=== PATIENT | male | born 1945 | race Caucasian/White ===

== ENCOUNTER → 2017-10-15 | Outpatient (CLI) | payer MEDICARE ==
[~2017-10-15] MED LIST: ALBU2.5V5 NEB; ALBU3IS INH; ALBU90OI INH; AMIODARONE HCL100 MG; AMOCLA500 PO; ASPI325 PO; ASPI81CH PO; ASPI81EC PO; ATEN25 PO; ATEN50; ATOR10 PO; ATOR20 PO; ATOR40TA; ATOR40TA PO; ATORVASTATIN CA10 MG PO; Acidophilus La100 GM PO; Amoxicillin500 MG PO; BECL40OI INH; BETA.05TCA TOP; BUDE10.22 INH; BUDE6HFA INH; BUPRENORPHINE HC2 MG SL; Bactrim Ds Tab1 EACH PO; Brovana15 MCG/2 M INH; CARV6.25 PO; CEFU50SU PO; CEPH500 PO; CILO100 PO; CIPR500 PO; CLOP75 PO; CYCL10 PO; Carvedilol6.25 MG PO; Coumadin5 MG PO; DELTASONE20 MG PO; DIPASPER PO; DULO30 PO; FELO5CR; FURO40 PO; GABA300; GABA300 PO; GABA600 PO; HYDACE10B; HYDACE10B PO; HYDACE5; HYDMOR2 PO; HYDRA25 PO; Hydrocodone-Ap1 EA20 PO; INSLIS75I; ISODIN10; ISOMON30 PO; Isosorbide Mono30 MG PO; LEVO750 PO; LISI5 PO; METH10 PO; Macrobid 100 M100 MG PO; NAPR500 PO; Norco 10-325 T1 EACH PO; POTCHL20ER PO; PRED10 PO; Prednisone20 MG PO; RAMI5; RAMI5 PO; Roxicet 5-3251 EACH PO; TERB250 PO; TRAM50 PO; XARELTO20 MG PO; [UNRECOGNIZED DRUG - REMARK]
[2017-10-15 16:33] LABS: BASOPHILS ABSOLUTE AUTO 0.05 K/mm3 (0.00-0.23); BASOPHILS PERCENT AUTO 0 % (0-2); EOSINOPHILS ABSOLUTE AUTO 0.12 K/mm3 (0.00-0.68); EOSINOPHILS PERCENT AUTO 1 % (0-6); Hematocrit 36.9 % (37.0-53.0); Hemoglobin 11.2 g/dL (13.5-17.5); IMMATURE GRAN ABSOLUTE AUTO 0.05 K/mm3 (0.00-0.10); IMMATURE GRAN PERCENT AUTO 0 % (0-1); LYMPHOCYTES ABSOLUTE AUTO 2.36 K/mm3 (0.84-5.20); LYMPHOCYTES PERCENT AUTO 21 % (21-46); MONOCYTES ABSOLUTE AUTO 1.16 K/mm3 (0.16-1.47); MONOCYTES PERCENT AUTO 10 % (4-13); Mean Corpuscular HGB 24.4 pg (26.0-34.0); Mean Corpuscular HGB Conc 30.4 g/dL (31.5-36.5); Mean Corpuscular Volume 80 fL (80-100); Mean Platelet Volume 9.6 fL (9.1-12.4); NEUTROPHILS ABSOLUTE AUTO 7.73 K/mm3 (1.96-9.15); NEUTROPHILS PERCENT AUTO 68 % (41-73); Platelet Count 303 K/mm3 (150-400); RDW Coefficient Variation 16.8 % (11.7-14.2); Red Blood Cell Count 4.59 M/mm3 (4.30-5.90); White Blood Cell Count 11.47 K/mm3 (4.00-11.30)
[2017-10-15 16:51] LABS: Albumin, Blood 2.4 g/dL (3.4-5.0); Albumin/Globulin Ratio 0.5 (0.8-1.8); Bilirubin, Total 0.3 mg/dL (0.1-1.0); Bun/Creatinine Ratio 18.2 (12.0-20.0); Calcium, Blood 8.8 mg/dL (8.5-10.1); Creatinine, Blood 2.69 mg/dL (0.60-1.20); Globulin, Blood 4.7 g/dL (2.2-4.0); Potassium, Blood 4.2 mmol/L (3.5-5.5); Total Protein, Blood 7.1 g/dL (6.4-8.2)
== END | disposition home or self-care (01) ==
LOC: LAB SHORT 16:26
PROVIDERS: Physician Assistant
DX: R06.00 Dyspnea, unspecified (principal)
CPT/HCPCS: 80053; 83880; 85025

== ENCOUNTER 2017-10-16 17:03 | Emergency (ER) | payer MEDICARE ==
[~2017-10-16] VITALS: Ht 172.7 cm; Wt 84.8 kg
[~2017-10-16 17:03] MED LIST changes: -ALBU2.5V5 NEB; -AMIODARONE HCL100 MG; -AMOCLA500 PO; -ATOR40TA PO; -Acidophilus La100 GM PO; -BUPRENORPHINE HC2 MG SL; -Bactrim Ds Tab1 EACH PO; -DELTASONE20 MG PO; -DULO30 PO; -HYDMOR2 PO; -Prednisone20 MG PO; -TERB250 PO
[2017-10-16] MEDS ORDERED: AMIODARONE HCL100 MG (17:46)
[2017-10-16] MEDS ORDERED: ATOR40TA PO (17:47)
[2017-10-16] MEDS ORDERED: AMOCLA500 PO (17:48)
[2017-10-16] MEDS ORDERED: Brovana15 MCG/2 M INH (17:48)
[2017-10-16] MEDS ORDERED: CLOP75 PO (17:49)
[2017-10-16] MEDS ORDERED: CARV6.25 PO (17:49)
[2017-10-16] MEDS ORDERED: DULO30 PO (17:50)
[2017-10-16] MEDS ORDERED: TERB250 PO (17:51)
[2017-10-16] MEDS ORDERED: HYDMOR2 PO (17:53)
[2017-10-16 17:59] LABS: BASOPHILS ABSOLUTE AUTO 0.03 K/mm3 (0.00-0.23); BASOPHILS PERCENT AUTO 0 % (0-2); EOSINOPHILS ABSOLUTE AUTO 0.11 K/mm3 (0.00-0.68); EOSINOPHILS PERCENT AUTO 1 % (0-6); Hematocrit 38.4 % (37.0-53.0); Hemoglobin 11.6 g/dL (13.5-17.5); IMMATURE GRAN ABSOLUTE AUTO 0.04 K/mm3 (0.00-0.10); IMMATURE GRAN PERCENT AUTO 1 % (0-1); LYMPHOCYTES ABSOLUTE AUTO 2.23 K/mm3 (0.84-5.20); LYMPHOCYTES PERCENT AUTO 27 % (21-46); MONOCYTES ABSOLUTE AUTO 1.09 K/mm3 (0.16-1.47); MONOCYTES PERCENT AUTO 13 % (4-13); Mean Corpuscular HGB 24.5 pg (26.0-34.0); Mean Corpuscular HGB Conc 30.2 g/dL (31.5-36.5); Mean Corpuscular Volume 81 fL (80-100); Mean Platelet Volume 9.3 fL (9.1-12.4); NEUTROPHILS ABSOLUTE AUTO 4.86 K/mm3 (1.96-9.15); NEUTROPHILS PERCENT AUTO 58 % (41-73); Platelet Count 286 K/mm3 (150-400); RDW Coefficient Variation 16.7 % (11.7-14.2); RDW Standard Deviation 50.4 fL (35.1-46.3); Red Blood Cell Count 4.73 M/mm3 (4.30-5.90); White Blood Cell Count 8.36 K/mm3 (4.00-11.30)
[2017-10-16 18:17] LABS: Albumin, Blood 2.4 g/dL (3.4-5.0); Albumin/Globulin Ratio 0.5 (0.8-1.8); Bilirubin, Total 0.2 mg/dL (0.1-1.0); Bun/Creatinine Ratio 23.3 (12.0-20.0); Calcium, Blood 8.5 mg/dL (8.5-10.1); Creatinine, Blood 2.32 mg/dL (0.60-1.20); Globulin, Blood 4.6 g/dL (2.2-4.0); Potassium, Blood 3.9 mmol/L (3.5-5.5)
[2017-10-16 18:38] LABS: Source, Urine Clean Catch
[2017-10-16 18:52] LABS: Appearance, Urine Turbid (Clear); Bilirubin, Urine Neg (Neg); Blood, Urine 4+ (Neg); Color, Urine Yellow (P-Yellow); Glucose Qualitative, Urine Neg (Neg); Ketones, Urine Neg (Neg); Leukocyte Esterase, Urine 3+ (Neg); Nitrite, Urine Neg (Neg); Protein, Urine 3+ (Neg); Specific Gravity, Urine 1.015 (1.003-1.022); Urobilinogen, Urine NORM (Normal)
[2017-10-16 19:00] LABS: White Blood Cells, Urine TNTC /hpf (0-5)
[2017-10-16 19:01] LABS: Amorphous Heavy (0-Heavy); Bacteria Many /hpf; Squamous Epithelial Cells Few /hpf (Few)
[2017-10-16 19:11] LABS: Influenza A Negative (NEGATIVE); Influenza B Negative (NEGATIVE)
[2017-10-16] MEDS ORDERED: Bactrim Ds Tab1 EACH PO (19:28)
[2017-10-16] MEDS ORDERED: Prednisone20 MG PO (19:29)
== END 2017-10-16 19:50 | disposition home or self-care (01) ==
LOC: ER 17:03
PROVIDERS: Emergency Medicine; Physician Assistant
DX: J44.1 Chronic obstructive pulmonary disease with (acute) exacerbation (principal); J20.9 Acute bronchitis, unspecified; J44.0 Chronic obstructive pulmonary disease with (acute) lower respiratory infection; N39.0 Urinary tract infection, site not specified; Z88.8 Allergy status to other drugs, medicaments and biological substances; Z79.899 Other long term (current) drug therapy; Z79.82 Long term (current) use of aspirin; Z79.2 Long term (current) use of antibiotics; I25.2 Old myocardial infarction; Z85.51 Personal history of malignant neoplasm of bladder
CPT/HCPCS: 36415; 71020; 80053; 81001; 83880; 85025; 87086; 87804; 93005; 93010; 96374; 99284; J1170

== ENCOUNTER → 2017-11-25 | Outpatient (CLI) | payer MEDICARE ==
[~2017-11-25] MED LIST changes: +ALBU2.5V5 NEB; +AMIODARONE HCL100 MG; +AMOCLA500 PO; +ATOR40TA PO; +Acidophilus La100 GM PO; +BUPRENORPHINE HC2 MG SL; +Bactrim Ds Tab1 EACH PO; +DELTASONE20 MG PO; +DULO30 PO; +HYDMOR2 PO; +Prednisone20 MG PO; +TERB250 PO
[2017-11-25 10:54] LABS: Influenza A Negative (NEGATIVE); Influenza B Negative (NEGATIVE)
== END ==
LOC: LAB 10:23
PROVIDERS: Nurse Practitioner Family
DX: J40 Bronchitis, not specified as acute or chronic (principal); R05 Cough; N39.0 Urinary tract infection, site not specified
CPT/HCPCS: 87086; 87804

== ENCOUNTER → 2017-12-22 | Outpatient (CLI) | payer MEDICARE | END | disposition home or self-care (01) | LOC: LAB 13:44 | DX: N39.0 Urinary tract infection, site not specified (principal) | CPT/HCPCS: 87086 ==

== ENCOUNTER 2018-04-11 02:29 | Inpatient (IN) | payer MEDICARE ==
[~2018-04-11] VITALS: Ht 172.7 cm; Wt 80.7 kg
[~2018-04-11 02:29] MED LIST changes: -ALBU2.5V5 NEB; -Acidophilus La100 GM PO; -BUPRENORPHINE HC2 MG SL; -DELTASONE20 MG PO
[2018-04-11 03:22] LABS: Hematocrit 41.1 % (37.0-53.0); Hemoglobin 13.3 g/dL (13.5-17.5); Mean Corpuscular HGB 27.2 pg (26.0-34.0); Mean Corpuscular HGB Conc 32.4 g/dL (31.5-36.5); Mean Corpuscular Volume 84 fL (80-100); RDW Coefficient Variation 14.3 % (11.7-14.2); RDW Standard Deviation 43.8 fL (35.1-46.3); Red Blood Cell Count 4.89 M/mm3 (4.30-5.90)
[2018-04-11 03:26] LABS: Platelet Count 230 K/mm3 (150-400)
[2018-04-11 03:46] LABS: BAND PERCENT MAN 32 % (0-8); BASOPHILS PERCENT MAN 0 % (0-2); EOSINOPHILS PERCENT MAN 0 % (0-6); LYMPHOCYTES ABSOLUTE MAN 0.82 K/mm3 (0.84-5.20); LYMPHOCYTES PERCENT MAN 4 % (21-46); METAMYELOCYTE ABSOLUTE MAN 1.23 K/mm3 (0.00-0.00); METAMYELOCYTE PERCENT MAN 6 % (0-0); MONOCYTES PERCENT MAN 1 % (4-13); MYELOCYTE PERCENT MAN 1 % (0-0); NEUTROPHILS ABSOLUTE MAN 18.12 K/mm3 (1.96-9.15); SEG NEUTROPHILS PERCENT MAN 56 % (41-73); TOTAL CELLS COUNTED 100
[2018-04-11 04:11] LABS: Albumin, Blood 2.8 g/dL (3.4-5.0); Albumin/Globulin Ratio 0.6 (0.8-1.8); Bilirubin, Total 0.7 mg/dL (0.1-1.0); Bun/Creatinine Ratio 17.4 (12.0-20.0); Calcium, Blood 8.8 mg/dL (8.5-10.1); Creatinine, Blood 2.59 mg/dL (0.60-1.20); Globulin, Blood 4.7 g/dL (2.2-4.0); Potassium, Blood 4.7 mmol/L (3.5-5.5); Total Protein, Blood 7.5 g/dL (6.4-8.2)
[2018-04-11 06:10] LABS: Hematocrit 40.8 % (37.0-53.0); Mean Corpuscular HGB 27.3 pg (26.0-34.0); Mean Corpuscular HGB Conc 31.9 g/dL (31.5-36.5); Mean Corpuscular Volume 86 fL (80-100); Mean Platelet Volume 10.1 fL (9.1-12.4); Platelet Count 226 K/mm3 (150-400); RDW Coefficient Variation 14.1 % (11.7-14.2); RDW Standard Deviation 44.1 fL (35.1-46.3); Red Blood Cell Count 4.77 M/mm3 (4.30-5.90); White Blood Cell Count 19.19 K/mm3 (4.00-11.30)
[2018-04-11 06:29] LABS: Albumin, Blood 2.7 g/dL (3.4-5.0); Albumin/Globulin Ratio 0.6 (0.8-1.8); Bilirubin, Total 0.6 mg/dL (0.1-1.0); Calcium, Blood 8.6 mg/dL (8.5-10.1); Creatinine, Blood 2.53 mg/dL (0.60-1.20); Globulin, Blood 4.9 g/dL (2.2-4.0); Total Protein, Blood 7.6 g/dL (6.4-8.2)
[2018-04-12 04:35] LABS: BASOPHILS ABSOLUTE AUTO 0.02 K/mm3 (0.00-0.23); BASOPHILS PERCENT AUTO 0 % (0-2); EOSINOPHILS PERCENT AUTO 0 % (0-6); Hematocrit 41.4 % (37.0-53.0); Hemoglobin 13.7 g/dL (13.5-17.5); IMMATURE GRAN ABSOLUTE AUTO 0.06 K/mm3 (0.00-0.10); IMMATURE GRAN PERCENT AUTO 0 % (0-1); LYMPHOCYTES ABSOLUTE AUTO 0.61 K/mm3 (0.84-5.20); LYMPHOCYTES PERCENT AUTO 4 % (21-46); MONOCYTES ABSOLUTE AUTO 0.85 K/mm3 (0.16-1.47); MONOCYTES PERCENT AUTO 6 % (4-13); Mean Corpuscular HGB 26.9 pg (26.0-34.0); Mean Corpuscular HGB Conc 33.1 g/dL (31.5-36.5); Mean Corpuscular Volume 81 fL (80-100); Mean Platelet Volume 10.2 fL (9.1-12.4); NEUTROPHILS ABSOLUTE AUTO 13.84 K/mm3 (1.96-9.15); NEUTROPHILS PERCENT AUTO 90 % (41-73); Platelet Count 271 K/mm3 (150-400); RDW Standard Deviation 41.1 fL (35.1-46.3); Red Blood Cell Count 5.09 M/mm3 (4.30-5.90); White Blood Cell Count 15.38 K/mm3 (4.00-11.30)
[2018-04-12 04:47] LABS: Bun/Creatinine Ratio 28.2 (12.0-20.0); Calcium, Blood 9.2 mg/dL (8.5-10.1); Creatinine, Blood 2.38 mg/dL (0.60-1.20); Potassium, Blood 4.4 mmol/L (3.5-5.5)
[2018-04-12] MEDS ORDERED: BUPRENORPHINE HC2 MG SL (18:46)
[2018-04-13 04:26] LABS: Hematocrit 40.4 % (37.0-53.0); Mean Corpuscular HGB 26.2 pg (26.0-34.0); Mean Corpuscular HGB Conc 32.2 g/dL (31.5-36.5); Mean Corpuscular Volume 82 fL (80-100); Mean Platelet Volume 10.9 fL (9.1-12.4); NRBC ABSOLUTE 0.02 K/mm3 (0.00-0.02); NRBC Auto 0.1 /100 WBC (0.0-0.2); Platelet Count 276 K/mm3 (150-400); RDW Coefficient Variation 14.5 % (11.7-14.2); RDW Standard Deviation 42.3 fL (35.1-46.3); Red Blood Cell Count 4.96 M/mm3 (4.30-5.90); White Blood Cell Count 14.87 K/mm3 (4.00-11.30)
[2018-04-13 04:54] LABS: Bun/Creatinine Ratio 38.4 (12.0-20.0); Creatinine, Blood 2.11 mg/dL (0.60-1.20); Potassium, Blood 4.2 mmol/L (3.5-5.5)
[2018-04-13] MEDS ORDERED: DELTASONE20 MG PO (11:31)
[2018-04-13] MEDS ORDERED: ALBU2.5V5 NEB (11:32)
[2018-04-13] MEDS ORDERED: Acidophilus La100 GM PO (11:33)
[2018-04-13] MEDS ORDERED: LEVO750 PO (11:35)
== END 2018-04-13 13:50 | disposition home or self-care (01) | DRG 871 ==
LOC: ER 02:29 → ERHOLD 05:02 → ICUW 12:53
PROVIDERS: Emergency Medicine; Internal Medicine
DX: A41.9 Sepsis, unspecified organism (principal); J18.9 Pneumonia, unspecified organism; J96.01 Acute respiratory failure with hypoxia; N18.4 Chronic kidney disease, stage 4 (severe); J44.1 Chronic obstructive pulmonary disease with (acute) exacerbation; J44.0 Chronic obstructive pulmonary disease with (acute) lower respiratory infection; N17.9 Acute kidney failure, unspecified; G89.29 Other chronic pain
CPT/HCPCS: 36415; 71046; 80048; 80053; 83605; 83880; 84145; 85025; 85027; 93005; 93010; 94640; 96365; 96368; 96372; 96375; 96376; 99285; J0456; J0696; J1650; J1956; J2405; J2930; J3010; J7030; J7050

== ENCOUNTER → 2018-10-19 | Outpatient (CLI) | payer MEDICARE ==
[~2018-10-19] MED LIST changes: +ALBU2.5V5 NEB; +ANORO ELLIPTA1 EACH INH; +Acidophilus La100 GM PO; +BUPRENORPHINE HC2 MG SL; +CIPR250 PO; +DELTASONE20 MG PO; +Desyrel150 MG; +HYDHCL25 PO; +Keflex500 MG PO
[2018-10-19 17:36] LABS: Appearance, Urine Hazy (Clear); Bilirubin, Urine Neg (Neg); Blood, Urine 3+ (Neg); Color, Urine Yellow (P-Yellow); Glucose Qualitative, Urine Neg (Neg); Ketones, Urine Neg (Neg); Leukocyte Esterase, Urine 3+ (Neg); Nitrite, Urine Pos (Neg); Protein, Urine 3+ (Neg); Specific Gravity, Urine 1.015 (1.003-1.022); Urobilinogen, Urine NORM (Normal)
[2018-10-19 18:20] LABS: Red Blood Cells, Urine 0-2 /hpf (0-2)
[2018-10-19 18:21] LABS: Bacteria Few /hpf; Squamous Epithelial Cells Not Seen /hpf (Few)
== END | disposition home or self-care (01) ==
LOC: LAB 14:15 → LAB SHORT 14:15
PROVIDERS: Internal Medicine Nephrology
DX: N39.0 Urinary tract infection, site not specified (principal)
CPT/HCPCS: 81001; 87077; 87086; 87186

== ENCOUNTER 2018-10-24 08:59 | Emergency (ER) | payer MEDICARE ==
[~2018-10-24] VITALS: Ht 172.7 cm; Wt 102.1 kg
[~2018-10-24 08:59] MED LIST changes: -ANORO ELLIPTA1 EACH INH; -CIPR250 PO; -Desyrel150 MG; -HYDHCL25 PO; -Keflex500 MG PO
[2018-10-24 09:39] LABS: BASOPHILS ABSOLUTE AUTO 0.08 K/mm3 (0.00-0.23); BASOPHILS PERCENT AUTO 1 % (0-2); EOSINOPHILS ABSOLUTE AUTO 0.48 K/mm3 (0.00-0.68); EOSINOPHILS PERCENT AUTO 4 % (0-6); Hematocrit 37.3 % (37.0-53.0); Hemoglobin 11.4 g/dL (13.5-17.5); IMMATURE GRAN ABSOLUTE AUTO 0.14 K/mm3 (0.00-0.10); IMMATURE GRAN PERCENT AUTO 1 % (0-1); LYMPHOCYTES ABSOLUTE AUTO 4.03 K/mm3 (0.84-5.20); LYMPHOCYTES PERCENT AUTO 31 % (21-46); MONOCYTES ABSOLUTE AUTO 1.48 K/mm3 (0.16-1.47); MONOCYTES PERCENT AUTO 11 % (4-13); Mean Corpuscular HGB 24.6 pg (26.0-34.0); Mean Corpuscular HGB Conc 30.6 g/dL (31.5-36.5); Mean Corpuscular Volume 80 fL (80-100); Mean Platelet Volume 9.1 fL (9.1-12.4); NEUTROPHILS PERCENT AUTO 53 % (41-73); NRBC ABSOLUTE 0.21 K/mm3 (0.00-0.02); NRBC Auto 1.6 /100 WBC (0.0-0.2); Platelet Count 428 K/mm3 (150-400); RDW Coefficient Variation 15.5 % (11.7-14.2); Red Blood Cell Count 4.64 M/mm3 (4.30-5.90); White Blood Cell Count 13.11 K/mm3 (4.00-11.30)
[2018-10-24 09:50] LABS: Alanine Aminotransfer (ALT/SGP 26 U/L (12-78); Albumin, Blood 2.3 g/dL (3.4-5.0); Albumin/Globulin Ratio 0.5 (0.8-1.8); Alk Phos 114 U/L (50-136); Anion Gap 10 mmol/L (6-16); Aspartate Aminotrans (AST/SGOT 25 U/L (12-37); Bilirubin, Total 0.5 mg/dL (0.1-1.0); Blood Urea Nitrogen 42 mg/dL (8-24); CO2, Blood 21 mmol/L (21-32); Chloride, Blood 105 mmol/L (98-108); Ethanol (Alcohol), Blood, Med <3 mg/dL; Globulin, Blood 4.8 g/dL (2.2-4.0); Glomerular Filtration Rate 33 (60-); Glucose, Blood 93 mg/dL (70-99); Potassium, Blood 3.8 mmol/L (3.5-5.5); Sodium, Blood 136 mmol/L (136-145); Total Protein, Blood 7.1 g/dL (6.4-8.2)
[2018-10-24 09:52] LABS: International Normalized Ratio 1.09; Prothrombin Time Results 11.2 Sec (9.7-11.5)
[2018-10-24 10:51] LABS: Source, Urine Urostomy Bag
[2018-10-24] MEDS ORDERED: CIPR250 PO (10:53)
[2018-10-24] MEDS ORDERED: ANORO ELLIPTA1 EACH INH (10:53)
[2018-10-24] MEDS ORDERED: BUPRENORPHINE HC2 MG SL (10:54)
[2018-10-24] MEDS ORDERED: ATOR10 PO (10:55)
[2018-10-24] MEDS ORDERED: HYDHCL25 PO (10:55)
[2018-10-24] MEDS ORDERED: GABA300 PO (10:55)
[2018-10-24 10:56] LABS: Bilirubin, Urine Neg (Neg); Blood, Urine 4+ (Neg); Glucose Qualitative, Urine Neg (Neg); Ketones, Urine Neg (Neg); Leukocyte Esterase, Urine 3+ (Neg); Nitrite, Urine Neg (Neg); Protein, Urine 3+ (Neg); Urobilinogen, Urine NORM (Normal)
[2018-10-24] MEDS ORDERED: ALBU90OI INH (10:56)
[2018-10-24] MEDS ORDERED: Desyrel150 MG (10:56)
[2018-10-24 11:08] LABS: U Amphetamine Screen Not Detected; U Barbituate Screen Not Detected; U Benzodiazapine Screen Not Detected; U Buprenorphine Screen DETECTED; U Cannabinoids Screen Not Detected; U Cocaine Screen Not Detected; U Methadone Screen Not Detected; U Methamphetamine Screen Not Detected; U Opiates Screen Not Detected; U Oxycodone Screen Not Detected; U Phencyclidine Screen Not Detected; U Propoxyphene Screen Not Detected
[2018-10-24 11:19] LABS: Appearance, Urine Hazy (Clear); Bacteria Mod /hpf; Color, Urine Yellow (P-Yellow); Squamous Epithelial Cells Not Seen /hpf (Few); White Blood Cells, Urine 50-100 /hpf (0-5)
[2018-10-24] MEDS ORDERED: Keflex500 MG PO (11:34)
== END 2018-10-24 11:42 | disposition home or self-care (01) ==
LOC: ER 08:59
PROVIDERS: Physician Assistant
DX: I63.9 Cerebral infarction, unspecified (principal); N39.0 Urinary tract infection, site not specified; I50.9 Heart failure, unspecified; J44.9 Chronic obstructive pulmonary disease, unspecified; N18.4 Chronic kidney disease, stage 4 (severe); I25.2 Old myocardial infarction; Z95.5 Presence of coronary angioplasty implant and graft; F17.220 Nicotine dependence, chewing tobacco, uncomplicated
CPT/HCPCS: 36415; 70450; 80053; 81001; 85025; 85610; 85730; 87077; 87086; 87186; 93005; 93010; 96360; 99285-25; G0480; J7030

== ENCOUNTER 2018-12-28 11:52 | Inpatient (IN) | payer MEDICARE ==
[~2018-12-28] VITALS: Ht 175.3 cm; Wt 88.1 kg
[~2018-12-28 11:52] MED LIST changes: +ANORO ELLIPTA1 EACH INH; +CIPR250 PO; +Desyrel150 MG; +HYDHCL25 PO; +Keflex500 MG PO
[2018-12-28 12:33] LABS: BASOPHILS ABSOLUTE AUTO 0.09 K/mm3 (0.00-0.23); BASOPHILS PERCENT AUTO 0 % (0-2); EOSINOPHILS ABSOLUTE AUTO 0.01 K/mm3 (0.00-0.68); EOSINOPHILS PERCENT AUTO 0 % (0-6); Hematocrit 35.5 % (37.0-53.0); Hemoglobin 11.4 g/dL (13.5-17.5); IMMATURE GRAN ABSOLUTE AUTO 0.65 K/mm3 (0.00-0.10); IMMATURE GRAN PERCENT AUTO 2 % (0-1); LYMPHOCYTES PERCENT AUTO 3 % (21-46); MONOCYTES ABSOLUTE AUTO 1.67 K/mm3 (0.16-1.47); MONOCYTES PERCENT AUTO 5 % (4-13); Mean Corpuscular HGB 23.2 pg (26.0-34.0); Mean Corpuscular HGB Conc 32.1 g/dL (31.5-36.5); Mean Corpuscular Volume 72 fL (80-100); Mean Platelet Volume 9.6 fL (9.1-12.4); NEUTROPHILS PERCENT AUTO 90 % (41-73); NRBC ABSOLUTE 0.08 K/mm3 (0.00-0.02); NRBC Auto 0.2 /100 WBC (0.0-0.2); Platelet Count 559 K/mm3 (150-400); RDW Coefficient Variation 18.4 % (11.7-14.2); RDW Standard Deviation 46.5 fL (35.1-46.3); Red Blood Cell Count 4.91 M/mm3 (4.30-5.90); White Blood Cell Count 35.52 K/mm3 (4.00-11.30)
[2018-12-28 12:48] LABS: Albumin, Blood 1.5 g/dL (3.4-5.0); Albumin/Globulin Ratio 0.3 (0.8-1.8); Bilirubin, Total 0.5 mg/dL (0.1-1.0); Bun/Creatinine Ratio 28.3 (12.0-20.0); Calcium, Blood 8.4 mg/dL (8.5-10.1); Creatinine, Blood 4.27 mg/dL (0.60-1.20); Globulin, Blood 5.7 g/dL (2.2-4.0); Potassium, Blood 4.4 mmol/L (3.5-5.5); Total Protein, Blood 7.2 g/dL (6.4-8.2)
[2018-12-28] MEDS ORDERED: CLOP75 PO (18:07)
[2018-12-28] MEDS ORDERED: SERT50 PO (18:07)
[2018-12-28 22:15] LABS: Source, Urine Catheter
[2018-12-28 22:18] LABS: Bilirubin, Urine Neg (Neg); Blood, Urine 5+ (Neg); Glucose Qualitative, Urine Neg (Neg); Ketones, Urine Neg (Neg); Leukocyte Esterase, Urine 3+ (Neg); Nitrite, Urine Neg (Neg); Protein, Urine 3+ (Neg); Urobilinogen, Urine NORM (Normal); pH, Urine 6.5 (5.0-8.0)
[2018-12-28 22:44] LABS: Appearance, Urine Cloudy (Clear); Color, Urine Yellow (P-Yellow)
[2018-12-28 22:45] LABS: White Blood Cells, Urine TNTC /hpf (0-5)
[2018-12-28 22:46] LABS: Bacteria Many /hpf; Red Blood Cells, Urine 25-50 /hpf (0-2); Squamous Epithelial Cells Rare /hpf (Few)
[2018-12-28] MEDS ORDERED: LEVFLO500 PO (23:13)
[2018-12-29 05:36] LABS: BASOPHILS ABSOLUTE AUTO 0.06 K/mm3 (0.00-0.23); BASOPHILS PERCENT AUTO 0 % (0-2); EOSINOPHILS ABSOLUTE AUTO 0.09 K/mm3 (0.00-0.68); EOSINOPHILS PERCENT AUTO 0 % (0-6); Hematocrit 33.7 % (37.0-53.0); Hemoglobin 10.7 g/dL (13.5-17.5); IMMATURE GRAN ABSOLUTE AUTO 0.71 K/mm3 (0.00-0.10); IMMATURE GRAN PERCENT AUTO 3 % (0-1); LYMPHOCYTES ABSOLUTE AUTO 1.39 K/mm3 (0.84-5.20); LYMPHOCYTES PERCENT AUTO 5 % (21-46); MONOCYTES ABSOLUTE AUTO 1.52 K/mm3 (0.16-1.47); MONOCYTES PERCENT AUTO 5 % (4-13); Mean Corpuscular HGB 23.3 pg (26.0-34.0); Mean Corpuscular HGB Conc 31.8 g/dL (31.5-36.5); Mean Corpuscular Volume 73 fL (80-100); Mean Platelet Volume 9.1 fL (9.1-12.4); NEUTROPHILS ABSOLUTE AUTO 24.61 K/mm3 (1.96-9.15); NEUTROPHILS PERCENT AUTO 87 % (41-73); NRBC ABSOLUTE 0.05 K/mm3 (0.00-0.02); NRBC Auto 0.2 /100 WBC (0.0-0.2); Platelet Count 549 K/mm3 (150-400); RDW Coefficient Variation 18.4 % (11.7-14.2); RDW Standard Deviation 47.9 fL (35.1-46.3); White Blood Cell Count 28.38 K/mm3 (4.00-11.30)
--- NOTE | 2018-12-29 05:41 | NUR ---
SHIFT SUMMARY PT ARRIVED TO ROOM APPROX 2129. A/O BUT SLOW TO RESPOND/THINK AND GAKONA. UROSTOMY DRAINING. C/O PAIN IN R SIDE KIDNEY AREA AND LOWER BACK AND GOT ORDERS FOR FENTANYL FROM AUDREY ELIZABETH. MEDICATED X2. SCD'S IN PLACE. HE WAS ABLE TO DOZE ON AND OFF T/O NIGHT. STRONG URINE FOUL SMELL NOTED. CALL LIGHT IN REACH
[2018-12-29 06:12] LABS: Bun/Creatinine Ratio 35.5 (12.0-20.0); Calcium, Blood 7.1 mg/dL (8.5-10.1); Creatinine, Blood 3.38 mg/dL (0.60-1.20)
--- NOTE | 2018-12-29 16:21 | NUR ---
CALLED DR. POTTS'S PA REPORTED SANGUINOUS FLUID DRAINING INTO THE UROSTOMY BAG. OBVIOUSLY BLOOD MIXED WITH URINE. REPORTED THAT THE NEPHROSTOMY BAG HAD NO FURTHER DRAINAGE, ALTHOUGH EARLIER IT HAD 70 ML (W/ A FEW SMALL CLOTS). PA STATED THAT THIS WAS ACCEPTABLE. TOMORROW THEY MAY CONSIDER PUTTING A STOPLOCK ON THE NEPHROSTOMY TUBE, OR THEY MIGHT RECOMMEND AN INJECTION OF 5 CC STERILE SALINE INTO THE NEPHROSTOMY TUBE AFTER DISCONNECTING BAG.
--- NOTE | 2018-12-29 16:30 | NUR ---
SHIFT SUMMARY ADMITTED FOR PYELONEPHRITIS, A KIDNEY STONE WAS FOUND IN THE RT URETER. PT HAS A CHRONIC SUPRAPUBIC CATHETER/UROSTOMY (1984) HX OF KIDNEY CANCER. DR. POTTS PERFORMED A NEPHROSTOMY TODAY. 70 ML OF SANGUINOUS FLUID *WITH TWO CLOTS* WAS EMPTIED SOON AFTER THE PROCEDURE, BUT NO DRAINAGE SINCE. THE UROSTOMY BAG HAS 950 ML OUTPUT SO FAR AND IS NOW BLOOD MIXED WITH URINE. I DID CALL DR. FAGAN'S PA TO INFORM AND HE SAID THIS WAS TO BE EXPECTED FOR NOW. PT STATES HE HAS SEVERE PAIN, BUT HAS NOT ASKED FOR PAIN MEDS THE PAST TWO HOURS. HIS IS IN THE ROOM, AND PAPITO ASKED HER TO CALL ME. IV IS IN RT FOREARM. PT HAS A HX OF CO, CVA.
--- NOTE | 2018-12-30 07:04 | NUR ---
SHIFT SUMMARY PT VERY DROWSY LETHARGIC. SLEPT THROUGH THE NIGHT. IN AM ASKED FOR PAIN MEDS AND MEDICATED PER EMAR. R NEPHROSTOMY HAD 80 BLOODY OUTPUT. UROSTOMY/SUPRAPUBIC CATH/TUBE DRAINING DARK CRANBERRY COLOR URINE. CALL LIGHT IN REACH
[2018-12-30 11:50] LABS: BASOPHILS ABSOLUTE AUTO 0.04 K/mm3 (0.00-0.23); BASOPHILS PERCENT AUTO 0 % (0-2); EOSINOPHILS ABSOLUTE AUTO 0.11 K/mm3 (0.00-0.68); EOSINOPHILS PERCENT AUTO 1 % (0-6); Hematocrit 35.7 % (37.0-53.0); Hemoglobin 11.1 g/dL (13.5-17.5); IMMATURE GRAN ABSOLUTE AUTO 0.37 K/mm3 (0.00-0.10); IMMATURE GRAN PERCENT AUTO 2 % (0-1); LYMPHOCYTES ABSOLUTE AUTO 0.86 K/mm3 (0.84-5.20); LYMPHOCYTES PERCENT AUTO 5 % (21-46); MONOCYTES PERCENT AUTO 7 % (4-13); Mean Corpuscular HGB Conc 31.1 g/dL (31.5-36.5); Mean Corpuscular Volume 74 fL (80-100); NEUTROPHILS ABSOLUTE AUTO 15.82 K/mm3 (1.96-9.15); NEUTROPHILS PERCENT AUTO 86 % (41-73); NRBC ABSOLUTE 0.04 K/mm3 (0.00-0.02); NRBC Auto 0.2 /100 WBC (0.0-0.2); Platelet Count 494 K/mm3 (150-400); RDW Coefficient Variation 19.1 % (11.7-14.2); Red Blood Cell Count 4.83 M/mm3 (4.30-5.90)
[2018-12-30 12:09] LABS: Creatinine, Blood 3.9 mg/dL (0.60-1.20); Potassium, Blood 4.4 mmol/L (3.5-5.5)
--- NOTE | 2018-12-30 16:20 | NUR ---
SHIFT SUMMARY PT RECEIVED A NEW NEPHROSTOMY YESTERDAY. HE HAS A SUPRAPUBIC CATHETER AND UROSTOMY FROM 1984. TODAY THE URINE IN THE UROSTOMY BAG HAS CHANGED FROM SANGUINOUS TO DARK KEEGAN. THE IS HAPPY WITH THE PT'S PROGRESS THUS FAR. THE PT SEEMS MORE RESPONSIVE TO ME TODAY, HE IS MAKING REQUESTS AND ANSWERING QUESTIONS. IV-LR WAS STARTED TODAY . PT ADMITTED FOR PYELONEPHRITIS, HAS A KIDNEY STONE. HE HAD SEPSIS, LIKELY FROM A UTI FOR WHICH HE IS ON BROAD S[employer]RUM ANTIBIOTICS UNTIL THE ORGANISM IS IDENTIFIED. PT IS A FULL CODE. IV FENTANYL IS AVAILABLE FOR THE PT'S SEVERE PAIN.
--- NOTE | 2018-12-30 20:40 | NUR ---
CALL LIGHT IN REACH, IN BED. HAS A NEPHROSTOMY AND A UROSTOMY. DIDNT EAT ANY OF HIS DINNER. HAS BEEN DRINKING WATER ALL DAY. DOESNT SHOW ANY RESPONSE TO QUESTIONS EXCEPT NODDING OR STARING.DOESNT WANT A BED BATH NOR TEETH BRUSHED.
[2018-12-31 05:14] LABS: BASOPHILS ABSOLUTE AUTO 0.03 K/mm3 (0.00-0.23); BASOPHILS PERCENT AUTO 0 % (0-2); EOSINOPHILS ABSOLUTE AUTO 0.21 K/mm3 (0.00-0.68); EOSINOPHILS PERCENT AUTO 1 % (0-6); Hematocrit 35.2 % (37.0-53.0); Hemoglobin 10.9 g/dL (13.5-17.5); IMMATURE GRAN ABSOLUTE AUTO 0.34 K/mm3 (0.00-0.10); IMMATURE GRAN PERCENT AUTO 2 % (0-1); LYMPHOCYTES ABSOLUTE AUTO 1.54 K/mm3 (0.84-5.20); LYMPHOCYTES PERCENT AUTO 9 % (21-46); MONOCYTES ABSOLUTE AUTO 1.53 K/mm3 (0.16-1.47); MONOCYTES PERCENT AUTO 9 % (4-13); Mean Corpuscular HGB 22.9 pg (26.0-34.0); Mean Corpuscular Volume 74 fL (80-100); Mean Platelet Volume 9.2 fL (9.1-12.4); NEUTROPHILS ABSOLUTE AUTO 13.11 K/mm3 (1.96-9.15); NEUTROPHILS PERCENT AUTO 78 % (41-73); NRBC ABSOLUTE 0.03 K/mm3 (0.00-0.02); NRBC Auto 0.2 /100 WBC (0.0-0.2); Platelet Count 518 K/mm3 (150-400); RDW Coefficient Variation 19.3 % (11.7-14.2); RDW Standard Deviation 50.1 fL (35.1-46.3); Red Blood Cell Count 4.76 M/mm3 (4.30-5.90); White Blood Cell Count 16.76 K/mm3 (4.00-11.30)
[2018-12-31 05:39] LABS: Bun/Creatinine Ratio 34.6 (12.0-20.0); Calcium, Blood 8.3 mg/dL (8.5-10.1); Creatinine, Blood 3.24 mg/dL (0.60-1.20); Potassium, Blood 4.8 mmol/L (3.5-5.5)
--- NOTE | 2018-12-31 07:26 | NUR ---
SHIFT SUMMARY PT IS A 73 Y/O MALE, ADMITTED FOR PYELONEPHRITIS. THE PT REPORTED PAIN IN HIS ABD AND BACK, AND WAS MEDICATED X 3 WITH PRN FENTANYL. HE DENIED ANY NAUSEA OR SOB. PT SLEPT OFF AND ON THROUGH THE NIGHT. HIS SPEECH CAN BE DIFFICULT TO UNDERSTAND, AND PT WILL ONLY COMMUNICATE WITH ONE OR TWO WORDS, BUT IS ABLE TO ANSWER YES OR NO QUESTIONS APPROPRIATELY. HE HAS A RECENTLY PLACED NEPHROSTOMY AND AN OLDER UROSTOMY THAT DRAINED WELL THROUGH THE NIGHT. NO OTHER ACUTE CHANGES IN PT CONDITION NOTED. WILL CONTINUE TO MONITOR AND TREAT PER EMAR.
--- NOTE | 2018-12-31 18:45 | NUR ---
PATIENT A/O TO SELF AND FAMILY. HX OF CVA WITH APHASIA MAKING IT DIFFICULT TO UNDERSTAND AT TIMES. VSS THIS SHIFT. LR AT 75ML/HR INFUSING IN 20G IV TO R AC. POOR APPETITE THIS SHIFT, REPORTS MOUTH/THROAT PAIN WITH THRUSH NOTED. STARTED IN MYCELEX THIS SHIFT. UROSTOMY CHANGED TODAY. FENTANYL GIVEN BEFORE REPOSITIONING DUE TO SEVERE BACK PAIN. POSSIBLE D/C TOMORROW.
[2019-01-01 05:21] LABS: BASOPHILS ABSOLUTE AUTO 0.02 K/mm3 (0.00-0.23); BASOPHILS PERCENT AUTO 0 % (0-2); EOSINOPHILS ABSOLUTE AUTO 0.26 K/mm3 (0.00-0.68); EOSINOPHILS PERCENT AUTO 2 % (0-6); Hematocrit 34.1 % (37.0-53.0); Hemoglobin 10.7 g/dL (13.5-17.5); IMMATURE GRAN PERCENT AUTO 2 % (0-1); LYMPHOCYTES ABSOLUTE AUTO 1.77 K/mm3 (0.84-5.20); LYMPHOCYTES PERCENT AUTO 12 % (21-46); MONOCYTES ABSOLUTE AUTO 1.25 K/mm3 (0.16-1.47); MONOCYTES PERCENT AUTO 9 % (4-13); Mean Corpuscular HGB 22.7 pg (26.0-34.0); Mean Corpuscular HGB Conc 31.4 g/dL (31.5-36.5); Mean Corpuscular Volume 72 fL (80-100); Mean Platelet Volume 8.9 fL (9.1-12.4); NEUTROPHILS ABSOLUTE AUTO 11.17 K/mm3 (1.96-9.15); NEUTROPHILS PERCENT AUTO 76 % (41-73); NRBC ABSOLUTE 0.03 K/mm3 (0.00-0.02); NRBC Auto 0.2 /100 WBC (0.0-0.2); Platelet Count 482 K/mm3 (150-400); RDW Coefficient Variation 19.2 % (11.7-14.2); RDW Standard Deviation 47.8 fL (35.1-46.3); Red Blood Cell Count 4.72 M/mm3 (4.30-5.90); White Blood Cell Count 14.77 K/mm3 (4.00-11.30)
[2019-01-01 05:44] LABS: Bun/Creatinine Ratio 35.5 (12.0-20.0); Calcium, Blood 8.3 mg/dL (8.5-10.1); Creatinine, Blood 2.93 mg/dL (0.60-1.20); Potassium, Blood 4.3 mmol/L (3.5-5.5)
[2019-01-02 08:49] LABS: Bun/Creatinine Ratio 40.4 (12.0-20.0); Creatinine, Blood 2.67 mg/dL (0.60-1.20); Potassium, Blood 4.7 mmol/L (3.5-5.5)
[2019-01-02] MEDS ORDERED: AMLO5 PO (11:34)
[2019-01-02] MEDS ORDERED: CEPH500 PO (11:35)
[2019-01-02] MEDS ORDERED: Bactrim 400-801 EACH PO (11:36)
--- NOTE | 2019-01-02 18:58 | NUR ---
SHIFT SUMMARY GERMÁN HAS BEEN CONFUSED TODAY. APHASIC, UNABLE TO FOLLOW COMMANDS, JUST REPEATS THE SAME WORDS OVER AND OVER. FAMILY CAME TO VISIT. PT CAME, BUT PT REFUSED, THEY REC HOME HEALTH PHYSICAL THERAPIST CARE. GOT SUOBOXONE FOR PAIN, BUT PT SWALLOWD INSTEAD OF LETTING DISSOLVE UNDER TONGUE DESPITE PROMPTING. DR AVILES AWARE. NEPHROSTOMY AND UROSTOMY DRAINING WELL. COMPLAINED OF BACK PAIN, GIVEN NORCO AND SUBOXONE, THEN RESTED COMFORTABLY. REFUSED MOST THINGS. WCTM
[2019-01-03 05:14] LABS: BASOPHILS ABSOLUTE AUTO 0.02 K/mm3 (0.00-0.23); BASOPHILS PERCENT AUTO 0 % (0-2); EOSINOPHILS ABSOLUTE AUTO 0.24 K/mm3 (0.00-0.68); EOSINOPHILS PERCENT AUTO 2 % (0-6); Hematocrit 34.2 % (37.0-53.0); Hemoglobin 10.6 g/dL (13.5-17.5); IMMATURE GRAN ABSOLUTE AUTO 0.16 K/mm3 (0.00-0.10); IMMATURE GRAN PERCENT AUTO 1 % (0-1); LYMPHOCYTES ABSOLUTE AUTO 1.54 K/mm3 (0.84-5.20); LYMPHOCYTES PERCENT AUTO 12 % (21-46); MONOCYTES ABSOLUTE AUTO 1.31 K/mm3 (0.16-1.47); MONOCYTES PERCENT AUTO 10 % (4-13); Mean Corpuscular HGB 22.6 pg (26.0-34.0); Mean Corpuscular Volume 73 fL (80-100); Mean Platelet Volume 9.5 fL (9.1-12.4); NEUTROPHILS ABSOLUTE AUTO 9.97 K/mm3 (1.96-9.15); NEUTROPHILS PERCENT AUTO 75 % (41-73); NRBC ABSOLUTE 0.02 K/mm3 (0.00-0.02); NRBC Auto 0.2 /100 WBC (0.0-0.2); Platelet Count 456 K/mm3 (150-400); RDW Coefficient Variation 19.6 % (11.7-14.2); RDW Standard Deviation 48.2 fL (35.1-46.3); Red Blood Cell Count 4.68 M/mm3 (4.30-5.90); White Blood Cell Count 13.24 K/mm3 (4.00-11.30)
--- NOTE | 2019-01-03 05:24 | NUR ---
VSS, AFEBRILE, A/O, PT REPEAS "no!" EVERYTIME HE SEES CAREGIVERS NEAR HIS BED. HOWEVER, HE WILL TOLERATE BEING TURNED Q2 HOURS, MEDICATED AND LABS DRAWN PER EDUARDOER. PT IS REPORTED TO HAVE A VERY POOR APPETITE. SLEPT WELL OVERNOC.
[2019-01-03 05:32] LABS: Bun/Creatinine Ratio 40.2 (12.0-20.0); Calcium, Blood 8.3 mg/dL (8.5-10.1); Creatinine, Blood 2.71 mg/dL (0.60-1.20); Potassium, Blood 5.1 mmol/L (3.5-5.5)
--- NOTE | 2019-01-03 11:10 | NUR ---
PER OK TO TALK TO PATIENT BROTHER, VIVIAN, WHO LEFT MESSAGE TO CALL W/UPDATE. ATTEMPT TO CALL AND AFTER RINGING STOPPED ONLY HEARD STATIC. NOONE ANSWERED PHONE AND COULD NOT LEAVE MESSAGE.
--- NOTE | 2019-01-03 12:00 | NUR ---
PATIENT ALERT TO SELF AND FAMILY. SAYS "NO" TO MOST EVERYTHING. UNABLE TO TOLERATE LYING FLAT, SO CT CANCELLED PER . IV PLACED AND WRAPPED W/FLUID RUNNING. DISTRIBUTION TECHNICIAN HAS BEEN IN TO SEE. WILL CONTINUE TO MONITOR.
--- NOTE | 2019-01-03 18:37 | NUR ---
ALERT TO SELF AND FAMILY. UROSTOMY DRAINING CLEAR YELLOW WITH NEPHROSTOMY DRAINING SEDIMENT. REFUSES TO GET UP. YELLS WHEN TOUCHED, EVEN IF BED IS TOUCHED. REFUSES FOOD, BUT WILL DRINK COLD WATER. BED IN LOW POSITION. WILL CONTINUE TO MONITOR.
--- NOTE | 2019-01-04 05:48 | NUR ---
VSS, AFEBRILE, A/O TO SELF, PT REPEATS "NO NO NO" WHENEVER HE IS APPROACHED BY CAREGIVERS. PT HAD MULTIPLE BM'S OVERNOC AND HE ANNOUNCED EACH ONE WITH "NO NO, OH NO" REPEATEDLY. HOWEVER, PT CAN SPEAK ARTICULATELY AND HAS EXPRESSED HIMSELF CLEARLY MULTIPLE TIMES DURING THIS SHIFT. PT STATES; "I'M VERY SORRY BUT I NEED TO POOP". PT'S URINE AND OUTPUT FROM THE NEPHROSTOMY TUBE IS DARK RED. WILL REPORT THESE THINGS TO THE ON-COMING SHIFT.
--- NOTE | 2019-01-04 10:56 | NUR ---
0740 THIS AM IT WAS NOTICED THAT THE PT WAS WET FROM HIS UROSTOMY APPLIANEC THE STRAP ATTATCHING THE APPLIANCE WAS COMPLETLY WET, WITH ASSISTANCE FROM BOTH DAY SHIFT CHARGE NURSES, THE APPLIANCE WAS CHANGED THE PT WAS CLEANED, BED LINENS WERE CHANGED THE PT WAS SOMEWHAT IRRITATED WITH THE STAFF FOR CHANGING THE APPLIANCE, THE PT'S COCCYX APPEARD TO BE REDDEND AND A MEPILEX WAS APPLIED FOR PREVENTATIVE CARE
--- NOTE | 2019-01-04 17:14 | NUR ---
PT A/OX2, COOPERATIVE, THE PT IS UP WITH 1-2 PERSON ASSIST USEING THE GAIT BELT, THIS AM THE PTS UROSTOMY APPLIANCE WAS CHANGED DUE TO LEAKAGE, THE AREA STILL CONTINUES TO HAVE DRAINAGE AND IS REINFORCED WITH EXUDRY, AREA NEEDS CHECKED FREQUANTLY, THE PT WAS ASSISTED UP THIS AM TO THE CHAIR, AND STAYED IN THE CHAIR UNTIL THIS AFTERNOON, MULTIPLE FAMILY AT THE BEDSIDE THE FITNESS AND WELLNESS INSTRUCTOR SPOKE WITH THEM TODAY TO GIVE AN UPDATE ON THE PLAN OF CARE AFTER DISCHARGE, DR. ANGEL ALSO SPOKE WITH THE PT'S FAMILY PER THIER REQUEST, CALL LIGHT IN REACH BED ALARM ON, BED IN THE LOW POSITION
--- NOTE | 2019-01-05 04:45 | NUR ---
VSS, AFEBRILE, A/O, MORE LUCID OVER NOC, WATCHING TELEVISION WITH INTEREST, USING ENTIRE SENTENCES TO COMMUNICATE, TURNS SELF WHEN ASKED TO COOPERATE W/CARES. UROSTOMY BAG IS LEAKING, SEVERAL ATTEMPT HAVE BEEN MADE TO CORRECT THE SITUATION W/OUT SUCCESS. PT INCONT OF STOOL OVERNOC, MEPLEX ON COCCYX CHANGED DUE TO CONTAMINATION. NEPHROSTOMY BAG DRAINING PINKISH FLUID, TAKES MEDS CRUSHED IN APPLESAUCE, NO C/O PAIN OVERNOC. PLEASANT AND EXPRESSES GRATITUDE.
[2019-01-05 05:31] LABS: BASOPHILS ABSOLUTE AUTO 0.03 K/mm3 (0.00-0.23); BASOPHILS PERCENT AUTO 0 % (0-2); EOSINOPHILS ABSOLUTE AUTO 0.26 K/mm3 (0.00-0.68); EOSINOPHILS PERCENT AUTO 2 % (0-6); Hematocrit 34.3 % (37.0-53.0); Hemoglobin 10.6 g/dL (13.5-17.5); IMMATURE GRAN ABSOLUTE AUTO 0.09 K/mm3 (0.00-0.10); IMMATURE GRAN PERCENT AUTO 1 % (0-1); LYMPHOCYTES ABSOLUTE AUTO 1.78 K/mm3 (0.84-5.20); LYMPHOCYTES PERCENT AUTO 13 % (21-46); MONOCYTES ABSOLUTE AUTO 1.44 K/mm3 (0.16-1.47); MONOCYTES PERCENT AUTO 10 % (4-13); Mean Corpuscular HGB 22.7 pg (26.0-34.0); Mean Corpuscular HGB Conc 30.9 g/dL (31.5-36.5); Mean Corpuscular Volume 74 fL (80-100); Mean Platelet Volume 9.4 fL (9.1-12.4); NEUTROPHILS ABSOLUTE AUTO 10.63 K/mm3 (1.96-9.15); NEUTROPHILS PERCENT AUTO 75 % (41-73); Platelet Count 425 K/mm3 (150-400); RDW Coefficient Variation 19.9 % (11.7-14.2); RDW Standard Deviation 49.1 fL (35.1-46.3); Red Blood Cell Count 4.66 M/mm3 (4.30-5.90); White Blood Cell Count 14.23 K/mm3 (4.00-11.30)
[2019-01-05 06:05] LABS: Albumin, Blood 1.5 g/dL (3.4-5.0); Anion Gap 11 mmol/L (6-16); Blood Urea Nitrogen 93 mg/dL (8-24); Bun/Creatinine Ratio 36.8 (12.0-20.0); CO2, Blood 15 mmol/L (21-32); Calcium, Blood 8.4 mg/dL (8.5-10.1); Chloride, Blood 116 mmol/L (98-108); Creatinine, Blood 2.53 mg/dL (0.60-1.20); Glomerular Filtration Rate 27 (60-); Glucose, Blood 91 mg/dL (70-99); Phosphorus, Blood 3.7 mg/dL (2.5-4.9); Potassium, Blood 4.9 mmol/L (3.5-5.5); Sodium, Blood 142 mmol/L (136-145)
--- NOTE | 2019-01-05 16:28 | NUR ---
PT IS A/OX2, PLEASANT AND COOPERATIVE, THE PT IS UP WITH 2 PERSON ASSIST USEING THE GAIT BELT, THE PT WAS UP INTO THE CHAIR FOR BREAKFAST THIS AM, THE PTS UROSTMY WAS RE INFORCED THIS AM DUE TO LEAKAGE AND SO FAR HAS STAYED DRY, THE PTS NEPHROSTMY HAS MORE OUTPUT TODAY COMPARED TO YESTERDAY AND IS CLOUDY AND PINK INCOLOR, PT APPETITE IS POOR HE IS REFUSING FOOD, HOWEVER, IS DRINKING HIE ENSURE, CALL LIGHT IN REACH BED ALARM ON, FAMILY WAS WITH THE PT FOR MOST OF THE DAY
[2019-01-06 05:15] LABS: Hematocrit 33.6 % (37.0-53.0); Hemoglobin 10.4 g/dL (13.5-17.5)
--- NOTE | 2019-01-06 05:21 | NUR ---
VSS, AFEBRILE, A/O X 4, MUCH MORE ALERT, ORIENTED AND TALKATIVE. SOMEWHAT FORGETFUL BUT MUCH BETTER ABOUT ARTICULATING HIS NEEDS/WANTS. NOW PARTICIPATING IN HIS CARE. THIS IS A SIGNIFICANT IMPROVEMENT IN MENTATION. BRIGHT AFFECT, CHATTY AND PLEASANT.
[2019-01-06 06:33] LABS: Magnesium, Blood 1.6 mg/dL (1.6-2.4)
[2019-01-06 06:36] LABS: Albumin, Blood 1.6 g/dL (3.4-5.0); Anion Gap 7 mmol/L (6-16); Blood Urea Nitrogen 81 mg/dL (8-24); CO2, Blood 23 mmol/L (21-32); Calcium, Blood 8.1 mg/dL (8.5-10.1); Chloride, Blood 111 mmol/L (98-108); Creatinine, Blood 2.13 mg/dL (0.60-1.20); Glomerular Filtration Rate 33 (60-); Glucose, Blood 121 mg/dL (70-99); Phosphorus, Blood 2.6 mg/dL (2.5-4.9); Potassium, Blood 4.5 mmol/L (3.5-5.5); Sodium, Blood 141 mmol/L (136-145)
--- NOTE | 2019-01-06 19:50 | NUR ---
PT A/OX3 TODAY, PLEASANT AND COOPERATIVE, THE PT WAS MUCH MORE ALERT AND TALKATIVE TOFDAY COMPARED TO THE LAST COOUPLE OF DAY, THE PT WAS UP INTO THE CHAIR THIS AM, THE PT STATED THAT HE NEEDED AND WANTED PHYSICAL THERAPY, HOWEVER, WHEN THE THERAPIST CAME TO WORK WITH THE PT HE DECLINED, THE PT APPEARED TO BE BREATHING EASILY ON RA, THE PT ATE LITTLE HOWEVER WOULD DRINK THE ENSURE THAT HE WAS GIVEN, UROSTOMY CONTINUES TO LEAK, THE PTS STATED THAT THE PTS APPLIANCE'S FROM HOME ARE GONE, A MESSAGE WAS LEFT FOR THE PT ADVOCATE, CALL LIGHT IN REACH
--- NOTE | 2019-01-07 03:58 | NUR ---
SHIFT SUMMARY PATIENT HAD NO ACUTE CHANGES OBSERVED THIS SHIFT. AXOX 3 AND AWAKE AT START OF SHIFT. 1-2 PERSON ASSIST TO BSC. PATIENT REPORTS HE DESIRES TO WORK WITH PT IN AM. VSS/AFEBRILE. PIV REMAINS INTACT. SODIUM BICARB INFUSING AT 50 mL/HR. UROSTOMY CONTINUES TO LEAK AND PATIENT REPORTS HIS WILL BRING IN UROSTOMY DEVICE. TAKES MEDICATION WHOLE A COUPLE AT A TIME. SLEEPS WITH EYES OPEN. DENIES PAIN, SOB, AND N/V. CALL LIGHT IN REACH. BED IN LOWEST POSITION. WILL CONTINUE TO MONITOR UNTIL DAY SHIFT NURSE ASSUMES CARE.
[2019-01-07 06:02] LABS: BASOPHILS ABSOLUTE AUTO 0.04 K/mm3 (0.00-0.23); BASOPHILS PERCENT AUTO 0 % (0-2); EOSINOPHILS PERCENT AUTO 2 % (0-6); Hematocrit 29.8 % (37.0-53.0); Hemoglobin 9.3 g/dL (13.5-17.5); IMMATURE GRAN ABSOLUTE AUTO 0.08 K/mm3 (0.00-0.10); IMMATURE GRAN PERCENT AUTO 1 % (0-1); LYMPHOCYTES ABSOLUTE AUTO 1.48 K/mm3 (0.84-5.20); LYMPHOCYTES PERCENT AUTO 13 % (21-46); MONOCYTES ABSOLUTE AUTO 1.29 K/mm3 (0.16-1.47); MONOCYTES PERCENT AUTO 11 % (4-13); Mean Corpuscular HGB 22.6 pg (26.0-34.0); Mean Corpuscular HGB Conc 31.2 g/dL (31.5-36.5); Mean Corpuscular Volume 73 fL (80-100); Mean Platelet Volume 9.6 fL (9.1-12.4); NEUTROPHILS ABSOLUTE AUTO 8.34 K/mm3 (1.96-9.15); NEUTROPHILS PERCENT AUTO 73 % (41-73); Platelet Count 352 K/mm3 (150-400); RDW Coefficient Variation 19.2 % (11.7-14.2); RDW Standard Deviation 45.7 fL (35.1-46.3); Red Blood Cell Count 4.11 M/mm3 (4.30-5.90); White Blood Cell Count 11.43 K/mm3 (4.00-11.30)
[2019-01-07 06:09] LABS: Albumin, Blood 1.4 g/dL (3.4-5.0); Anion Gap 4 mmol/L (6-16); Blood Urea Nitrogen 66 mg/dL (8-24); Bun/Creatinine Ratio 35.1 (12.0-20.0); CO2, Blood 37 mmol/L (21-32); Calcium, Blood 7.3 mg/dL (8.5-10.1); Chloride, Blood 97 mmol/L (98-108); Creatinine, Blood 1.88 mg/dL (0.60-1.20); Glomerular Filtration Rate 38 (60-); Glucose, Blood 376 mg/dL (70-99); Magnesium, Blood 1.5 mg/dL (1.6-2.4); Phosphorus, Blood 2.3 mg/dL (2.5-4.9); Potassium, Blood 4.2 mmol/L (3.5-5.5); Sodium, Blood 138 mmol/L (136-145)
[2019-01-07 18:42] LABS: PO2 Arterial 75.1 mmHg (80-100); pH Blood Arterial 7.48 (7.35-7.45)
--- NOTE | 2019-01-07 19:36 | NUR ---
SHIFT SUMMARY PATIENT UP FOR BREAKFAST BUT STATED HE WAS TOO TIRED TO GET UP FOR LUNCH. PATIENT'S LUNGS BECAME COURSE AFTER LUNCH. CALL TO DR. TERAN, ORDERS GIVEN TO DC FLUIDS AND GIVE BUMEX IV. PATIENT STATED HE WAS FEELING BETTER. LATER IN THE AFTERNOON PATIENT STATED HE WAS NOT FEELING WELL. HIS OXYGEN SATURATION WAS 88-90% ON ROOM AIR, HE LOOKED PALE AND RENAE, HE CONTINUED TO SHOW SIGNS OF FLUID OVERLOAD, AND HE WAS LETHARGIC. OXYGEN VIA NC PLACED AT 2 LITERS, SATURATION RETURNED TO 95%. CALL TO DR. ANGEL, ORDERS GIVEN FOR STAT XRAY, ABG, IV BUMEX, AND TELE. PATIENT BECAME MORE ALERT DURING THIS TIME AND STATED HE WAS FEELING BETTER. REPORT GIVEN TO CARLOTA DUNCAN.
--- NOTE | 2019-01-08 04:47 | NUR ---
SHIFT SUMMARY PT HAS NOT SLEPT THIS SHIFT. PT DENIES ANY SOB. PT CONTINUES TO HAVE NAUSEA WITH SOME VOMITING. PT ABD IS BECOMING MORE DISTENDED AND UNCOMFORTABLE. REPOSITIONING HELPS WITH ABD DISCOMFORT. PT HAS A WET COUGH THAT IS WEAK AND IS HAVING DIFFICULTY CLEARING. PT SPUTUM IS CLEAR, THICK AND STRINGY WHEN ABLE TO GET IT UP. PT OSTOMIES ARE DRAINING WELL WITH NO NOTED LEAKAGE OF UROSTOMY. PT CURRENTLY WATCHING TV AND BREATHING EASY. CALL LIGHT IN REACH.
[2019-01-08 05:08] LABS: Hematocrit 34.4 % (37.0-53.0); Hemoglobin 10.6 g/dL (13.5-17.5)
[2019-01-08 05:23] LABS: Albumin, Blood 1.7 g/dL (3.4-5.0); Anion Gap 8 mmol/L (6-16); Blood Urea Nitrogen 70 mg/dL (8-24); Bun/Creatinine Ratio 29.9 (12.0-20.0); CO2, Blood 30 mmol/L (21-32); Calcium, Blood 8.4 mg/dL (8.5-10.1); Chloride, Blood 103 mmol/L (98-108); Creatinine, Blood 2.34 mg/dL (0.60-1.20); Glomerular Filtration Rate 29 (60-); Glucose, Blood 122 mg/dL (70-99); Magnesium, Blood 1.8 mg/dL (1.6-2.4); Phosphorus, Blood 3.9 mg/dL (2.5-4.9); Potassium, Blood 5.1 mmol/L (3.5-5.5); Sodium, Blood 141 mmol/L (136-145)
[2019-01-08 08:09] LABS: BASOPHILS ABSOLUTE AUTO 0.02 K/mm3 (0.00-0.23); BASOPHILS PERCENT AUTO 0 % (0-2); EOSINOPHILS PERCENT AUTO 0 % (0-6); Hematocrit 34.8 % (37.0-53.0); Hemoglobin 10.5 g/dL (13.5-17.5); IMMATURE GRAN ABSOLUTE AUTO 0.06 K/mm3 (0.00-0.10); IMMATURE GRAN PERCENT AUTO 0 % (0-1); LYMPHOCYTES ABSOLUTE AUTO 0.56 K/mm3 (0.84-5.20); LYMPHOCYTES PERCENT AUTO 4 % (21-46); MONOCYTES ABSOLUTE AUTO 0.69 K/mm3 (0.16-1.47); MONOCYTES PERCENT AUTO 5 % (4-13); Mean Corpuscular HGB 22.8 pg (26.0-34.0); Mean Corpuscular HGB Conc 30.2 g/dL (31.5-36.5); Mean Platelet Volume 10.1 fL (9.1-12.4); NEUTROPHILS ABSOLUTE AUTO 13.97 K/mm3 (1.96-9.15); NEUTROPHILS PERCENT AUTO 91 % (41-73); Platelet Count 410 K/mm3 (150-400); RDW Coefficient Variation 19.8 % (11.7-14.2); RDW Standard Deviation 49.3 fL (35.1-46.3); Red Blood Cell Count 4.61 M/mm3 (4.30-5.90)
[2019-01-08 08:19] LABS: Mean Corpuscular Volume 76 fL (80-100)
--- NOTE | 2019-01-08 12:22 | NUR ---
PT TO IMAGING VIA BRI
--- NOTE | 2019-01-08 17:35 | NUR ---
UROSTOMY OUTPUT THIS MORNING WAS CLEAR YELLOW. NOW UROSTOMY OUTPUT IS MILKY ZHANG.
--- NOTE | 2019-01-08 19:50 | NUR ---
SHIFT SUMMARY: A&OX3. PLEASANT AND COOPERATIVE. HE IS HARD OF HEARING AND SLOW TO RESPOND. FORGETFUL AT TIMES AND HAS DIFFICULTY FOLLOWING MULTISTEP CONVERSATIONS. HE REFUSED OUT OF BED T/O DAY. EDUCATED ON IMPORTANCE OF MOVING AND GETTING OUT OF BED. HE STS HE WILL WORK WITH P/T TOMORROW. NEPHROSTOMY OUTPUT IS MILKY/ZHANG, PATENT AND DRAINING. DYSPNEA WITH ANY EXERTION, 2L O2 VIA NC TO MAINTAIN SATS >90%. HE RCD A BREATHING TREATMENT THIS AFTERNOON. APPETITE IS VERY POOR. NEEDS ENCOURAGMENT TO DRINK SUPPLEMENTS. PT TO BE NPO AFTER MN FOR AN ABCESS DRAINAGE TOMORROW. REPORT GIVEN TO NEXT RN.
--- NOTE | 2019-01-09 03:53 | NUR ---
SHIFT SUMMARY PATIENT HAD NO ACUTE CHANGES OBSERVED THIS SHIFT. AXOX 3 AND TWO PERSON MAX ASSIST TO BSC. NPO AFTER MIDNIGHT. PIV REMAINS INTACT. IV ABX INFUSED. SOFTWARE DEVELOPMENT MANAGER REPORTS NSR/PVC AT 86. ON 2L O2 NC. NEPHROSTOMY PATENT AND DRAINING MILKY COLOR. SLEEPS WITH EYES OPEN. DENIES PAIN, SOB, AND N.V. VSS/AFEBRILE. CALL LIGHT IN REACH. BED IN LOWEST POSITION. WILL CONTINUE TO MONITOR UNTIL DAY SHIFT NURSE ASSUMES CARE.
[2019-01-09 04:59] LABS: BASOPHILS ABSOLUTE AUTO 0.06 K/mm3 (0.00-0.23); BASOPHILS PERCENT AUTO 0 % (0-2); EOSINOPHILS ABSOLUTE AUTO 0.25 K/mm3 (0.00-0.68); EOSINOPHILS PERCENT AUTO 1 % (0-6); Hematocrit 31.2 % (37.0-53.0); Hemoglobin 9.5 g/dL (13.5-17.5); IMMATURE GRAN ABSOLUTE AUTO 0.11 K/mm3 (0.00-0.10); IMMATURE GRAN PERCENT AUTO 1 % (0-1); LYMPHOCYTES ABSOLUTE AUTO 1.05 K/mm3 (0.84-5.20); LYMPHOCYTES PERCENT AUTO 6 % (21-46); MONOCYTES ABSOLUTE AUTO 1.48 K/mm3 (0.16-1.47); MONOCYTES PERCENT AUTO 8 % (4-13); Mean Corpuscular HGB 23.2 pg (26.0-34.0); Mean Corpuscular HGB Conc 30.4 g/dL (31.5-36.5); Mean Corpuscular Volume 76 fL (80-100); Mean Platelet Volume 9.5 fL (9.1-12.4); NEUTROPHILS ABSOLUTE AUTO 15.11 K/mm3 (1.96-9.15); NEUTROPHILS PERCENT AUTO 84 % (41-73); Platelet Count 412 K/mm3 (150-400); RDW Coefficient Variation 19.5 % (11.7-14.2); RDW Standard Deviation 50.7 fL (35.1-46.3); Red Blood Cell Count 4.09 M/mm3 (4.30-5.90); White Blood Cell Count 18.06 K/mm3 (4.00-11.30)
[2019-01-09 05:15] LABS: International Normalized Ratio 1.17; Prothrombin Time Results 12.2 Sec (9.7-11.5)
[2019-01-09 05:20] LABS: Albumin, Blood 1.6 g/dL (3.4-5.0); Anion Gap 7 mmol/L (6-16); Blood Urea Nitrogen 68 mg/dL (8-24); Bun/Creatinine Ratio 29.4 (12.0-20.0); CO2, Blood 27 mmol/L (21-32); Calcium, Blood 8.2 mg/dL (8.5-10.1); Chloride, Blood 103 mmol/L (98-108); Creatinine, Blood 2.31 mg/dL (0.60-1.20); Glomerular Filtration Rate 30 (60-); Glucose, Blood 97 mg/dL (70-99); Magnesium, Blood 1.7 mg/dL (1.6-2.4); Phosphorus, Blood 3.5 mg/dL (2.5-4.9); Potassium, Blood 4.6 mmol/L (3.5-5.5); Sodium, Blood 137 mmol/L (136-145)
--- NOTE | 2019-01-09 18:06 | NUR ---
PATIENT WENT DOWN FOR CT GUIDED DRAINAGE OF R RENAL ABCESS. NEPHROSTOMY ON R AND UROSTOMY WITH BLOODY DRAINAGE. PATIENT MEDICATED POST PRECEDURE WITH FENTANYL WITH STATED RELIEF. PATIENT IN PRECEDURE WHEN PT CAME TO WORK WITH HIM SO PATIENT DID NOT GET UP TODAY. GROIN AND BUTTOCKS RED AND EXCORIATED, NUTRISHIELD APPLIED. ASSISTING WITH REPOSITIONING Q2 HOURS. VSS THIS SHIFT. RA TO 2LO2 TO MAINTAIN SATS. PATIENT CALLS APPROPRIATELY FOR ASSISTANCE. TOLERATING REGULAR DIET. PLAN IS TO D/C HOME WITH WITH HOME HEALTH.
--- NOTE | 2019-01-10 04:59 | NUR ---
PT SLEPT WELL OVERNOC, MORE LUCID WHEN COMMUNICATING W/STAFF, NO COMPLAINTS. PT'S NEPHROSTOMY AND UROSTOMY CONTINUE TO DRAIN SEROSANGUINOUS FLUID. FEW CLOTS NOTED THIS SHIFT. WILL REPORT TO ON-COMING SHIFT
[2019-01-10 05:15] LABS: BASOPHILS ABSOLUTE AUTO 0.05 K/mm3 (0.00-0.23); BASOPHILS PERCENT AUTO 0 % (0-2); EOSINOPHILS PERCENT AUTO 0 % (0-6); Hematocrit 33.7 % (37.0-53.0); Hemoglobin 9.9 g/dL (13.5-17.5); IMMATURE GRAN ABSOLUTE AUTO 0.18 K/mm3 (0.00-0.10); IMMATURE GRAN PERCENT AUTO 1 % (0-1); LYMPHOCYTES ABSOLUTE AUTO 0.89 K/mm3 (0.84-5.20); LYMPHOCYTES PERCENT AUTO 4 % (21-46); MONOCYTES ABSOLUTE AUTO 1.17 K/mm3 (0.16-1.47); MONOCYTES PERCENT AUTO 5 % (4-13); Mean Corpuscular HGB 22.7 pg (26.0-34.0); Mean Corpuscular HGB Conc 29.4 g/dL (31.5-36.5); Mean Corpuscular Volume 77 fL (80-100); Mean Platelet Volume 9.9 fL (9.1-12.4); NEUTROPHILS ABSOLUTE AUTO 22.89 K/mm3 (1.96-9.15); NEUTROPHILS PERCENT AUTO 91 % (41-73); Platelet Count 442 K/mm3 (150-400); RDW Coefficient Variation 19.6 % (11.7-14.2); RDW Standard Deviation 52.5 fL (35.1-46.3); Red Blood Cell Count 4.37 M/mm3 (4.30-5.90); White Blood Cell Count 25.18 K/mm3 (4.00-11.30)
[2019-01-10 05:33] LABS: Albumin, Blood 1.6 g/dL (3.4-5.0); Anion Gap 6 mmol/L (6-16); Blood Urea Nitrogen 70 mg/dL (8-24); Bun/Creatinine Ratio 24.6 (12.0-20.0); CO2, Blood 30 mmol/L (21-32); Calcium, Blood 8.3 mg/dL (8.5-10.1); Chloride, Blood 102 mmol/L (98-108); Creatinine, Blood 2.85 mg/dL (0.60-1.20); Glomerular Filtration Rate 23 (60-); Glucose, Blood 122 mg/dL (70-99); Magnesium, Blood 1.7 mg/dL (1.6-2.4); Phosphorus, Blood 4.7 mg/dL (2.5-4.9); Potassium, Blood 5.5 mmol/L (3.5-5.5); Sodium, Blood 138 mmol/L (136-145)
--- NOTE | 2019-01-10 16:19 | NUR ---
SHIFT SUMMARY PT HAD COMPLAINTS OF ABD PAIN AND NAUSEA AT SHIFT START, ADMINISTERED ZOFRAN & TYLONEL THEN AMBULATED. PT STATED THAT HE WAS ABLE TO PASS "A LOT OF GAS" AND THE PAIN WAS MUCH BETTER. PT STAYED UP TO RECLINER FOR SEVERAL HOURS UNTIL WORKING WITH PT AND HAS BEEN BEDRESTING SINCE, PT APPEARS TO BE SLEEPING AT THIS TIME, WILL CONT TO MONITOR UNTIL REPORT GIVEN TO CARLOTA RN.
--- NOTE | 2019-01-11 05:08 | NUR ---
VSS, AFEBRILE, A/O, NEPHROSTOMY AND UROSTOMY TUBES ARE DRAINING SQL DEVELOPER RED FLUID THAN YESTERDAY. PT TOLERATING IV ABX W/OUT ADVERSE EFFECTS. PT REPORTS BEING MOTIVATED TO REGAIN HIS STRENGTH. PT ALSO REPORTS HEARTBURN DURING THE NIGHT AND HAS REQUESTED THAT THE PCP GIVE HIM A PRN ANTACID, IF POSSIBLE. PT REMAINS IN GOOD SPIRITS. WILL REPORT TO ON-COMING SHIFT.
[2019-01-11 05:12] LABS: BASOPHILS ABSOLUTE AUTO 0.03 K/mm3 (0.00-0.23); BASOPHILS PERCENT AUTO 0 % (0-2); EOSINOPHILS ABSOLUTE AUTO 0.14 K/mm3 (0.00-0.68); EOSINOPHILS PERCENT AUTO 1 % (0-6); Hematocrit 28.9 % (37.0-53.0); Hemoglobin 8.7 g/dL (13.5-17.5); IMMATURE GRAN ABSOLUTE AUTO 0.19 K/mm3 (0.00-0.10); IMMATURE GRAN PERCENT AUTO 1 % (0-1); LYMPHOCYTES ABSOLUTE AUTO 1.09 K/mm3 (0.84-5.20); LYMPHOCYTES PERCENT AUTO 6 % (21-46); MONOCYTES ABSOLUTE AUTO 1.15 K/mm3 (0.16-1.47); MONOCYTES PERCENT AUTO 7 % (4-13); Mean Corpuscular HGB 22.8 pg (26.0-34.0); Mean Corpuscular HGB Conc 30.1 g/dL (31.5-36.5); Mean Corpuscular Volume 76 fL (80-100); Mean Platelet Volume 9.8 fL (9.1-12.4); NEUTROPHILS ABSOLUTE AUTO 14.39 K/mm3 (1.96-9.15); NEUTROPHILS PERCENT AUTO 85 % (41-73); Platelet Count 392 K/mm3 (150-400); RDW Coefficient Variation 19.5 % (11.7-14.2); RDW Standard Deviation 51.2 fL (35.1-46.3); Red Blood Cell Count 3.81 M/mm3 (4.30-5.90); White Blood Cell Count 16.99 K/mm3 (4.00-11.30)
[2019-01-11 05:56] LABS: Alanine Aminotransfer (ALT/SGP 51 U/L (12-78); Albumin, Blood 1.5 g/dL (3.4-5.0); Anion Gap 11 mmol/L (6-16); Aspartate Aminotrans (AST/SGOT 49 U/L (12-37); Blood Urea Nitrogen 80 mg/dL (8-24); Bun/Creatinine Ratio 25.2 (12.0-20.0); CO2, Blood 27 mmol/L (21-32); Calcium, Blood 8.2 mg/dL (8.5-10.1); Chloride, Blood 98 mmol/L (98-108); Creatinine, Blood 3.17 mg/dL (0.60-1.20); Glomerular Filtration Rate 21 (60-); Glucose, Blood 113 mg/dL (70-99); Phosphorus, Blood 5.1 mg/dL (2.5-4.9); Potassium, Blood 4.3 mmol/L (3.5-5.5); Sodium, Blood 136 mmol/L (136-145)
[2019-01-11 05:57] LABS: Albumin/Globulin Ratio 0.3 (0.8-1.8); Alk Phos 105 U/L (50-136); Bilirubin, Total 0.3 mg/dL (0.1-1.0); Globulin, Blood 4.8 g/dL (2.2-4.0); Total Protein, Blood 6.3 g/dL (6.4-8.2)
[2019-01-11 16:00] LABS: Percent Saturation 14.3 % (20.0-50.0)
--- NOTE | 2019-01-11 16:07 | NUR ---
SHIFT SUMMARY 73 YR OLD MALE. FULL CODE. ADMITTED FOR PYELONEPHRITIS (SEPSIS/UTI). PT HAS A NEPHROSTOMY AND A UROSTOMY. I CHANGED HIS UROSTOMY BAG TODAY. HE HAS DEPENDENT EDEMA IN HIS RT. ARM, HOSPITALIST RECOMMENDS I ELEVATE IT. HE IS ON 1 LPM O2 VIA NC. HE DOES HAVE A KIDNEY STONE THAT WILL NEED TAKEN CARE OF ON AN OUTPATIENT BASIS, BUT IT IS DECOMPRESSED FOR NOW WITH A UROSTOMY. PT HAS HAD SEVERAL LOOSE BOWEL MOVEMENTS, HOSPITALIST HAS ORDERED A GI PANEL. HOSPITALIST HAS ALSO ORDERED IV FLUIDS AND IV FENTANYL TODAY FOR THIS PT.
--- NOTE | 2019-01-11 18:33 | NUR ---
PT STATUS PT ON ENTERIC PRECAUTIONS UNTIL C-DIFF IS RULED OUT. HOSPITALIST HAS ORDERED GI PANEL FOR THIS PT. AWAITING RESULTS. PT HAS EXPERIENCED MULTIPLE LIQUID STOOLS TODAY.
[2019-01-11 20:00] LABS: Adenovirus F 40/41 Not Detected (NOT DETECT); Astrovirus Not Detected (NOT DETECT); Campylobacter Sp Not Detected (NOT DETECT); Cryptosporidium Not Detected (NOT DETECT); Cyclospora Cayetanensis Not Detected (NOT DETECT); E. Coli O157 Not Detected (NOT DETECT); Entamoeba Histolytica Not Detected (NOT DETECT); Enteroaggregative E. coli-EAEC Not Detected (NOT DETECT); Enteropathogenic E. coli-EPEC Not Detected (NOT DETECT); Enterotoxigenic E. coli-ETEC Not Detected (NOT DETECT); Giardia Lamblia Not Detected (NOT DETECT); Norovirus GI/GII Not Detected (NOT DETECT); Plesiomonas Shigelloides Not Detected (NOT DETECT); Rotavirus A Not Detected (NOT DETECT); Salmonella Sp Not Detected (NOT DETECT); Sapovirus Not Detected (NOT DETECT); Shiga Toxin-prod E. coli-STEC Not Detected (NOT DETECT); Shigella/Enteroin E. coli-EIEC Not Detected (NOT DETECT); Vibrio Cholerae Not Detected (NOT DETECT); Vibrio Sp Not Detected (NOT DETECT); Yersinia Enterocolitica Not Detected (NOT DETECT)
[2019-01-12 05:16] LABS: BASOPHILS ABSOLUTE AUTO 0.03 K/mm3 (0.00-0.23); BASOPHILS PERCENT AUTO 0 % (0-2); EOSINOPHILS ABSOLUTE AUTO 0.03 K/mm3 (0.00-0.68); EOSINOPHILS PERCENT AUTO 0 % (0-6); Hematocrit 30.3 % (37.0-53.0); IMMATURE GRAN ABSOLUTE AUTO 0.13 K/mm3 (0.00-0.10); IMMATURE GRAN PERCENT AUTO 1 % (0-1); LYMPHOCYTES PERCENT AUTO 5 % (21-46); MONOCYTES ABSOLUTE AUTO 1.28 K/mm3 (0.16-1.47); MONOCYTES PERCENT AUTO 8 % (4-13); Mean Corpuscular HGB 22.8 pg (26.0-34.0); Mean Corpuscular HGB Conc 29.7 g/dL (31.5-36.5); Mean Corpuscular Volume 77 fL (80-100); Mean Platelet Volume 9.9 fL (9.1-12.4); NEUTROPHILS ABSOLUTE AUTO 14.08 K/mm3 (1.96-9.15); NEUTROPHILS PERCENT AUTO 86 % (41-73); Platelet Count 431 K/mm3 (150-400); RDW Coefficient Variation 19.9 % (11.7-14.2); RDW Standard Deviation 53.2 fL (35.1-46.3); Red Blood Cell Count 3.95 M/mm3 (4.30-5.90); White Blood Cell Count 16.35 K/mm3 (4.00-11.30)
[2019-01-12 05:33] LABS: Albumin, Blood 1.5 g/dL (3.4-5.0); Anion Gap 11 mmol/L (6-16); Blood Urea Nitrogen 79 mg/dL (8-24); Bun/Creatinine Ratio 26.8 (12.0-20.0); CO2, Blood 23 mmol/L (21-32); Calcium, Blood 7.9 mg/dL (8.5-10.1); Chloride, Blood 103 mmol/L (98-108); Creatinine, Blood 2.95 mg/dL (0.60-1.20); Glomerular Filtration Rate 22 (60-); Glucose, Blood 109 mg/dL (70-99); Magnesium, Blood 1.8 mg/dL (1.6-2.4); Phosphorus, Blood 4.4 mg/dL (2.5-4.9); Sodium, Blood 137 mmol/L (136-145)
--- NOTE | 2019-01-12 07:20 | NUR ---
a+o, call light in reach, painful in groin and coccyx area, changed ostomy, natasha continues, floated, walking rounds completed with returning day staff
--- NOTE | 2019-01-12 16:39 | NUR ---
SHIFT SUMMARY PT/OT RECOMMENDED DISCHARGE TO A FACILITY FOR REHABILITATION TODAY. THE PT IS CONSIDERING THIS OPTION. THE PT EXPRESSED CONCERN ABOUT FINANCIAL PROBLEMS AND ABILITY TO PAY FOR REHAB FACILITY. PT WAS NEGATIVE FOR CDIFF BUT IS STILL HAVING LIQUID STOOLS. HIS KARELY AREA IS RED AND EXCORIATED. BARRIER CREAM IS IN PLACE. 3 OPEN SKIN SORES WERE NOTED ON HIS COCCYX TODAY (SEE PHOTOS IN PT CHART), BARRIER CREAM APPLIED, MEPILEX IN PLACE, PT REPOSITIONED OFF OF COCCYX. IRON AND MERRIPENUM IV GIVEN TODAY. ONCE COMPLETED, PT RESTARTED ON LR IV. NO SIGNIFICANT DRAINAGE INTO THE NEPHROSTOMY TODAY. PT'S COGNITION IS GREATLY IMPROVED FROM LAST WEEK.
--- NOTE | 2019-01-13 04:21 | NUR ---
73 YEAR OLD Male with pylonephritis, rt nephrotube what was placed to down drain continues to cecieve merrum antibiotic . rt neph tube drains 175 ml cloudy pink urine with sediment. Pt has patent urostomy x many years that drains pink urine and patent. PT has hx cva in Oct 2018 and has asphasia. Able to communicate but has difficulty with word finding. up with 2 assist to bedside commode or to bathroom. needs cues and assist FWWSHAZIA. PT very weak deconditioned and requests snf for rehab on discharge. He says he needs to go to SNF as after CVA he went home with home health and has continued to have acute and chronic medical issues. skin of perirectal area is macerated and denuded with open bleeding areas. skin cleansed with karacleanse and calmaseptic applied. medicated for co pain with tylenol with helpful effect. on oxygen to keep sats greater than 90% sob with exertion . will assure sw referral for dc plan in place.
[2019-01-13 08:04] LABS: BASOPHILS ABSOLUTE AUTO 0.04 K/mm3 (0.00-0.23); BASOPHILS PERCENT AUTO 0 % (0-2); EOSINOPHILS ABSOLUTE AUTO 0.18 K/mm3 (0.00-0.68); EOSINOPHILS PERCENT AUTO 1 % (0-6); Hematocrit 27.8 % (37.0-53.0); Hemoglobin 8.2 g/dL (13.5-17.5); IMMATURE GRAN ABSOLUTE AUTO 0.23 K/mm3 (0.00-0.10); IMMATURE GRAN PERCENT AUTO 2 % (0-1); LYMPHOCYTES ABSOLUTE AUTO 1.02 K/mm3 (0.84-5.20); LYMPHOCYTES PERCENT AUTO 8 % (21-46); MONOCYTES ABSOLUTE AUTO 1.13 K/mm3 (0.16-1.47); MONOCYTES PERCENT AUTO 9 % (4-13); Mean Corpuscular HGB 23.3 pg (26.0-34.0); Mean Corpuscular HGB Conc 29.5 g/dL (31.5-36.5); Mean Corpuscular Volume 79 fL (80-100); Mean Platelet Volume 9.6 fL (9.1-12.4); NEUTROPHILS ABSOLUTE AUTO 9.95 K/mm3 (1.96-9.15); NEUTROPHILS PERCENT AUTO 79 % (41-73); Platelet Count 405 K/mm3 (150-400); RDW Coefficient Variation 19.7 % (11.7-14.2); RDW Standard Deviation 55.4 fL (35.1-46.3); Red Blood Cell Count 3.52 M/mm3 (4.30-5.90); White Blood Cell Count 12.55 K/mm3 (4.00-11.30)
[2019-01-13 08:27] LABS: Albumin, Blood 1.4 g/dL (3.4-5.0); Anion Gap 6 mmol/L (6-16); Blood Urea Nitrogen 63 mg/dL (8-24); Bun/Creatinine Ratio 27.9 (12.0-20.0); CO2, Blood 22 mmol/L (21-32); Calcium, Blood 7.9 mg/dL (8.5-10.1); Chloride, Blood 110 mmol/L (98-108); Creatinine, Blood 2.26 mg/dL (0.60-1.20); Glomerular Filtration Rate 30 (60-); Glucose, Blood 82 mg/dL (70-99); Magnesium, Blood 1.5 mg/dL (1.6-2.4); Phosphorus, Blood 3.1 mg/dL (2.5-4.9); Potassium, Blood 3.8 mmol/L (3.5-5.5); Sodium, Blood 138 mmol/L (136-145)
--- NOTE | 2019-01-13 19:32 | NUR ---
SHIFT SUMMARY: NO ACUTE CHANGES TO REPORT THIS SHIFT. PT A&O X2; CALM AND COOPERATIVE WITH CARE. NO C/O PAIN THIS SHIFT. HX CVA; EXPRESSIVE APHASIA; RESIDUAL WEAKNESS. O2 @ 1L; LUNGS COARSE/DIM. UROSTOMY TO MID-ABDOMEN; APPLIANCE INTACT. R NEPHROSTOMY TUBE; PATENT AND DRAINING. REDDENED COCCYX; MEPILEX IN PLACE. IV ABX CONTINUING. REPORT GIVEN TO ONCOMING RN.
[2019-01-14 05:25] LABS: BASOPHILS ABSOLUTE AUTO 0.06 K/mm3 (0.00-0.23); BASOPHILS PERCENT AUTO 0 % (0-2); EOSINOPHILS ABSOLUTE AUTO 0.42 K/mm3 (0.00-0.68); EOSINOPHILS PERCENT AUTO 3 % (0-6); Hematocrit 27.4 % (37.0-53.0); Hemoglobin 8.1 g/dL (13.5-17.5); IMMATURE GRAN ABSOLUTE AUTO 0.36 K/mm3 (0.00-0.10); IMMATURE GRAN PERCENT AUTO 3 % (0-1); LYMPHOCYTES ABSOLUTE AUTO 1.94 K/mm3 (0.84-5.20); LYMPHOCYTES PERCENT AUTO 13 % (21-46); MONOCYTES ABSOLUTE AUTO 1.52 K/mm3 (0.16-1.47); MONOCYTES PERCENT AUTO 10 % (4-13); Mean Corpuscular HGB 23.1 pg (26.0-34.0); Mean Corpuscular HGB Conc 29.6 g/dL (31.5-36.5); Mean Corpuscular Volume 78 fL (80-100); Mean Platelet Volume 9.5 fL (9.1-12.4); NEUTROPHILS ABSOLUTE AUTO 10.26 K/mm3 (1.96-9.15); NEUTROPHILS PERCENT AUTO 71 % (41-73); Platelet Count 444 K/mm3 (150-400); RDW Coefficient Variation 20.1 % (11.7-14.2); RDW Standard Deviation 55.2 fL (35.1-46.3); Red Blood Cell Count 3.51 M/mm3 (4.30-5.90); White Blood Cell Count 14.56 K/mm3 (4.00-11.30)
[2019-01-14 06:26] LABS: Albumin, Blood 1.4 g/dL (3.4-5.0); Anion Gap 5 mmol/L (6-16); Blood Urea Nitrogen 63 mg/dL (8-24); CO2, Blood 26 mmol/L (21-32); Calcium, Blood 7.8 mg/dL (8.5-10.1); Chloride, Blood 111 mmol/L (98-108); Creatinine, Blood 2.03 mg/dL (0.60-1.20); Glomerular Filtration Rate 34 (60-); Glucose, Blood 102 mg/dL (70-99); Magnesium, Blood 1.9 mg/dL (1.6-2.4); Phosphorus, Blood 2.7 mg/dL (2.5-4.9); Potassium, Blood 3.6 mmol/L (3.5-5.5); Sodium, Blood 142 mmol/L (136-145)
--- NOTE | 2019-01-14 07:31 | NUR ---
PIPER INSTALLER SUMMARY PT AAOX3 AND PLEASANT. COOPERATIVE WITH CARE. DENIES PAIN, N/V, SOB. UROSTOMY APPLIANCE AND BAG CHANGED TODAY AFTER PREVIOUS BAG LEAKING. NO LEAKS SINCE REPLACEMENT. BP TRENDING UP THIS SHIFT WITH SBP INTO 190'S. RECIEVED ORDER FROM DR DILLON FOR PRN HYDRALAZINE IV. SBP 130'S AFTER HYDRALAZINE. BP'S HIGHER ON R ARM WHICH IS ARM THAT HAS SOME EDEMA. BP IMPROVED ON L ARM. OTHER VSS, WILL CONTINUE TO MONITOR.
--- NOTE | 2019-01-14 16:27 | NUR ---
SHIFT SUMMARY THE PATIENT PRESENTED THIS MORNING WITH VITALS WNL, A&O X4 AND WITH LUNG SOUNDS THE WERE RHONCHI IN THE UPPER AREAS AND COARSE AND DIMINISHED IN THE BASES. THE PATIENT HASA MEPELEX ON HIS COCCYX AREA THAT IS COVERING SERVERAL SMALL SORE AREAS. THE MEPELEX WAS CHANGED THIS SHIFT AND BARRIER CREAM WAS APPLIED TO THE AREA. THE PATIENT DID NOT WANT TO WORK WITH P/T THIS SHIFT, BUT WANTED TO WAIT UNTIL TOMORROW. THE PATIENT IS SLEEPING AT THIS TIME, WILL CONTIUE TO MONITOR.
--- NOTE | 2019-01-15 05:23 | NUR ---
*SHIFT SUMMARY* PATIENT IS ALERT AND ORIENTED TO SELF. PT IS CONFUSED AT TIMES. ON 1L NASAL CANNULA. UROSTOMY IS DRAINING LIGHT YELLOW. NEPHROSTOMY TUBE IS DRAINING DARK WITH SOME RED. NEW MEPLIX APPLIED TO COCCYX. PATIENT ROLLS ONTO LEFT SIDE BETTER THAN RIGHT. VITALS STABLE, TEMPERATURE IS SLIGHTLY ELEVATED. DECREASED TEMPERATURE IN ROOM AND REMOVED SOME BLANKETS. WILL RECHECK TEMPERATURE AND ADMINISTER TYLENOL ORDERED IF TEMPERATURE DOES NOT DECREASE. CALL LIGHT IN REACH.
[2019-01-15 05:40] LABS: BASOPHILS ABSOLUTE AUTO 0.05 K/mm3 (0.00-0.23); BASOPHILS PERCENT AUTO 0 % (0-2); EOSINOPHILS ABSOLUTE AUTO 0.48 K/mm3 (0.00-0.68); EOSINOPHILS PERCENT AUTO 3 % (0-6); Hematocrit 25.3 % (37.0-53.0); Hemoglobin 7.4 g/dL (13.5-17.5); IMMATURE GRAN PERCENT AUTO 5 % (0-1); LYMPHOCYTES ABSOLUTE AUTO 2.93 K/mm3 (0.84-5.20); LYMPHOCYTES PERCENT AUTO 16 % (21-46); MONOCYTES ABSOLUTE AUTO 1.87 K/mm3 (0.16-1.47); MONOCYTES PERCENT AUTO 11 % (4-13); Mean Corpuscular HGB 23.2 pg (26.0-34.0); Mean Corpuscular HGB Conc 29.2 g/dL (31.5-36.5); Mean Corpuscular Volume 79 fL (80-100); Mean Platelet Volume 9.7 fL (9.1-12.4); NEUTROPHILS ABSOLUTE AUTO 11.69 K/mm3 (1.96-9.15); NEUTROPHILS PERCENT AUTO 66 % (41-73); Platelet Count 474 K/mm3 (150-400); RDW Coefficient Variation 20.2 % (11.7-14.2); RDW Standard Deviation 55.8 fL (35.1-46.3); Red Blood Cell Count 3.19 M/mm3 (4.30-5.90); White Blood Cell Count 17.82 K/mm3 (4.00-11.30)
[2019-01-15 06:05] LABS: Albumin, Blood 1.4 g/dL (3.4-5.0); Anion Gap 6 mmol/L (6-16); Blood Urea Nitrogen 56 mg/dL (8-24); Bun/Creatinine Ratio 33.1 (12.0-20.0); CO2, Blood 20 mmol/L (21-32); Calcium, Blood 7.6 mg/dL (8.5-10.1); Chloride, Blood 114 mmol/L (98-108); Creatinine, Blood 1.69 mg/dL (0.60-1.20); Glomerular Filtration Rate 43 (60-); Glucose, Blood 100 mg/dL (70-99); Magnesium, Blood 1.7 mg/dL (1.6-2.4); Phosphorus, Blood 2.3 mg/dL (2.5-4.9); Potassium, Blood 4.5 mmol/L (3.5-5.5); Sodium, Blood 140 mmol/L (136-145)
--- NOTE | 2019-01-15 17:38 | NUR ---
SHIFT SUMMARY THE PATIENT PRESENT THIS SHIFT NEEDING A UNIT OF BLOOD, PATIENT'S VITALS WERE WNL, A&O X4 AND WITH LUNG SOUNDS THAT WERE COARSE RHONCHI WITH INSPIR. AND EXSPIR. WHEEZES. THE PATIENT HAS A ABCESS ON HIS RIGHT SIDE THAT DR. TERAN ORDERED A ULTRASOUND OF THE AREA AND A SURGICAL CONSULT BY DR. CHARLES. DOCTOR ARACELI ORDERED THE PATIENT NPO AFTER MID-NIGHT. THE PATIENT IS AWARE OF THE ORDER. THE PATIENT IS WATCHING TV AND DOZING AT THIS TIME, WILL CONTINUE TO MONITOR.
--- NOTE | 2019-01-15 22:30 | NUR ---
PT HAD CALLED REPORTING 10/10 RIGHT SIDED PAIN. THIS RN ASSESSED RIGHT SIDE TO FIND BLANKETS AND GOWN SATURATED IN BLOOD. PATIENT HAS A ABSCESS ON RIGHT SIDE OF ABDOMEN THAT IS TO HAVE AN I&D DONE BY DR. CHARLES IN THE AM. STAFF CLEANED UP PATIENT AND COVERED ABSCESS WITH DRESSING. CALLED THE HOSPITALIST AND RECIEVED NEW ORDERS FOR FENTANYL AND H&H ORDER AND TO NOTIFY TELEPHONE SUPERVISOR SURGEON. CALLED DR. CHARLES AND NOTIFIED HIM OF CURRENT STATUS OF THE PATIENT. NO NEW ORDERS, PLAN IS TO STILL GO TO SURGERY IN AM.
[2019-01-15 23:03] LABS: Hematocrit 29.3 % (37.0-53.0)
--- NOTE | 2019-01-16 04:55 | NUR ---
*SHIFT SUMMARY* PATIENT IS ALERT AND ORIENTED. ON 1L NASAL CANNULA. PT HAS NEPHROSTOMY TUBE AND A UROSTOMY TUBE, BOTH ARE DRAINING YELLOW NO REDNESS NOTED. PT HAS AN ABSCESS ON RIGHT SIDE OF ABDOMEN THAT OPENED DURING THE SHIFT AND HAD A LARGE AMOUNT OF BLOOD/PURULENT DRAINAGE. SEE PREVIOUS NOTES FOR MORE DETAIL. ABSCESS HAS A DRESSING ON THAT IS C/D/I. PLAN FOR PT IS TO GO TO THE OR THIS MORNING AND HAVE ABSCESS DRAINED. PT DID HAVE A LOT OF PAIN WHEN THE ABSCESS OPENED ON IT'S OWN AND WAS MEDICATED ORDERED. VITAL SIGNS HAVE BEEN STABLE. PT HAS BEEN NPO SINCE MIDNIGHT.
[2019-01-16 05:23] LABS: Hematocrit 28.6 % (37.0-53.0); Hemoglobin 8.7 g/dL (13.5-17.5); Mean Corpuscular HGB 24.4 pg (26.0-34.0); Mean Corpuscular HGB Conc 30.4 g/dL (31.5-36.5); Mean Corpuscular Volume 80 fL (80-100); Mean Platelet Volume 9.4 fL (9.1-12.4); NRBC ABSOLUTE 0.02 K/mm3 (0.00-0.02); NRBC Auto 0.1 /100 WBC (0.0-0.2); Platelet Count 507 K/mm3 (150-400); RDW Coefficient Variation 20.8 % (11.7-14.2); RDW Standard Deviation 59.5 fL (35.1-46.3); Red Blood Cell Count 3.57 M/mm3 (4.30-5.90); White Blood Cell Count 14.73 K/mm3 (4.00-11.30)
[2019-01-16 06:00] LABS: Albumin, Blood 1.4 g/dL (3.4-5.0); Anion Gap 9 mmol/L (6-16); Blood Urea Nitrogen 52 mg/dL (8-24); Bun/Creatinine Ratio 32.3 (12.0-20.0); CO2, Blood 24 mmol/L (21-32); Chloride, Blood 108 mmol/L (98-108); Creatinine, Blood 1.61 mg/dL (0.60-1.20); Glomerular Filtration Rate 45 (60-); Glucose, Blood 106 mg/dL (70-99); Magnesium, Blood 1.6 mg/dL (1.6-2.4); Phosphorus, Blood 3.4 mg/dL (2.5-4.9); Potassium, Blood 4.1 mmol/L (3.5-5.5); Sodium, Blood 141 mmol/L (136-145)
[2019-01-16 06:11] LABS: BAND PERCENT MAN 2 % (0-8); BASOPHILS ABSOLUTE MAN 0.29 K/mm3 (0.00-0.23); BASOPHILS PERCENT MAN 2 % (0-2); EOSINOPHILS ABSOLUTE MAN 0.14 K/mm3 (0.00-0.68); EOSINOPHILS PERCENT MAN 1 % (0-6); LYMPHOCYTES ABSOLUTE MAN 1.76 K/mm3 (0.84-5.20); LYMPHOCYTES PERCENT MAN 12 % (21-46); METAMYELOCYTE ABSOLUTE MAN 0.29 K/mm3 (0.00-0.00); METAMYELOCYTE PERCENT MAN 2 % (0-0); MONOCYTES ABSOLUTE MAN 1.47 K/mm3 (0.16-1.47); MONOCYTES PERCENT MAN 10 % (4-13); MYELOCYTE ABSOLUTE MAN 0.14 K/mm3 (0.00-0.00); MYELOCYTE PERCENT MAN 1 % (0-0); SEG NEUTROPHILS PERCENT MAN 70 % (41-73); TOTAL CELLS COUNTED 100
--- NOTE | 2019-01-16 12:45 | NUR ---
CALLED OR TO LET THEM KNOW PATIENT RECEIVED PAIN MEDS FEW MINUTES AGO. ALSO ADVISED SOMEONE TOOK OUT FENTANYL AT 1141 AND DO NOT KNOW WHO THE PERSON IS. OR CHECKED AND ST IS ANESTHESIOLOGST LISSET CHAPMAN MD.
--- NOTE | 2019-01-16 13:41 | NUR ---
DAY SURGERY RN | ASSUMED CARE FROM ALLYSON DUNCAN. Call placed to pharmacy regarding Y-site compatability issues between LR and CefTRIAXone Sodium 1000 mg. Pharmacist stated to this RN to "disconnect ringers and flush. Then administer Rocephin, then flush and reconnect ringers". This RN disconnected LR and flushed with 20 ml of NS. Started cefTRIAXone. Patient on 2 L NC satting at 100%.
--- NOTE | 2019-01-16 15:16 | NUR ---
01/16/19 1516 Dax Banerjee PATIENT ON SCHEDULED ANTIBIOTICS.
--- NOTE | 2019-01-16 16:04 | NUR ---
NEPHROSTOMY TUBE AND UROSTOMY TUBE IN PLACE AND A WOUND VAC TO RIGHT SIDE ALL INATCT
--- NOTE | 2019-01-16 17:12 | NUR ---
RECEIVED PATIENT BACK FROM DAY SURGERY AROUND 1615. PAIN ABOUT 6(0-10) WITH NORMAL AT HOME TOLERABLE PAIN 4. REFUSES ANY PAIN MEDS AT THIS TIME. UROSTOMY AND NEPHROSTOMY DRAINAGE BOTH RED TINGED; WHEREAS, THIS AM BOTH WEAR CLEAR YELLOW. SEWER LINE REPAIRER ENRIQUETA AWARE. WOUND VAC IN PLACE RT LATERAL ABD WITH GOOD SUCTION AND DRAINAGE OF BRIGHT RED. VSS. SCD'S ON. UNLABORED RESPIRATIONS. BED IN LOW POSITION. CALL LIGHT WITHIN REACH. ABLE TO MAKE NEEDS KNOWN. WILL CONTINUE TO MONITOR.
--- NOTE | 2019-01-16 18:28 | NUR ---
CALLED ANSWERING SERVICE. EXCESSIVE AMOUNT OF BLD AT BLACK DRESSING WHICH WOUND VAC IS NOT SUCKING. MANAGING PRINCIPAL UNABLE TO GET WOUND VAC TO WORK PROPERLY. POSSIBLE PRESSURE DRESSING?? AWAITING CALL BACK.
--- NOTE | 2019-01-16 18:57 | NUR ---
RETURNS CALL. ADVISED BLACK DRESSING APPEARS SATURATED W/BLD AND WOUND VAC NOT SUCKING OUT BLD. STS CAN EITHER CHANGE CLEAR COVERING OR BLACK SPONGE AND CLEAR COVERING. ADVISED THAT RADIOPHONE OPERATOR THOUGHT WE WERE NOT SUPPOSE TO CHANGE DRESSING POST OP. STS OK TO CHANGE BOTH. DOES NOT WANT PRESSURE DRESSING WHEN THIS WAS SUGGESTED. RADIOPHONE OPERATOR ADVISED.
--- NOTE | 2019-01-16 19:03 | NUR ---
REPORT TO NIGHT RN WHO IS AWARE PROCEDURE BEING DONE AT THIS TIME.
[2019-01-17 05:39] LABS: Hematocrit 28.7 % (37.0-53.0); Hemoglobin 8.5 g/dL (13.5-17.5); Mean Corpuscular HGB 23.7 pg (26.0-34.0); Mean Corpuscular HGB Conc 29.6 g/dL (31.5-36.5); Mean Corpuscular Volume 80 fL (80-100); Mean Platelet Volume 9.6 fL (9.1-12.4); NRBC ABSOLUTE 0.02 K/mm3 (0.00-0.02); NRBC Auto 0.1 /100 WBC (0.0-0.2); Platelet Count 525 K/mm3 (150-400); RDW Coefficient Variation 21.5 % (11.7-14.2); RDW Standard Deviation 61.1 fL (35.1-46.3); Red Blood Cell Count 3.58 M/mm3 (4.30-5.90); White Blood Cell Count 14.14 K/mm3 (4.00-11.30)
[2019-01-17 06:14] LABS: BAND PERCENT MAN 1 % (0-8); BASOPHILS PERCENT MAN 0 % (0-2); EOSINOPHILS ABSOLUTE MAN 0.28 K/mm3 (0.00-0.68); EOSINOPHILS PERCENT MAN 2 % (0-6); LYMPHOCYTES PERCENT MAN 5 % (21-46); METAMYELOCYTE ABSOLUTE MAN 0.56 K/mm3 (0.00-0.00); METAMYELOCYTE PERCENT MAN 4 % (0-0); MONOCYTES ABSOLUTE MAN 0.98 K/mm3 (0.16-1.47); MONOCYTES PERCENT MAN 7 % (4-13); MYELOCYTE ABSOLUTE MAN 0.14 K/mm3 (0.00-0.00); MYELOCYTE PERCENT MAN 1 % (0-0); NEUTROPHILS ABSOLUTE MAN 11.45 K/mm3 (1.96-9.15); SEG NEUTROPHILS PERCENT MAN 80 % (41-73); TOTAL CELLS COUNTED 100
[2019-01-17 06:18] LABS: Albumin, Blood 1.3 g/dL (3.4-5.0); Anion Gap 8 mmol/L (6-16); Blood Urea Nitrogen 51 mg/dL (8-24); Bun/Creatinine Ratio 29.8 (12.0-20.0); CO2, Blood 22 mmol/L (21-32); Chloride, Blood 108 mmol/L (98-108); Creatinine, Blood 1.71 mg/dL (0.60-1.20); Glomerular Filtration Rate 42 (60-); Glucose, Blood 97 mg/dL (70-99); Magnesium, Blood 1.6 mg/dL (1.6-2.4); Phosphorus, Blood 3.3 mg/dL (2.5-4.9); Potassium, Blood 4.7 mmol/L (3.5-5.5); Sodium, Blood 138 mmol/L (136-145)
--- NOTE | 2019-01-17 18:14 | NUR ---
DRESSING ON I&D SITE CHANGED, EXUDRY AND FOAM TAPE REAPPLIED. BLACK WOUND VAC FOAM REMAINS IN THE WOUND SITE AND WILL BE REMOVED BY DR. LINCOLN ON 01/18/19 IN THE OR AND WOUND VAC WILL BE REAPPLIED.
--- NOTE | 2019-01-17 18:17 | NUR ---
SHIFT SUMMARY: PT A&O; CALM AND COOPERATIVE WITH CARE. MEDICATED FOR PAIN PER EMAR. CONSULT REQUEST FROM DR CEJA. DR RODRIGUEZ SAW PT THIS SHIFT; PROCEDURE PLANNED FOR 01/18; PT TO BE NPO AFTER MIDNIGHT. IV ABX CONTINUING. WCTM.
--- NOTE | 2019-01-18 05:22 | NUR ---
VSS, AFEBRILE, A/O, PT C/O PAIN IN THE SURGICAL SITE ON HIS R FLANK AREA. WOUND IS COVERED BY DRESSSING THAT BECAME SATURATED DURING THE NIGHT. DRESSING CHANGED THIS MORNING, AND IS NOW C/D/I. PT IS CALM, PLEASANT AND COOPERATIVE WITH CARE. PT ANTICIPATES GOING TO A SURGICAL PROCEDURE LATER TODAY.
[2019-01-18 05:29] LABS: BASOPHILS ABSOLUTE AUTO 0.06 K/mm3 (0.00-0.23); BASOPHILS PERCENT AUTO 0 % (0-2); EOSINOPHILS ABSOLUTE AUTO 0.43 K/mm3 (0.00-0.68); EOSINOPHILS PERCENT AUTO 3 % (0-6); Hematocrit 28.1 % (37.0-53.0); Hemoglobin 8.3 g/dL (13.5-17.5); IMMATURE GRAN ABSOLUTE AUTO 0.63 K/mm3 (0.00-0.10); IMMATURE GRAN PERCENT AUTO 4 % (0-1); LYMPHOCYTES ABSOLUTE AUTO 2.25 K/mm3 (0.84-5.20); LYMPHOCYTES PERCENT AUTO 16 % (21-46); MONOCYTES ABSOLUTE AUTO 2.19 K/mm3 (0.16-1.47); MONOCYTES PERCENT AUTO 15 % (4-13); Mean Corpuscular HGB Conc 29.5 g/dL (31.5-36.5); Mean Corpuscular Volume 81 fL (80-100); Mean Platelet Volume 9.3 fL (9.1-12.4); NEUTROPHILS ABSOLUTE AUTO 8.96 K/mm3 (1.96-9.15); NEUTROPHILS PERCENT AUTO 62 % (41-73); NRBC ABSOLUTE 0.02 K/mm3 (0.00-0.02); NRBC Auto 0.1 /100 WBC (0.0-0.2); Platelet Count 568 K/mm3 (150-400); RDW Coefficient Variation 21.9 % (11.7-14.2); RDW Standard Deviation 64.1 fL (35.1-46.3); Red Blood Cell Count 3.46 M/mm3 (4.30-5.90); White Blood Cell Count 14.52 K/mm3 (4.00-11.30)
[2019-01-18 06:20] LABS: Magnesium, Blood 1.7 mg/dL (1.6-2.4)
[2019-01-18 06:24] LABS: Albumin, Blood 1.3 g/dL (3.4-5.0); Anion Gap 9 mmol/L (6-16); Blood Urea Nitrogen 60 mg/dL (8-24); Bun/Creatinine Ratio 36.6 (12.0-20.0); CO2, Blood 21 mmol/L (21-32); Calcium, Blood 8.1 mg/dL (8.5-10.1); Chloride, Blood 107 mmol/L (98-108); Creatinine, Blood 1.64 mg/dL (0.60-1.20); Glomerular Filtration Rate 44 (60-); Glucose, Blood 115 mg/dL (70-99); Phosphorus, Blood 3.1 mg/dL (2.5-4.9); Sodium, Blood 137 mmol/L (136-145)
--- NOTE | 2019-01-18 10:46 | NUR ---
PATIENT GAVE PERMISSION FOR ME TO CARE FOR HIM TODAY 01/18/19. History, Chart, Medications and Allergies reviewed before start of procedure.Patient confirms NPO status and agrees with scheduled surgery.PATIENT COMPLAINS OF PAIN IN PREVIOUS SURGICAL SITE OF RIGHT SIDE 05/27. SLIGHT WHEEZING PRESENT THROUGHOUT LUNGS.
--- NOTE | 2019-01-18 11:22 | NUR ---
STUDENT NURSE CARING FOR APTEINT. AGREE WITH HER CHARTING AND CARE OF PATIENT.
--- NOTE | 2019-01-18 13:28 | NUR ---
PT ARRIVED TO THE MEDICAL FROM PACU A/OX3, APPEARS TO BE BREATHING EASILY ON RA, NEWLY PLACED WOUND VAC IN PLACE AND DRAINING
--- NOTE | 2019-01-18 19:35 | NUR ---
PT IS A/OX3, PLEASANT AND COOPERATIVE, THE PT IS ABLE TO STAND AND PIVOT TP THE CHAIR WITH ASSISTANCE, HOWEVER TODAY THE PT REMAIND IN BED DUE TO SURGICAL PROCEDURE, THE PT APPEARS TO BE BREATHING EASILY ON RA, THE PT WAS MEDICATED FOR PAIN X1 THIS AM, CALL LIGHT IN REACH, WILL CONTINUE TO MONITOR AND ASSESS FOR CHANGES
--- NOTE | 2019-01-19 04:23 | NUR ---
SHIFT SUMMARY NO ACUTE CHANGES THIS SHIFT. WOUND VAC TO R LOWER CHEST/RIBS. DRESSING INTACT. SUCTIONING WELL. NEPHROSTOMY AND UROSTOMY NOTED, BOTH DRAINED WELL THROUGHOUT THE NIGHT. SKIN BENEATH UROSTOMY SLIGHTLY RED AND IRRITATED FROM BAG CHANGES. REDNESS TO BOTTOM, REPOSTIONED PT MUCH PT WOULD TOLERATE. MEPILEX IN PLACE. PT STATED THAT PAIN WAS "OKAY" AND THAT HE DIDN'T FEEL HE NEEDED ANY MEDICATION. DID NOT MEDICATE FOR PAIN THIS EVENING. PT SLEPT WELL FOR FIRST PART OF SHIFT. HOWEVER WOKE IN THE MIDDLE OF THE NIGHT AND AWAKE OFF AND ON AFTER. PT EASILY IRRITABLE AND DIFFICULT TO DEAL WITH ONCE UPSET. NO ACUTE CHANGES THIS EVENING. VSS. WILL CONTINUE TO MONITOR.
[2019-01-19 05:16] LABS: BASOPHILS ABSOLUTE AUTO 0.02 K/mm3 (0.00-0.23); BASOPHILS PERCENT AUTO 0 % (0-2); EOSINOPHILS PERCENT AUTO 0 % (0-6); Hemoglobin 8.7 g/dL (13.5-17.5); IMMATURE GRAN ABSOLUTE AUTO 0.42 K/mm3 (0.00-0.10); IMMATURE GRAN PERCENT AUTO 3 % (0-1); LYMPHOCYTES ABSOLUTE AUTO 1.17 K/mm3 (0.84-5.20); LYMPHOCYTES PERCENT AUTO 7 % (21-46); MONOCYTES ABSOLUTE AUTO 0.71 K/mm3 (0.16-1.47); MONOCYTES PERCENT AUTO 4 % (4-13); Mean Corpuscular Volume 80 fL (80-100); Mean Platelet Volume 9.6 fL (9.1-12.4); NEUTROPHILS ABSOLUTE AUTO 14.67 K/mm3 (1.96-9.15); NEUTROPHILS PERCENT AUTO 86 % (41-73); Platelet Count 631 K/mm3 (150-400); RDW Coefficient Variation 21.8 % (11.7-14.2); RDW Standard Deviation 61.9 fL (35.1-46.3); Red Blood Cell Count 3.63 M/mm3 (4.30-5.90); White Blood Cell Count 16.99 K/mm3 (4.00-11.30)
[2019-01-19 05:34] LABS: Albumin, Blood 1.5 g/dL (3.4-5.0); Anion Gap 10 mmol/L (6-16); Blood Urea Nitrogen 74 mg/dL (8-24); CO2, Blood 22 mmol/L (21-32); Calcium, Blood 8.5 mg/dL (8.5-10.1); Chloride, Blood 105 mmol/L (98-108); Creatinine, Blood 1.72 mg/dL (0.60-1.20); Glomerular Filtration Rate 42 (60-); Glucose, Blood 150 mg/dL (70-99); Magnesium, Blood 1.8 mg/dL (1.6-2.4); Phosphorus, Blood 3.2 mg/dL (2.5-4.9); Potassium, Blood 5.3 mmol/L (3.5-5.5); Sodium, Blood 137 mmol/L (136-145)
--- NOTE | 2019-01-19 10:29 | NUR ---
PT RESTING IN BED OFFERED TO ASSIT THE PT TO THE CHAIR HE AGREED, HOWEVER REPLIED THAT HE WAS NOT READY AT THIS TIME
--- NOTE | 2019-01-19 18:28 | NUR ---
PT IS A/OX3, PLEASANT AND COOPERATIVE, THE PT IS UP WITH ASSIST TO THE BSC AND TO THE CHAIR, THE PT WAS UP INTO THE CHAIR TODAY FOR APROX. 1 HR, HTE PT DECLINED WORKING WIT THE PHYSICAL THERAPIST DUE TO SUDDEN ONSET OF DIARRHEA, THE PT APPEARS TO BE BREATHING EASILY ON RA, WAS AT THE BEDSIDE FOR A SHORT WHILE TODAY, CALL LIGHT IN REACH WILL, UROSTOMY, NEPHROSTOMY, AND WOUND VAC ALL INTACT AND WORKING
--- NOTE | 2019-01-19 23:28 | NUR ---
2250 PT HAD DIARRHEA X 2 PAST HOUR, NEPHROSTOMY EMPTIED 100ML PINK FLUID AND UROSTOMY EMPTIED 750ML PINK FLUID (NO CLOTS) PER ONEIL RAY CNA. THIS NURSE CALLED Trisha ZHANG NP AND ADVISED OF ABOVE WITH ORDERS RECEIVED FOR IMODIUM 4MG PO NOW.
--- NOTE | 2019-01-19 23:32 | NUR ---
2311 IMODIUM 4MG PO GIVEN. PTS BILATERAL GROIN RED AND EXCORIATED. THIS NURSE ADVISED STORAGE WHARFAGE CLERK TO WASH AND REMOVE OINTMENT AND NYSTATIN POWDER FROM THIS AREA AND TO PLACE DRY COTTON WIPES BETWEEN LEGS TO ALLOW AIR TO SITE. WILL CONTINUE TO MONITOR. PTS PENIS TIP ALSO RED AND EXCORIATED AND CLEANSED UP ALSO. WILL HAVE MD HERRERA IN AM.
--- NOTE | 2019-01-20 04:28 | NUR ---
73 Y/O MALE RESTED COMFORTABLY ALL EVENING. PTS NEPHROSTOMY AND UROSTOMY WERE NOTED TO BE DRAINING LIGHT PINK FLUID ALL EVENING (MD PAYROLL CONSULTANT NOTIFIED DURING THIS SHIFT). PT ALSO HAS WOUND VAC TO RIGHT FLANK THAT DRAINING SCANT BROWN FLUID TO 125MM/HCG INTERMITTENT SUCTION (5 NON OPENED BLISTERS ARE NOTED UNDER DRAPE AT ANTERIOR ASPECT). PT HAD NO MORE LOOSE STOOLS SINCE IMODIUM 4MG GIVEN LAST NIGHT. PT DENIES PAIN OR NAUSEA. PTS BED IN LOW POSITION, CALL LIGHT AT SIDE.
[2019-01-20 05:35] LABS: Hematocrit 29.1 % (37.0-53.0); Hemoglobin 8.7 g/dL (13.5-17.5)
[2019-01-20 06:02] LABS: Albumin, Blood 1.5 g/dL (3.4-5.0); Anion Gap 7 mmol/L (6-16); Blood Urea Nitrogen 74 mg/dL (8-24); Bun/Creatinine Ratio 44.6 (12.0-20.0); CO2, Blood 26 mmol/L (21-32); Calcium, Blood 8.3 mg/dL (8.5-10.1); Chloride, Blood 107 mmol/L (98-108); Creatinine, Blood 1.66 mg/dL (0.60-1.20); Glomerular Filtration Rate 43 (60-); Glucose, Blood 92 mg/dL (70-99); Magnesium, Blood 1.9 mg/dL (1.6-2.4); Phosphorus, Blood 2.5 mg/dL (2.5-4.9); Potassium, Blood 4.5 mmol/L (3.5-5.5); Sodium, Blood 140 mmol/L (136-145)
--- NOTE | 2019-01-20 07:05 | NUR ---
ASSUMED CARE OF PT- BEDSIDE REPORT COMPLETED WITH NIGHT RN WILEY. PER REPORT PT HAS A UROSTOMY WELL A RIGHT NEPHROSTOMY AND A WOUND VAC ON THE RIGHT FLANK. PT HAS PAIN THAT APPEARS TO BE WELL MANAGED AT THE TIME OF SHIFT CHANGE. PT ALERT AND ORIENTED, AND LIKES TO REMINICE WITH STAFF. PER REPORT PT HAS A MEPILEX ON COCCYX FOR A PRESSURE SORE PRESENT THERE, WILL CHANGE LATER IN THE SHIFT. NO CURRENT C/O PAIN OR S&S OF DISTRESS.
--- NOTE | 2019-01-20 18:57 | NUR ---
SHIFT SUMMARY- PT HAS EXCORIATION IN THE GRION, WHEN THE FORESKIN IS PULLED BACK THERE IS SOME PAINFULL REDNESS AND WHITE PRURULENT DISCHARGE. GROIN AND SCROUM WERE CLEANED AND DRIED AND DRY WIPES WERE PLACED IN THE FOLDS TO KEEP THE AREA DRY. PT FIDDLES WITH HIS UROSTOMY AND TURNS THE VALVE OFF, STAFF SHOULD CHECK THIS FREQUENTLY TO PREVENT LEAKAGE, REINFORCED THE APPLIANCE WITH TEGADERM THIS EVENING, D/T NO NEW APPLIANCE AVAILABLE AT THIS TIME. PT WOUND VAC IS DUE TO BE CHANGED TOMORROW 01-21-19. PER DR ORDER IT IS NOT TO BE CHANGED UNTIL THEN.
[2019-01-21 05:30] LABS: Hematocrit 28.5 % (37.0-53.0); Hemoglobin 8.4 g/dL (13.5-17.5)
[2019-01-21 05:54] LABS: Magnesium, Blood 1.9 mg/dL (1.6-2.4)
[2019-01-21 05:56] LABS: Albumin, Blood 1.5 g/dL (3.4-5.0); Anion Gap 7 mmol/L (6-16); Blood Urea Nitrogen 63 mg/dL (8-24); Bun/Creatinine Ratio 43.8 (12.0-20.0); CO2, Blood 25 mmol/L (21-32); Calcium, Blood 8.3 mg/dL (8.5-10.1); Chloride, Blood 107 mmol/L (98-108); Creatinine, Blood 1.44 mg/dL (0.60-1.20); Glomerular Filtration Rate 51 (60-); Glucose, Blood 89 mg/dL (70-99); Phosphorus, Blood 2.7 mg/dL (2.5-4.9); Potassium, Blood 5.2 mmol/L (3.5-5.5); Sodium, Blood 139 mmol/L (136-145)
--- NOTE | 2019-01-21 17:59 | NUR ---
SHIFT SUMMARY PATIENT IS 1-2 ASSIST TO COMMODE. UROSTOMY DRAINING CONE TRUCKER PINK COLOR TODAY COMPARED TO YESTERDAY. WOUND VAC ON RIGHT FLANK, DRESSING CHANGED WITH WILMER RN AFTER MEDICATION PER EMAR. PT TOLERATED PROCEDURE WELL. SKIN STILL EXCORIATED, KEEPING C/D/I. VSS ON ROOM AIR.
--- NOTE | 2019-01-22 05:06 | NUR ---
73 Y/O MALE RESTED COMFORTABLY ALL EVENING. PTS UROSTOMY DRAINING CLEAR YELLOW FLUID; NEPHROSTOMY DRAINING LIGHT PINK FLUID. PTS WOUND VAC PATENT WITH INTERMITTENT SUCTION AT 125MM/HCG NOTED, SCANT DRAINAGE. PT HAPPY AND COOPERATIVE. PT GIVEN FENTANYL 25MG IVP FOR GENERALIZED PAIN X1 THIS EVENING. PT DENIES NAUSEA. PT REFUSED TO HAVE NEW IV RESTARTED LAST PM HE STATED, "I AM SUCH A HARD START AND I HATE NEEDLES". PTS IV TO RFA WITHOUT REDNESS OR SWELLING. PTS BED IN LOW POSITION WITH CALL LIGHT AT SIDE.
[2019-01-22 05:34] LABS: Hematocrit 28.6 % (37.0-53.0); Hemoglobin 8.8 g/dL (13.5-17.5)
[2019-01-22 05:50] LABS: Albumin, Blood 1.5 g/dL (3.4-5.0); Anion Gap 6 mmol/L (6-16); Blood Urea Nitrogen 56 mg/dL (8-24); Bun/Creatinine Ratio 40.9 (12.0-20.0); CO2, Blood 26 mmol/L (21-32); Calcium, Blood 8.4 mg/dL (8.5-10.1); Chloride, Blood 105 mmol/L (98-108); Creatinine, Blood 1.37 mg/dL (0.60-1.20); Glomerular Filtration Rate 54 (60-); Glucose, Blood 105 mg/dL (70-99); Magnesium, Blood 1.9 mg/dL (1.6-2.4); Phosphorus, Blood 2.8 mg/dL (2.5-4.9); Potassium, Blood 4.8 mmol/L (3.5-5.5); Sodium, Blood 137 mmol/L (136-145)
--- NOTE | 2019-01-22 19:31 | NUR ---
SHIFT SUMMARY PT IS A 2 PERSON ASSIST TO REPOSITION. PAIN MANAGED WITH SCHEDULED MEDICATION AND FENTANYL PRN. WOUND VAC IN PLACE AND FUNCTIONING. VSS. REPORT GIVEN TO CARLOTA DUNCAN.
--- NOTE | 2019-01-23 05:30 | NUR ---
73 Y/O MALE SLEPT COMFORTABLY ALL NIGHT. PT MEDICATED TWICE FENTANYL 50MCG X 2 FOR RIGHT FLANK PAIN WITH RELIEF FELT. PTS WOUND VAC DRAINING LIGHT RED FLUID TO INTERMITTENT SUCTION AT 125MM/HG NEPHROSTOMY AND UROSTOMY DRAINING CLEAR YELLOW FLUID. PT ALERT AND ORIENTED X 3, REPOSITIONED Q2H BY STAFF. PT HAPPY AND COOPERATIVE. PT DENIED NAUSEA, BED LOW POSITION, CALL LIGHT AT SIDE.
[2019-01-23 05:31] LABS: BASOPHILS ABSOLUTE AUTO 0.07 K/mm3 (0.00-0.23); BASOPHILS PERCENT AUTO 0 % (0-2); EOSINOPHILS ABSOLUTE AUTO 0.19 K/mm3 (0.00-0.68); EOSINOPHILS PERCENT AUTO 1 % (0-6); Hematocrit 27.8 % (37.0-53.0); Hemoglobin 8.4 g/dL (13.5-17.5); IMMATURE GRAN ABSOLUTE AUTO 0.76 K/mm3 (0.00-0.10); IMMATURE GRAN PERCENT AUTO 4 % (0-1); LYMPHOCYTES PERCENT AUTO 14 % (21-46); MONOCYTES ABSOLUTE AUTO 1.84 K/mm3 (0.16-1.47); MONOCYTES PERCENT AUTO 9 % (4-13); Mean Corpuscular HGB 24.3 pg (26.0-34.0); Mean Corpuscular HGB Conc 30.2 g/dL (31.5-36.5); Mean Corpuscular Volume 80 fL (80-100); Mean Platelet Volume 9.3 fL (9.1-12.4); NEUTROPHILS ABSOLUTE AUTO 13.92 K/mm3 (1.96-9.15); NEUTROPHILS PERCENT AUTO 71 % (41-73); Platelet Count 564 K/mm3 (150-400); RDW Coefficient Variation 22.5 % (11.7-14.2); RDW Standard Deviation 64.4 fL (35.1-46.3); Red Blood Cell Count 3.46 M/mm3 (4.30-5.90); White Blood Cell Count 19.58 K/mm3 (4.00-11.30)
[2019-01-23 05:50] LABS: BAND PERCENT MAN 2 % (0-8); BASOPHILS PERCENT MAN 0 % (0-2); EOSINOPHILS ABSOLUTE MAN 0.19 K/mm3 (0.00-0.68); EOSINOPHILS PERCENT MAN 1 % (0-6); LYMPHOCYTES ABSOLUTE MAN 2.34 K/mm3 (0.84-5.20); LYMPHOCYTES PERCENT MAN 12 % (21-46); METAMYELOCYTE ABSOLUTE MAN 0.19 K/mm3 (0.00-0.00); METAMYELOCYTE PERCENT MAN 1 % (0-0); MONOCYTES ABSOLUTE MAN 0.78 K/mm3 (0.16-1.47); MONOCYTES PERCENT MAN 4 % (4-13); MYELOCYTE ABSOLUTE MAN 0.78 K/mm3 (0.00-0.00); MYELOCYTE PERCENT MAN 4 % (0-0); NEUTROPHILS ABSOLUTE MAN 15.27 K/mm3 (1.96-9.15); SEG NEUTROPHILS PERCENT MAN 76 % (41-73); TOTAL CELLS COUNTED 100
[2019-01-23 05:54] LABS: Magnesium, Blood 1.7 mg/dL (1.6-2.4)
[2019-01-23 06:05] LABS: Albumin, Blood 1.5 g/dL (3.4-5.0); Anion Gap 6 mmol/L (6-16); Blood Urea Nitrogen 54 mg/dL (8-24); Bun/Creatinine Ratio 39.1 (12.0-20.0); CO2, Blood 26 mmol/L (21-32); Chloride, Blood 105 mmol/L (98-108); Creatinine, Blood 1.38 mg/dL (0.60-1.20); Glomerular Filtration Rate 54 (60-); Glucose, Blood 114 mg/dL (70-99); Phosphorus, Blood 2.2 mg/dL (2.5-4.9); Potassium, Blood 4.8 mmol/L (3.5-5.5); Sodium, Blood 137 mmol/L (136-145)
--- NOTE | 2019-01-23 10:33 | NUR ---
SPOKE WITH DR. CUEVAS THIS AM IN REGARDS TO PT'S INCREASING LEUKOCYTOSIS AND THAT PT NEEDED NEW IV ACCESS, SHE REPORTED THAT PT WOUND BENIFIT FROM A MIDLINE IV. DR. CUEVAS THEN PLACED ORDERS FOR CT OF ABD. CT COMPLETED AT THIS TIME. AWAITING RESULTS.
--- NOTE | 2019-01-23 10:38 | NUR ---
DR. CUEVAS NOTFIED OF CT RESULTS AND THAT PT CONTINUES WITH RED TINGED URINE FROM R NEPHROSTOMY. RECIEVED ORDER TO D/C LOVENOX.
--- NOTE | 2019-01-23 11:43 | NUR ---
PATIENT GAVE SEISMOGRAPH OPERATOR PERMISSION TO PROVIDE CARE ON 01/23/19.
--- NOTE | 2019-01-23 18:00 | NUR ---
SHIFT SUMMARY. PT CONTINUES WITH PAIN TO R ABD WHERE WOUND VAC DRESSING IS LOCATED, PAIN MANAGED WELL WITH CURRENT ORDERS. NO N/V, SOB. WOUND VAC DRESSING CHANGED AND POWER GLIDE MIDLINE IV COMPLETED BY PROCEDURE NURSE TODAY. PT TOLERATED WELL WITH ONE TIME DOSE OF FENTANYL 50 MCG IV 30 MINUTES PRIOR TO PROCEDURE. BROTHER AND SISTER IN LAW IN TO VISIT THIS AFTERNOON. PT HAD ONE LOOSE INCONTINENT BOWEL MOVEMENTS TODAY. NEPHROSTOMY DRAINING RED TINGED URINE, LOVENOX D/C. DR. CUEVAS AWARE. NO OTHER CHANGES.
--- NOTE | 2019-01-24 04:33 | NUR ---
SHIFT SUMMARY: PT IS ALERT AND ORIENTED WITH MINOR CONFUSION. PT IS CALM AND COOPERATIVE WITH CARE. PT CALLS APPROPRIATELY. PT IS A 2 ASSIST FOR TRANSFERS, NOT OUT OF BED OVERNIGHT. PT REPORTS R. ABD PAIN, MEDICATING PER EMAR. PT'S GAGAN POWERGLIDE NOT PATENT AFTER INITIAL USE, ATTEMPTED TO REPOSITION IT WITHOUT SUCCESS, PT IS A VERY DIFFICULT IV START, WILL ATTEMPT TO REPOSITION THE POWERGLIDE ONCE MORE AND FOLLOW UP WITH DAY NURSE IF UNSUCCESSFUL, 1 DOSE OF IV ANTIBIOTICS MISSED. PT DENIES NAUSEA, VOMITING, AND SOB. WOUND VAC IN PLACE AND FUNCTIONING WNL. UROSTOMY AND NEPHROSTOMY PATENT AND DRAINING. BED IN LOW POSITION, CALL LIGHT WITHIN REACH.
[2019-01-24 05:31] LABS: BASOPHILS ABSOLUTE AUTO 0.07 K/mm3 (0.00-0.23); BASOPHILS PERCENT AUTO 0 % (0-2); EOSINOPHILS ABSOLUTE AUTO 0.14 K/mm3 (0.00-0.68); EOSINOPHILS PERCENT AUTO 1 % (0-6); Hematocrit 28.3 % (37.0-53.0); Hemoglobin 8.5 g/dL (13.5-17.5); IMMATURE GRAN ABSOLUTE AUTO 0.74 K/mm3 (0.00-0.10); IMMATURE GRAN PERCENT AUTO 3 % (0-1); LYMPHOCYTES ABSOLUTE AUTO 3.16 K/mm3 (0.84-5.20); LYMPHOCYTES PERCENT AUTO 14 % (21-46); MONOCYTES ABSOLUTE AUTO 2.18 K/mm3 (0.16-1.47); MONOCYTES PERCENT AUTO 10 % (4-13); Mean Corpuscular HGB 23.9 pg (26.0-34.0); Mean Corpuscular Volume 80 fL (80-100); Mean Platelet Volume 9.4 fL (9.1-12.4); NEUTROPHILS ABSOLUTE AUTO 16.37 K/mm3 (1.96-9.15); NEUTROPHILS PERCENT AUTO 72 % (41-73); Platelet Count 574 K/mm3 (150-400); RDW Coefficient Variation 22.4 % (11.7-14.2); Red Blood Cell Count 3.55 M/mm3 (4.30-5.90); White Blood Cell Count 22.66 K/mm3 (4.00-11.30)
[2019-01-24 05:46] LABS: Albumin, Blood 1.5 g/dL (3.4-5.0); Anion Gap 7 mmol/L (6-16); Blood Urea Nitrogen 51 mg/dL (8-24); Bun/Creatinine Ratio 37.2 (12.0-20.0); CO2, Blood 26 mmol/L (21-32); Calcium, Blood 8.3 mg/dL (8.5-10.1); Chloride, Blood 104 mmol/L (98-108); Creatinine, Blood 1.37 mg/dL (0.60-1.20); Glomerular Filtration Rate 54 (60-); Glucose, Blood 114 mg/dL (70-99); Magnesium, Blood 1.9 mg/dL (1.6-2.4); Phosphorus, Blood 2.6 mg/dL (2.5-4.9); Sodium, Blood 137 mmol/L (136-145)
[2019-01-24 05:56] LABS: BAND PERCENT MAN 2 % (0-8); BASOPHILS PERCENT MAN 0 % (0-2); EOSINOPHILS PERCENT MAN 0 % (0-6); LYMPHOCYTES ABSOLUTE MAN 2.94 K/mm3 (0.84-5.20); LYMPHOCYTES PERCENT MAN 13 % (21-46); MONOCYTES ABSOLUTE MAN 1.58 K/mm3 (0.16-1.47); MONOCYTES PERCENT MAN 7 % (4-13); NEUTROPHILS ABSOLUTE MAN 18.12 K/mm3 (1.96-9.15); SEG NEUTROPHILS PERCENT MAN 78 % (41-73); TOTAL CELLS COUNTED 100
--- NOTE | 2019-01-24 13:59 | NUR ---
PATIENT GAVE PERMISSION ON 01/24/19 FOR STUDENT NURSE TO TAKE CARE OF HIM THE MORNING OF 01/25/19 AND TO ACCESS HIS CHART.
--- NOTE | 2019-01-24 17:04 | NUR ---
SHIFT SUMMARY PT HAS HAD NO ACUTE CHANGES THIS SHIFT, REFUSED TO GET OUT OF BED THIS SHIFT, MEDICATED 2X FOR PAIN, NO OTHER COMPLAINTS, AT BEDSIDE FOR SEVERAL HOURS THIS SHIFT-AT BEDSIDE WHEN DR CUEVAS VISITED, ALL QUESTIONS ADDRESSED. PT APPEARS TO BE SLEEPING AT THIS TIME, WILL CONT TO MONITOR UNTIL REPORT GIVEN TO NOC RN.
[2019-01-24 18:00] LABS: Source, Urine Urostomy Bag
[2019-01-24 18:04] LABS: Bilirubin, Urine Neg (Neg); Blood, Urine 5+ (Neg); Glucose Qualitative, Urine Neg (Neg); Ketones, Urine Neg (Neg); Leukocyte Esterase, Urine 3+ (Neg); Nitrite, Urine Neg (Neg); Protein, Urine 2+ (Neg); Specific Gravity, Urine 1.005 (1.003-1.022); Urobilinogen, Urine NORM (Normal)
[2019-01-24 18:42] LABS: Appearance, Urine Cloudy (Clear); Color, Urine Red (P-Yellow)
[2019-01-24 18:44] LABS: Bacteria Many /hpf; Red Blood Cells, Urine TNTC /hpf (0-2); Squamous Epithelial Cells Few /hpf (Few); White Blood Cells, Urine 50-100 /hpf (0-5)
--- NOTE | 2019-01-25 05:23 | NUR ---
VSS, AFEBRILE, A/O, BRIGHT RED URINE FROM NEPHROSTOMY TUBE, REGULAR YELLOW URINE FROM UROSTOMY, WOUND VAN IN PLACE AND FUNCTIONING WNL, POWERGLIDE IS VERY POSITIONAL AND ALARMS THE IV PUMP WHEN PT BENDS HIS ARM. PT WAS INCONT OF STOOL, GROIN AREA IS EXCORIATED FRONT AND BACK, PT CONTINUES TO C/O GENERALIZED PAIN T/O, BUT MOSTLY BACK, LEGS AND FLANK. PT MEDICATED FOR PAIN PER ORDER. PT HAS MANY IVPB MEDICATIONS THAT ARE SCHEDULED SIMULTANEOUSLY. WILL REPORT TO ON-COMING SHIFT.
[2019-01-25 05:24] LABS: BASOPHILS ABSOLUTE AUTO 0.04 K/mm3 (0.00-0.23); BASOPHILS PERCENT AUTO 0 % (0-2); EOSINOPHILS ABSOLUTE AUTO 0.13 K/mm3 (0.00-0.68); EOSINOPHILS PERCENT AUTO 1 % (0-6); Hematocrit 26.3 % (37.0-53.0); IMMATURE GRAN ABSOLUTE AUTO 0.52 K/mm3 (0.00-0.10); IMMATURE GRAN PERCENT AUTO 2 % (0-1); LYMPHOCYTES ABSOLUTE AUTO 2.22 K/mm3 (0.84-5.20); LYMPHOCYTES PERCENT AUTO 10 % (21-46); MONOCYTES ABSOLUTE AUTO 2.19 K/mm3 (0.16-1.47); MONOCYTES PERCENT AUTO 10 % (4-13); Mean Corpuscular HGB 24.2 pg (26.0-34.0); Mean Corpuscular HGB Conc 30.4 g/dL (31.5-36.5); Mean Corpuscular Volume 80 fL (80-100); Mean Platelet Volume 9.7 fL (9.1-12.4); NEUTROPHILS ABSOLUTE AUTO 16.48 K/mm3 (1.96-9.15); NEUTROPHILS PERCENT AUTO 76 % (41-73); Platelet Count 504 K/mm3 (150-400); RDW Coefficient Variation 22.5 % (11.7-14.2); RDW Standard Deviation 64.2 fL (35.1-46.3); White Blood Cell Count 21.58 K/mm3 (4.00-11.30)
[2019-01-25 05:57] LABS: Magnesium, Blood 1.9 mg/dL (1.6-2.4)
[2019-01-25 05:58] LABS: Alanine Aminotransfer (ALT/SGP 33 U/L (12-78); Albumin, Blood 1.7 g/dL (3.4-5.0); Albumin/Globulin Ratio 0.4 (0.8-1.8); Alk Phos 96 U/L (50-136); Anion Gap 8 mmol/L (6-16); Aspartate Aminotrans (AST/SGOT 17 U/L (12-37); Bilirubin, Total 0.3 mg/dL (0.1-1.0); Blood Urea Nitrogen 51 mg/dL (8-24); Bun/Creatinine Ratio 33.8 (12.0-20.0); CO2, Blood 25 mmol/L (21-32); Calcium, Blood 8.3 mg/dL (8.5-10.1); Chloride, Blood 103 mmol/L (98-108); Creatinine, Blood 1.51 mg/dL (0.60-1.20); Globulin, Blood 4.2 g/dL (2.2-4.0); Glomerular Filtration Rate 48 (60-); Glucose, Blood 116 mg/dL (70-99); Phosphorus, Blood 2.8 mg/dL (2.5-4.9); Sodium, Blood 136 mmol/L (136-145); Total Protein, Blood 5.9 g/dL (6.4-8.2)
--- NOTE | 2019-01-25 19:10 | NUR ---
SHIFT SUMMARY: NO ACUTE CHANGES TO REPORT THIS SHIFT. PT A&O; CALM AND COOPERATIVE WITH CARE. MEDICATED FOR PAIN PER EMAR-PT RECEIVING FENTANYL 50 MCG Q4P FOR KNEE PAIN. WOUND VAC TO RIGHT FLANK WOUND; DRESSING CHANGED TODAY. IV ABX CONTINUING. REPORT GIVEN TO ONCOMING RN.
--- NOTE | 2019-01-26 03:58 | NUR ---
SHIFT SUMMARY PATIENT HAD NO ACUTE CHANGES OBSERVED THIS SHIFT. AXO X3 AND BEDFAST. VSS/AFEBRILE. FENTANYL 50 MCG IV GIVEN X THREE FOR GENERAL PAIN INCLUDING KNEE AND RS BACK. POWERGLIDE GAGAN INTACT. THREE IV ABX INFUSED. BLOOD RED TINGE URINE FROM NEPHROSTOMY TUBE. WOUND VAC IN PLACE. UROSTOMY PATENT AND DRAINING. COOPERATIVE W/CARE. CALL LIGHT IN REACH. BED IN LOWEST POSITION. WILL CONTINUE TO MONITOR UNTIL DAY SHIFT NURSE ASSUMES CARE.
[2019-01-26 05:25] LABS: Hematocrit 27.3 % (37.0-53.0); Hemoglobin 8.6 g/dL (13.5-17.5)
[2019-01-26 05:54] LABS: Magnesium, Blood 2.1 mg/dL (1.6-2.4)
[2019-01-26 05:55] LABS: Albumin, Blood 1.6 g/dL (3.4-5.0); Anion Gap 12 mmol/L (6-16); Blood Urea Nitrogen 49 mg/dL (8-24); Bun/Creatinine Ratio 29.7 (12.0-20.0); CO2, Blood 21 mmol/L (21-32); Calcium, Blood 8.2 mg/dL (8.5-10.1); Chloride, Blood 107 mmol/L (98-108); Creatinine, Blood 1.65 mg/dL (0.60-1.20); Glomerular Filtration Rate 44 (60-); Glucose, Blood 121 mg/dL (70-99); Phosphorus, Blood 3.1 mg/dL (2.5-4.9); Potassium, Blood 4.9 mmol/L (3.5-5.5); Sodium, Blood 140 mmol/L (136-145)
[2019-01-26 08:31] LABS: BASOPHILS ABSOLUTE AUTO 0.04 K/mm3 (0.00-0.23); BASOPHILS PERCENT AUTO 0 % (0-2); EOSINOPHILS ABSOLUTE AUTO 0.12 K/mm3 (0.00-0.68); EOSINOPHILS PERCENT AUTO 1 % (0-6); Hemoglobin 7.6 g/dL (13.5-17.5); IMMATURE GRAN ABSOLUTE AUTO 0.41 K/mm3 (0.00-0.10); IMMATURE GRAN PERCENT AUTO 2 % (0-1); LYMPHOCYTES ABSOLUTE AUTO 1.82 K/mm3 (0.84-5.20); LYMPHOCYTES PERCENT AUTO 8 % (21-46); MONOCYTES ABSOLUTE AUTO 2.53 K/mm3 (0.16-1.47); MONOCYTES PERCENT AUTO 11 % (4-13); Mean Corpuscular HGB 24.2 pg (26.0-34.0); Mean Corpuscular HGB Conc 30.4 g/dL (31.5-36.5); Mean Corpuscular Volume 80 fL (80-100); Mean Platelet Volume 9.3 fL (9.1-12.4); NEUTROPHILS PERCENT AUTO 79 % (41-73); Platelet Count 463 K/mm3 (150-400); RDW Coefficient Variation 22.5 % (11.7-14.2); RDW Standard Deviation 64.4 fL (35.1-46.3); Red Blood Cell Count 3.14 M/mm3 (4.30-5.90); White Blood Cell Count 23.22 K/mm3 (4.00-11.30)
[2019-01-26 14:40] LABS: Vancomycin, Trough 20.3 ug/mL (5.0-10.0)
[2019-01-26 16:15] LABS: Percent Saturation 16.4 % (20.0-50.0)
--- NOTE | 2019-01-26 17:30 | NUR ---
PT AOX3 WITH SOME MINOR CONFUSION AT TIMES. PT HAS BEEN IN BED ALL DAY AND HAS STATED HE DOES NOT FEEL HE CAN GET OUT OF BED TODAY DUE TO KNEE PAIN. PAIN IS TREATED PER EMAR. PT COOPERATIVE OF CARE AND NO DISTRESS NOTED AT THIS TIME. WILL CONTINUE TO MONITOR.
--- NOTE | 2019-01-27 05:19 | NUR ---
VSS, AFEBRILE, A/O, SLEPT VERY LITTLE OVERNOC. PT IS DEFINATELY WATCHING THE CLOCK AND WILL STAY AWAKE TO ASK FOR HIS PAIN MEDICATION EXACTLY AT 4 HOUR INTERVALS. WOUND VAC IN PLACE AND FUNCTIONING WNL. NEPHROTOMY TUBE DRAINING WNL. NO SIGNIFICANT CHANGES NOTED. PT IS STABLE AT THIS TIME. WILL REPORT TO ON-COMING SHIFT.
--- NOTE | 2019-01-27 07:16 | NUR ---
Assumed care of patient with Karmen DUNCAN
[2019-01-27 08:22] LABS: BASOPHILS ABSOLUTE AUTO 0.06 K/mm3 (0.00-0.23); BASOPHILS PERCENT AUTO 0 % (0-2); EOSINOPHILS ABSOLUTE AUTO 0.18 K/mm3 (0.00-0.68); EOSINOPHILS PERCENT AUTO 1 % (0-6); Hematocrit 24.6 % (37.0-53.0); Hemoglobin 7.6 g/dL (13.5-17.5); IMMATURE GRAN ABSOLUTE AUTO 0.52 K/mm3 (0.00-0.10); IMMATURE GRAN PERCENT AUTO 2 % (0-1); LYMPHOCYTES ABSOLUTE AUTO 2.89 K/mm3 (0.84-5.20); LYMPHOCYTES PERCENT AUTO 12 % (21-46); MONOCYTES ABSOLUTE AUTO 2.53 K/mm3 (0.16-1.47); MONOCYTES PERCENT AUTO 11 % (4-13); Mean Corpuscular HGB 24.2 pg (26.0-34.0); Mean Corpuscular HGB Conc 30.9 g/dL (31.5-36.5); Mean Corpuscular Volume 78 fL (80-100); Mean Platelet Volume 9.6 fL (9.1-12.4); NEUTROPHILS ABSOLUTE AUTO 17.63 K/mm3 (1.96-9.15); NEUTROPHILS PERCENT AUTO 74 % (41-73); Platelet Count 483 K/mm3 (150-400); RDW Coefficient Variation 22.5 % (11.7-14.2); RDW Standard Deviation 62.9 fL (35.1-46.3); Red Blood Cell Count 3.14 M/mm3 (4.30-5.90); White Blood Cell Count 23.81 K/mm3 (4.00-11.30)
[2019-01-27 08:50] LABS: Albumin, Blood 1.3 g/dL (3.4-5.0); Anion Gap 8 mmol/L (6-16); Blood Urea Nitrogen 50 mg/dL (8-24); Bun/Creatinine Ratio 33.6 (12.0-20.0); CO2, Blood 25 mmol/L (21-32); Calcium, Blood 7.8 mg/dL (8.5-10.1); Chloride, Blood 105 mmol/L (98-108); Creatinine, Blood 1.49 mg/dL (0.60-1.20); Glomerular Filtration Rate 49 (60-); Glucose, Blood 100 mg/dL (70-99); Magnesium, Blood 1.8 mg/dL (1.6-2.4); Phosphorus, Blood 2.2 mg/dL (2.5-4.9); Sodium, Blood 138 mmol/L (136-145)
[2019-01-27 15:17] LABS: Vancomycin, Trough 23.7 ug/mL (5.0-10.0)
--- NOTE | 2019-01-27 15:26 | NUR ---
Vanco Stopped Pharmacy called to stop 1500 dose of Vanco; abx was stopped by this student nurse with Karmen DUNCAN.
[2019-01-27 17:34] LABS: Adenovirus F 40/41 Not Detected (NOT DETECT); Astrovirus Not Detected (NOT DETECT); Campylobacter Sp Not Detected (NOT DETECT); Cryptosporidium Not Detected (NOT DETECT); Cyclospora Cayetanensis Not Detected (NOT DETECT); E. Coli O157 Not Detected (NOT DETECT); Entamoeba Histolytica Not Detected (NOT DETECT); Enteroaggregative E. coli-EAEC Not Detected (NOT DETECT); Enteropathogenic E. coli-EPEC Not Detected (NOT DETECT); Enterotoxigenic E. coli-ETEC Not Detected (NOT DETECT); Giardia Lamblia Not Detected (NOT DETECT); Norovirus GI/GII Not Detected (NOT DETECT); Plesiomonas Shigelloides Not Detected (NOT DETECT); Rotavirus A Not Detected (NOT DETECT); Salmonella Sp Not Detected (NOT DETECT); Sapovirus Not Detected (NOT DETECT); Shiga Toxin-prod E. coli-STEC Not Detected (NOT DETECT); Shigella/Enteroin E. coli-EIEC Not Detected (NOT DETECT); Vibrio Cholerae Not Detected (NOT DETECT); Vibrio Sp Not Detected (NOT DETECT); Yersinia Enterocolitica Not Detected (NOT DETECT)
--- NOTE | 2019-01-27 18:04 | NUR ---
Shift Summary A/O x 3, pleasant and cooperative with care. Pt reported pain multiple times t/o shit, treated per EMAR. 2 per assist to repostion for comfort. Wound vac dressing changed by procedure nurse today. No other acute changes this shift.
--- NOTE | 2019-01-28 05:21 | NUR ---
VSS. AFEBRILE, A/O, PT SLEPT WELL OVERNOC, REDUCED DEMAND FOR PAIN MEDICATION NOTED. PT TOLERATING IV ABX W/OUT ADVERSE EFFECTS. NO SIGNIFICANT CHANGES NOTED, WILL REPORT TO ON-COMING SHIFT.
[2019-01-28 05:31] LABS: BASOPHILS ABSOLUTE AUTO 0.02 K/mm3 (0.00-0.23); BASOPHILS PERCENT AUTO 0 % (0-2); EOSINOPHILS PERCENT AUTO 0 % (0-6); Hematocrit 25.3 % (37.0-53.0); Hemoglobin 7.7 g/dL (13.5-17.5); IMMATURE GRAN ABSOLUTE AUTO 0.27 K/mm3 (0.00-0.10); IMMATURE GRAN PERCENT AUTO 2 % (0-1); LYMPHOCYTES ABSOLUTE AUTO 0.94 K/mm3 (0.84-5.20); LYMPHOCYTES PERCENT AUTO 5 % (21-46); MONOCYTES ABSOLUTE AUTO 0.18 K/mm3 (0.16-1.47); MONOCYTES PERCENT AUTO 1 % (4-13); Mean Corpuscular HGB 23.7 pg (26.0-34.0); Mean Corpuscular HGB Conc 30.4 g/dL (31.5-36.5); Mean Corpuscular Volume 78 fL (80-100); Mean Platelet Volume 9.9 fL (9.1-12.4); NEUTROPHILS ABSOLUTE AUTO 16.85 K/mm3 (1.96-9.15); NEUTROPHILS PERCENT AUTO 92 % (41-73); Platelet Count 550 K/mm3 (150-400); RDW Coefficient Variation 22.5 % (11.7-14.2); RDW Standard Deviation 62.6 fL (35.1-46.3); Red Blood Cell Count 3.25 M/mm3 (4.30-5.90); White Blood Cell Count 18.26 K/mm3 (4.00-11.30)
[2019-01-28 05:55] LABS: Alanine Aminotransfer (ALT/SGP 22 U/L (12-78); Albumin, Blood 1.5 g/dL (3.4-5.0); Albumin/Globulin Ratio 0.3 (0.8-1.8); Alk Phos 84 U/L (50-136); Anion Gap 8 mmol/L (6-16); Aspartate Aminotrans (AST/SGOT 11 U/L (12-37); Bilirubin, Total 0.2 mg/dL (0.1-1.0); Blood Urea Nitrogen 57 mg/dL (8-24); Bun/Creatinine Ratio 35.8 (12.0-20.0); CO2, Blood 25 mmol/L (21-32); Calcium, Blood 8.7 mg/dL (8.5-10.1); Chloride, Blood 105 mmol/L (98-108); Creatinine, Blood 1.59 mg/dL (0.60-1.20); Globulin, Blood 4.6 g/dL (2.2-4.0); Glomerular Filtration Rate 46 (60-); Glucose, Blood 167 mg/dL (70-99); Magnesium, Blood 2.1 mg/dL (1.6-2.4); Phosphorus, Blood 3.6 mg/dL (2.5-4.9); Potassium, Blood 5.1 mmol/L (3.5-5.5); Sodium, Blood 138 mmol/L (136-145); Total Protein, Blood 6.1 g/dL (6.4-8.2)
[2019-01-28 05:56] LABS: Vancomycin, Random 21.1 ug/mL
--- NOTE | 2019-01-28 17:13 | NUR ---
SHIFT SUMMARY PT A&OX4, FORGETFUL AT TIMES. PT RESTING IN BED FOR MAJORITY OF SHIFT, UP IN CHAIR WITH PHYSICAL THERAPY, 1 PERSON ASSIST BACK TO BED. PT REPORTS PAIN IN LOWER BACK, RIGHT FLANK AND RIGHT SHOULDER, MEDICATED PER EMAR. PT SOB WITH EXERTION, LS DIM T/O. PT DENIES N/V DURING SHIFT. PT HAS WOUND VAC ON RIGHT FLANK, DRESSING C/D/I, SUCTION SEALED. UROSTOMY IN PLACE, CHANGES BAG AND APPLICATIONS DUE TO LEAKING THROUGH, STOMA IS RED AND BEEFY. NEPHROSTOMY PATENT AND DRAINING. PT CONTINUE TO HAVE LIQUID STOOL DURING SHIFT. PT RECEIVING IV ANTIBIOTICS, IV LASIX AND IV STEROIDS DURING SHIFT. PT RECEIVING 1 UNIT OF PRBC, APPEARS TO BE TOLERATING, PT STATES HE "FEELS MUCH BETTER AFTER THE TRANSFUSION." HR ELEVATED THIS AFTERNOON, PT UP IN CHAIR AT THE TIME. OTHER VSS. NO OTHER ACUTE CHANGES NOTED DURING SHIFT, WILL CONTINUE TO MONITOR UNTIL REPORT GIVEN TO ONCOMING RN.
--- NOTE | 2019-01-29 04:23 | NUR ---
SHIFT SUMMARY PT A/O, SOME INTERMITTENT MILD CONFUSION. UROSTOMY TO L ABD. LIGHT YELLOW URINE. NEPHROSTOMY TO R, VERY LITTLE OUTPUT FROM NEPHROSTOMY THIS EVENING. TUBING FLUSHED. OUTPUT HAS A LOT OF SEDIMENT IN IT. WOUND VAC SITE ALSO TO R UPPER ABD. C/D/I. SMALL AMOUNT OF OUTPUT FROM IT WELL. SEROSANGUINOUS. COCCYX AND KARELY AREA RED AND EXCORIATED. MEPILEX IN PLACE. POWDER APPLIED TO KARELY AREA. APPEARS TO BE IMPROVING. PT HAD ONE EPISODE OF LIQUID STOOL THIS EVENING. CHRONIC GENERALIZED PAIN MORE SEVERE ON R FLANK AT WOUND SITE. MEDICATED WITH 10 MG ROXICODONE AND 50 MEQ FENTANYL. PT SLEPT OFF AND ON THROUGHOUT THE NIGHT. NO ACUTE CHANGES. BLOOD PRESSURE ELEVATED, ONE DOSE APRESOLINE GIVEN WITH IMPROVEMENT. OTHERWISE VSS. WILL CONTINUE TO MONITOR AND REPORT TO DAY RN.
[2019-01-29 05:57] LABS: BASOPHILS ABSOLUTE AUTO 0.02 K/mm3 (0.00-0.23); BASOPHILS PERCENT AUTO 0 % (0-2); EOSINOPHILS PERCENT AUTO 0 % (0-6); Hematocrit 26.7 % (37.0-53.0); Hemoglobin 8.5 g/dL (13.5-17.5); IMMATURE GRAN ABSOLUTE AUTO 0.35 K/mm3 (0.00-0.10); IMMATURE GRAN PERCENT AUTO 2 % (0-1); LYMPHOCYTES ABSOLUTE AUTO 1.05 K/mm3 (0.84-5.20); LYMPHOCYTES PERCENT AUTO 5 % (21-46); MONOCYTES ABSOLUTE AUTO 1.09 K/mm3 (0.16-1.47); MONOCYTES PERCENT AUTO 5 % (4-13); Mean Corpuscular HGB 24.4 pg (26.0-34.0); Mean Corpuscular HGB Conc 31.8 g/dL (31.5-36.5); Mean Corpuscular Volume 77 fL (80-100); Mean Platelet Volume 9.8 fL (9.1-12.4); NEUTROPHILS ABSOLUTE AUTO 19.66 K/mm3 (1.96-9.15); NEUTROPHILS PERCENT AUTO 89 % (41-73); NRBC ABSOLUTE 0.02 K/mm3 (0.00-0.02); NRBC Auto 0.1 /100 WBC (0.0-0.2); Platelet Count 615 K/mm3 (150-400); RDW Coefficient Variation 21.3 % (11.7-14.2); RDW Standard Deviation 58.5 fL (35.1-46.3); Red Blood Cell Count 3.49 M/mm3 (4.30-5.90); White Blood Cell Count 22.17 K/mm3 (4.00-11.30)
[2019-01-29 06:20] LABS: Alanine Aminotransfer (ALT/SGP 21 U/L (12-78); Albumin, Blood 1.5 g/dL (3.4-5.0); Albumin/Globulin Ratio 0.3 (0.8-1.8); Alk Phos 82 U/L (50-136); Anion Gap 10 mmol/L (6-16); Aspartate Aminotrans (AST/SGOT 11 U/L (12-37); Bilirubin, Total 0.2 mg/dL (0.1-1.0); Blood Urea Nitrogen 68 mg/dL (8-24); CO2, Blood 24 mmol/L (21-32); Calcium, Blood 8.3 mg/dL (8.5-10.1); Chloride, Blood 104 mmol/L (98-108); Creatinine, Blood 1.51 mg/dL (0.60-1.20); Globulin, Blood 4.5 g/dL (2.2-4.0); Glomerular Filtration Rate 48 (60-); Glucose, Blood 148 mg/dL (70-99); Magnesium, Blood 2.3 mg/dL (1.6-2.4); Phosphorus, Blood 3.5 mg/dL (2.5-4.9); Potassium, Blood 4.1 mmol/L (3.5-5.5); Sodium, Blood 138 mmol/L (136-145)
[2019-01-29] MEDS ORDERED: SERT25 PO (11:16)
[2019-01-29] MEDS ORDERED: CEFP200 PO (11:17)
[2019-01-29] MEDS ORDERED: CLOT10 UD (11:19)
[2019-01-29] MEDS ORDERED: Acidophilus La100 GM PO (11:20)
[2019-01-29] MEDS ORDERED: METR500 PO (11:22)
[2019-01-29] MEDS ORDERED: RISP.25 PO (11:23)
[2019-01-29] MEDS ORDERED: HYDRA25 PO (11:24)
--- NOTE | 2019-01-29 14:07 | NUR ---
DISCHARGE SUMMARY PT A&Ox3 FORGETFUL AT TIMES. PT RESTING IN BED DURING SHIFT, UP WITH 1 PERSON ASSIST WITH FWW. PT REPORTS 10/10 PAIN IN R FLANK, LOWER BACK AND RIGHT SHOULDER, MEDICATED PER EMAR. ADDITIONAL DOSE OF FENTANYL FOR WOUND VAC CHANGES ORDERED BY PHONE PER DR ANGEL. PT SOB WITH EXERTION, >90% ON RA. PT DENIES NAUSEA DURIGN SHIFT. WOUND VAC DRESSING REMOVED AND WET TO DRY DRESSING PLACED, NEW PICTURE IN CHART. COCCYX WOUNDS NEW DRESSING THIS AM, UPDATED PICTURE IN CHART. UROSTOMY AND NEPHROSTOMY IN PLACE; PATENT AND DRAINING. PT CONTINUES TO HAVE DIARRHEA, MEDICATED WITH IMMODIUM. PT TRANSITIONED TO PO ANTIBIOTICS. VSS. NO OTHER ACUTE CHANGES NOTED DURING SHIFT. PT LEFT ROOM VIA WHEELCHAIR AT 1400 WITH [employer]. ATTEMPTED TO CALL REPORT TO [facility], REQUESTS THAT WE CALL BACK AFTER SHIFT CHANGE. PT AND SPOUSE EDUCATED ON DISCHARGE AND FACILITY.
== END 2019-01-29 14:01 | DRG 853 ==
LOC: DELPENDDIS → ER 11:52 → MEDS 17:46 → ERHOLD 17:46 → MEDS 21:10 → ENPENDDIS 01-02 09:46 → MEDS 01-07 18:19 → ENPENDDIS 01-29 12:03 → MEDS 01-29 14:01
PROVIDERS: Family Medicine; Internal Medicine; Internal Medicine Nephrology; Nurse Practitioner Acute Care; Physician Assistant; ADMIT Hospitalist
PROC: 0T9330Z Drainage of Right Kidney Pelvis with Drainage Device, Percutaneous Approach (ICD-10-PCS; 2018-12-29)
PROC: 0W9F3ZX Drainage of Abdominal Wall, Percutaneous Approach, Diagnostic (ICD-10-PCS; principal; 2019-01-09)
PROC: 30233N1 Transfusion of Nonautologous Red Blood Cells into Peripheral Vein, Percutaneous Approach (ICD-10-PCS; 2019-01-15)
PROC: 0W9F0ZZ Drainage of Abdominal Wall, Open Approach (ICD-10-PCS; 2019-01-16)
PROC: 2W05X6Z Change Pressure Dressing on Back (ICD-10-PCS; 2019-01-18)
DX: A41.51 Sepsis due to Escherichia coli [E. coli] (principal); R65.21 Severe sepsis with septic shock; G93.41 Metabolic encephalopathy; J96.01 Acute respiratory failure with hypoxia; N15.1 Renal and perinephric abscess; N17.9 Acute kidney failure, unspecified; N39.0 Urinary tract infection, site not specified; N13.2 Hydronephrosis with renal and ureteral calculous obstruction; B37.0 Candidal stomatitis; E87.2 Acidosis; N25.81 Secondary hyperparathyroidism of renal origin; N12 Tubulo-interstitial nephritis, not specified as acute or chronic; I25.2 Old myocardial infarction; J44.9 Chronic obstructive pulmonary disease, unspecified; Z85.51 Personal history of malignant neoplasm of bladder; Z95.5 Presence of coronary angioplasty implant and graft; E86.0 Dehydration; E78.5 Hyperlipidemia, unspecified; Z93.6 Other artificial openings of urinary tract status; Z79.02 Long term (current) use of antithrombotics/antiplatelets; F32.9 Major depressive disorder, single episode, unspecified; G89.4 Chronic pain syndrome; I25.10 Atherosclerotic heart disease of native coronary artery without angina pectoris; B96.89 Other specified bacterial agents as the cause of diseases classified elsewhere; R26.89 Other abnormalities of gait and mobility; R41.0 Disorientation, unspecified; N18.3 Chronic kidney disease, stage 3 (moderate); D63.1 Anemia in chronic kidney disease; Z95.1 Presence of aortocoronary bypass graft; E88.09 Other disorders of plasma-protein metabolism, not elsewhere classified; E83.42 Hypomagnesemia; E86.9 Volume depletion, unspecified; N99.89 Other postprocedural complications and disorders of genitourinary system; R31.9 Hematuria, unspecified; E87.5 Hyperkalemia; Z87.891 Personal history of nicotine dependence; Z90.5 Acquired absence of kidney; D47.3 Essential (hemorrhagic) thrombocythemia; M25.469 Effusion, unspecified knee
CPT/HCPCS: 36415; 36600; 49406; 50432; 71045; 71046; 74176; 76705; 77012; 80048; 80053; 80069; 80202; 81001; 82728; 82803; 83540; 83550; 83605; 83735; 84100; 84132; 84145; 84550; 85014; 85018; 85025; 85610; 85651; 85730; 86850; 86900; 86901; 86923; 87040; 87070; 87075; 87076; 87077; 87086; 87185; 87186; 87205; 87507; 93005; 93010; 94640; 94667; 94760; 96361; 96365; 96375; 96376; 97110; 97162; 97530; 99152; 99153; 99285-25; A9270-GY; C1729; C1751; C1769; J0360; J0692; J0696; J0881; J1170; J1644; J1650; J1940; J2185; J2250; J2405; J2543; J2704; J2916; J2930; J3010; J3370; J3475; J3480; J7030; J7040; J7050; J7060; J7070; J7120; P9016; P9046; Q9967

== ENCOUNTER 2019-04-11 14:40 | Emergency (ER) | payer MEDICARE ==
[~2019-04-11] VITALS: Ht 170.2 cm; Wt 79.4 kg
[~2019-04-11 14:40] MED LIST changes: +AMLO5 PO; +Bactrim 400-801 EACH PO; +CEFP200 PO; +CLOT10 BC; +LEVFLO500 PO; +METR500 PO; +RISP.25 PO; +SERT25 PO; +SERT50 PO
[2019-04-11 16:10] LABS: BASOPHILS PERCENT AUTO 1 % (0-2); EOSINOPHILS ABSOLUTE AUTO 0.32 K/mm3 (0.00-0.68); EOSINOPHILS PERCENT AUTO 2 % (0-6); Hematocrit 32.6 % (37.0-53.0); Hemoglobin 9.7 g/dL (13.5-17.5); IMMATURE GRAN ABSOLUTE AUTO 0.11 K/mm3 (0.00-0.10); IMMATURE GRAN PERCENT AUTO 1 % (0-1); LYMPHOCYTES ABSOLUTE AUTO 2.53 K/mm3 (0.84-5.20); LYMPHOCYTES PERCENT AUTO 19 % (21-46); MONOCYTES ABSOLUTE AUTO 1.57 K/mm3 (0.16-1.47); MONOCYTES PERCENT AUTO 12 % (4-13); Mean Corpuscular HGB 25.1 pg (26.0-34.0); Mean Corpuscular HGB Conc 29.8 g/dL (31.5-36.5); Mean Corpuscular Volume 84 fL (80-100); Mean Platelet Volume 9.5 fL (9.1-12.4); NEUTROPHILS ABSOLUTE AUTO 8.89 K/mm3 (1.96-9.15); NEUTROPHILS PERCENT AUTO 66 % (41-73); Platelet Count 430 K/mm3 (150-400); RDW Coefficient Variation 18.1 % (11.7-14.2); RDW Standard Deviation 55.6 fL (35.1-46.3); Red Blood Cell Count 3.87 M/mm3 (4.30-5.90); White Blood Cell Count 13.52 K/mm3 (4.00-11.30)
[2019-04-11 16:27] LABS: Bun/Creatinine Ratio 28.3 (12.0-20.0); Calcium, Blood 9.4 mg/dL (8.5-10.1); Creatinine, Blood 1.45 mg/dL (0.60-1.20); Potassium, Blood 4.2 mmol/L (3.5-5.5)
[2019-04-11 17:16] LABS: Source, Urine Urostomy Bag
[2019-04-11 17:24] LABS: Bilirubin, Urine Neg (Neg); Blood, Urine 5+ (Neg); Glucose Qualitative, Urine Neg (Neg); Ketones, Urine Neg (Neg); Leukocyte Esterase, Urine 3+ (Neg); Nitrite, Urine Neg (Neg); Protein, Urine 3+ (Neg); Urobilinogen, Urine NORM (Normal); pH, Urine 6.5 (5.0-8.0)
[2019-04-11] MEDS ORDERED: CYAN500 PO (17:27)
[2019-04-11] MEDS ORDERED: ALBU90OI6 INH (17:27)
[2019-04-11] MEDS ORDERED: FERSU300 PO (17:28)
[2019-04-11] MEDS ORDERED: Cipro500 MG PO (17:29)
[2019-04-11 17:54] LABS: Color, Urine Yellow (P-Yellow)
[2019-04-11 17:57] LABS: Appearance, Urine Cloudy (Clear)
[2019-04-11 17:59] LABS: Bacteria Many /hpf; Red Blood Cells, Urine TNTC /hpf (0-2); Squamous Epithelial Cells Mod /hpf (Few); White Blood Cells, Urine TNTC /hpf (0-5)
[2019-04-11 18:03] LABS: Yeast/Fungi Urine Few /hpf
== END 2019-04-11 18:40 | disposition home or self-care (01) ==
LOC: ER 14:40
PROVIDERS: Emergency Medicine
DX: T81.49XA Infection following a procedure, other surgical site, initial encounter (principal); L03.312 Cellulitis of back [any part except buttock and flank]; Z88.8 Allergy status to other drugs, medicaments and biological substances; Z79.899 Other long term (current) drug therapy; I25.2 Old myocardial infarction; J44.9 Chronic obstructive pulmonary disease, unspecified; Z87.891 Personal history of nicotine dependence
CPT/HCPCS: 73562-LT; 80048; 81001; 85025; 87077; 87086; 87186; 99283-25

== ENCOUNTER 2019-09-07 06:37 | Day surgery (SDC) | payer MEDICARE ==
[~2019-09-07] VITALS: Ht 170.2 cm; Wt 84.0 kg
[~2019-09-07 06:37] MED LIST changes: +ALBU90OI6 INH; +CYAN500 PO; +Cipro500 MG PO; +FERSU300 PO
--- NOTE | 2019-09-07 07:18 | NUR ---
PT STATES LAST ATE YESTERDAY AND LAST HAD SIPS OF WATER THIS AM.
--- NOTE | 2019-09-07 08:50 | NUR ---
PT TO RECOVERY ROOM POST PROCEDURE. PT AWKAE, ORIENTED, PLEASENT AND COOPERATIVE. PT DENIES PAIN AT NEPHROSTOMY SITE. MONITOR SR WITH 1ST DEGREE 60'S, B/P 131/68, AFEBRILE, SPO2 95% RA. R FLANK NEPHROSTOMY SITE NO REDNESS, SWELLING OR DRAINAGE, SECURE; DRAINING BLOOD TINGED URINE. PT'S AT BEDSIDE, ATTENTIVE.
--- NOTE | 2019-09-07 09:40 | NUR ---
PT ATE BREAKFAST WITHOUT PROBLEM.
--- NOTE | 2019-09-07 10:00 | NUR ---
PT DRESSED SELF, IV REMOVED-CANNULA INTACT. NEPHROSTOMY SITE NO REDNESS, SWELLING OR DRAINAGE; 100CC BLOOD-TINGED URINE EMPTIED.
--- NOTE | 2019-09-07 10:10 | NUR ---
PT RECEIVED DISCHARGE INSTRUCTIONS, MED LIST AND "AFTER CARE" INSTRUCTIONS; VERBALIZED GOOD UNDERSTANDING. PT LEFT FACILITY WITH WIVE VIA WALKER, CONDITION STABLE.
== END 2019-09-07 10:33 | disposition home or self-care (01) ==
LOC: MHTC 06:37
DX: Z43.6 Encounter for attention to other artificial openings of urinary tract (principal); N20.0 Calculus of kidney; I11.0 Hypertensive heart disease with heart failure; I50.9 Heart failure, unspecified; I73.9 Peripheral vascular disease, unspecified; G62.9 Polyneuropathy, unspecified; G89.29 Other chronic pain; M54.9 Dorsalgia, unspecified; I25.10 Atherosclerotic heart disease of native coronary artery without angina pectoris; I25.2 Old myocardial infarction; J44.9 Chronic obstructive pulmonary disease, unspecified; Z95.1 Presence of aortocoronary bypass graft; Z88.6 Allergy status to analgesic agent; Z79.02 Long term (current) use of antithrombotics/antiplatelets; Z79.899 Other long term (current) drug therapy; Z86.73 Personal history of transient ischemic attack (TIA), and cerebral infarction without residual deficits; Z95.5 Presence of coronary angioplasty implant and graft
CPT/HCPCS: 50435; 99152; C1729; C1769; C1887; J2250; J3010; J7030; J7040; Q9967

== ENCOUNTER → 2019-09-12 | Outpatient (CLI) | payer MEDICARE ==
[2019-09-12 18:23] LABS: Bilirubin, Urine Neg (Neg); Blood, Urine 4+ (Neg); Glucose Qualitative, Urine Neg (Neg); Ketones, Urine Neg (Neg); Leukocyte Esterase, Urine 3+ (Neg); Nitrite, Urine Pos (Neg); Protein, Urine 3+ (Neg); Urobilinogen, Urine NORM (Normal); pH, Urine 6.5 (5.0-8.0)
[2019-09-12 18:41] LABS: Appearance, Urine Cloudy (Clear); Color, Urine Yellow (P-Yellow)
[2019-09-12 18:43] LABS: Red Blood Cells, Urine 25-50 /hpf (0-2); White Blood Cells, Urine TNTC /hpf (0-5)
[2019-09-12 18:44] LABS: Bacteria Many /hpf; Squamous Epithelial Cells Few /hpf (Few)
== END | disposition home or self-care (01) ==
LOC: LAB SHORT 15:30 → LAB 15:30 → EDSTATUS 08-11 14:30 → LAB FUT 08-11 14:30
PROVIDERS: Urology
DX: N20.0 Calculus of kidney (principal)
CPT/HCPCS: 81001

== ENCOUNTER → 2021-11-21 | Outpatient (CLI) | payer MEDICARE | LOC: LAB 19:13 → LAB SHORT 19:13 | DX: L97.509 Non-pressure chronic ulcer of other part of unspecified foot with unspecified severity (principal) | CPT/HCPCS: 87070; 87075; 87077; 87186; 87205 ==

== ENCOUNTER → 2021-12-04 | Outpatient (CLI) | payer MEDICARE | END | disposition home or self-care (01) | LOC: LAB 16:40 → LAB SHORT 16:40 | DX: L03.115 Cellulitis of right lower limb (principal) | CPT/HCPCS: 87070; 87077; 87186; 87205 ==

== ENCOUNTER → 2022-01-12 | Outpatient (CLI) | payer MEDICARE ==
[2022-01-12 20:18] LABS: Anion Gap 10 mmol/L (6-16); Blood Urea Nitrogen 74 mg/dL (8-24); Bun/Creatinine Ratio 27.4 (12.0-20.0); CHOL/HDL RATIO 3.8; CO2, Blood 19 mmol/L (21-32); Chloride, Blood 110 mmol/L (98-108); Cholesterol 150 mg/dL (50-200); Glomerular Filtration Rate 23 (60-); Glucose, Blood 114 mg/dL (70-99); HDL Cholesterol 39 mg/dL (>39); LDL/HDL RATIO 2.3; Low Density Lipoprotein Chol 91 mg/dL (0-110); Potassium, Blood 3.7 mmol/L (3.5-5.5); Sodium, Blood 139 mmol/L (136-145); Triglycerides 101 mg/dL (30-160); Very Low Density Lipoprot Chol 20 mg/dL (6-32)
== END | disposition home or self-care (01) ==
LOC: LAB SHORT 17:10
PROVIDERS: Nurse Practitioner Family
DX: E78.5 Hyperlipidemia, unspecified (principal); E21.1 Secondary hyperparathyroidism, not elsewhere classified
CPT/HCPCS: 80048; 80061; 84443

== ENCOUNTER 2022-06-06 20:08 | Inpatient (IN) | payer MEDICARE ==
[~2022-06-06] VITALS: Ht 177.8 cm; Wt 73.5 kg
[2022-06-06 20:30] LABS: Calcium, Ionized (POC) 1.12 mmol/L (1.10-1.46); Chloride (POC) 111 mmol/L (98-108); Creatinine (POC) 4.1 mg/dL (0.8-1.3); Glucose (ISTAT POC) 164 mg/dL (70-99); Potassium (POC) 4.5 mmol/L (3.5-5.5); Sodium (POC) 139 mmol/L (135-148); Total CO2 (POC) 17 mmol/L (21-32)
[2022-06-06 20:33] LABS: BASOPHILS ABSOLUTE AUTO 0.06 K/mm3 (0.00-0.23); BASOPHILS PERCENT AUTO 0 % (0-2); EOSINOPHILS ABSOLUTE AUTO 0.03 K/mm3 (0.00-0.68); EOSINOPHILS PERCENT AUTO 0 % (0-6); Hemoglobin 14.3 g/dL (13.5-17.5); IMMATURE GRAN ABSOLUTE AUTO 0.21 K/mm3 (0.00-0.10); IMMATURE GRAN PERCENT AUTO 2 % (0-1); LYMPHOCYTES ABSOLUTE AUTO 4.55 K/mm3 (0.84-5.20); LYMPHOCYTES PERCENT AUTO 32 % (21-46); MONOCYTES ABSOLUTE AUTO 1.19 K/mm3 (0.16-1.47); MONOCYTES PERCENT AUTO 8 % (4-13); Mean Corpuscular HGB 27.6 pg (26.0-34.0); Mean Corpuscular HGB Conc 31.1 g/dL (31.5-36.5); Mean Corpuscular Volume 89 fL (80-100); Mean Platelet Volume 9.9 fL (9.1-12.4); NEUTROPHILS ABSOLUTE AUTO 8.12 K/mm3 (1.96-9.15); NEUTROPHILS PERCENT AUTO 57 % (41-73); Platelet Count 317 K/mm3 (150-400); RDW Standard Deviation 52.4 fL (35.1-46.3); Red Blood Cell Count 5.19 M/mm3 (4.30-5.90); White Blood Cell Count 14.16 K/mm3 (4.00-11.30)
[2022-06-06 20:58] LABS: Alanine Aminotransfer (ALT/SGP 23 U/L (12-78); Albumin, Blood 2.5 g/dL (3.4-5.0); Albumin/Globulin Ratio 0.5 (0.8-1.8); Alk Phos 79 U/L (50-136); Anion Gap 14 mmol/L (6-16); Aspartate Aminotrans (AST/SGOT 39 U/L (12-37); Bilirubin, Total 0.4 mg/dL (0.1-1.0); Blood Urea Nitrogen 88 mg/dL (8-24); Bun/Creatinine Ratio 21.8 (12.0-20.0); CO2, Blood 16 mmol/L (21-32); Calcium, Blood 8.3 mg/dL (8.5-10.1); Chloride, Blood 109 mmol/L (98-108); Creatinine, Blood 4.03 mg/dL (0.60-1.20); Glomerular Filtration Rate 11 (60-); Glucose, Blood 166 mg/dL (70-99); Potassium, Blood 4.4 mmol/L (3.5-5.5); Sodium, Blood 139 mmol/L (136-145); Total Protein, Blood 7.5 g/dL (6.4-8.2)
[2022-06-06 21:17] LABS: Influenza A, PCR NEGATIVE (NEGATIVE); Influenza B, PCR NEGATIVE (NEGATIVE); Resp Syncytial Virus, PCR NEGATIVE (NEGATIVE)
[2022-06-06 21:32] LABS: SARS-Cov-2 (COVID-19) PCR, MMC POSITIVE (NEGATIVE)
[2022-06-06 21:35] LABS: Base Excess Venous -17.9 mmol/L; Bicarbonate Venous 11.5 mmol/L (24.0-30.0); PCO2 Venous 53.7 mmHg (38-42)
[2022-06-06 23:04] LABS: Magnesium, Blood 2.2 mg/dL (1.6-2.4)
[2022-06-07 02:03] LABS: PCO2 Arterial 43.3 mmHg (35-45); PO2 Arterial 112 mmHg (80-100)
[2022-06-07 02:04] LABS: pH Blood Arterial 7.08 (7.35-7.45)
[2022-06-07 03:32] LABS: U Amphetamine Screen Not Detected; U Barbituate Screen Not Detected; U Benzodiazapine Screen Not Detected; U Buprenorphine Screen DETECTED; U Cannabinoids Screen Not Detected; U Cocaine Screen Not Detected; U Methadone Screen Not Detected; U Methamphetamine Screen Not Detected; U Opiates Screen Not Detected; U Oxycodone Screen Not Detected; U Phencyclidine Screen Not Detected; U Propoxyphene Screen Not Detected
[2022-06-07 04:21] LABS: BASOPHILS ABSOLUTE AUTO 0.02 K/mm3 (0.00-0.23); BASOPHILS PERCENT AUTO 0 % (0-2); EOSINOPHILS PERCENT AUTO 0 % (0-6); Hematocrit 41.9 % (37.0-53.0); Hemoglobin 12.7 g/dL (13.5-17.5); IMMATURE GRAN PERCENT AUTO 1 % (0-1); LYMPHOCYTES ABSOLUTE AUTO 0.14 K/mm3 (0.84-5.20); LYMPHOCYTES PERCENT AUTO 1 % (21-46); MONOCYTES ABSOLUTE AUTO 0.41 K/mm3 (0.16-1.47); MONOCYTES PERCENT AUTO 3 % (4-13); Mean Corpuscular HGB 27.1 pg (26.0-34.0); Mean Corpuscular HGB Conc 30.3 g/dL (31.5-36.5); Mean Corpuscular Volume 89 fL (80-100); Mean Platelet Volume 10.3 fL (9.1-12.4); NEUTROPHILS PERCENT AUTO 95 % (41-73); Platelet Count 314 K/mm3 (150-400); RDW Coefficient Variation 15.9 % (11.7-14.2); RDW Standard Deviation 52.4 fL (35.1-46.3); Red Blood Cell Count 4.69 M/mm3 (4.30-5.90); White Blood Cell Count 14.77 K/mm3 (4.00-11.30)
[2022-06-07 04:49] LABS: Albumin, Blood 2.2 g/dL (3.4-5.0); Albumin/Globulin Ratio 0.5 (0.8-1.8); Bilirubin, Total 0.4 mg/dL (0.1-1.0); Calcium, Blood 7.8 mg/dL (8.5-10.1); Creatinine, Blood 4.1 mg/dL (0.60-1.20); Globulin, Blood 4.2 g/dL (2.2-4.0); Potassium, Blood 3.3 mmol/L (3.5-5.5); Total Protein, Blood 6.4 g/dL (6.4-8.2)
--- NOTE | 2022-06-07 05:58 | NUR ---
PT. CAME IN OVERNIGHT WITH THE POSSIBILITY OF BEING INTUBATED AND NEEDING PRESSORS. PT. STABILIZED ON THE BIPAP AND IS NOW SATTING WELL AT 94% ON SETTINGS AT 18/5. PT. HAD A CENTRAL LINE PLACED FOR PRESSORS, BUT PRESSORS HAVE SINCE BEEN TURNED OFF AND PT. IS MAINTAINING MAPS ABOVE 80S. PT. HAS A UROSTOMY THAT IS PATENT AND DRAINING INTO A PICHARDO BAG. PT. CAME UP WEARING A CONDOM CATHETER THAT WAS VERY TIGHT AROUND HIS PENIS AND IT IS NOW RED AND SWOLLEN, AND PT. HAS BRUISING ALL OVER BODY. PT. HAS HAD RUNS OF VTACH OVERNIGHT THAT DOES NOT SUSTAIN.
--- NOTE | 2022-06-07 07:00 | NUR ---
TOOK OVER CARE OF PT AT 0700. PT ON BIPAP 04/08 35%, BICARB GTT RUNNING
[2022-06-07 11:29] LABS: Source, Urine Urostomy Bag
[2022-06-07 11:49] LABS: Alanine Aminotransfer (ALT/SGP 21 U/L (12-78); Albumin, Blood 2.3 g/dL (3.4-5.0); Albumin/Globulin Ratio 0.5 (0.8-1.8); Alk Phos 76 U/L (50-136); Anion Gap 15 mmol/L (6-16); Aspartate Aminotrans (AST/SGOT 35 U/L (12-37); Bilirubin, Total 0.3 mg/dL (0.1-1.0); Blood Urea Nitrogen 87 mg/dL (8-24); CO2, Blood 18 mmol/L (21-32); Calcium, Blood 7.8 mg/dL (8.5-10.1); Chloride, Blood 112 mmol/L (98-108); Creatinine, Blood 3.95 mg/dL (0.60-1.20); Globulin, Blood 4.4 g/dL (2.2-4.0); Glomerular Filtration Rate 15 (60-); Glucose, Blood 152 mg/dL (70-99); Magnesium, Blood 2.4 mg/dL (1.6-2.4); Phosphorus, Blood 5.2 mg/dL (2.5-4.9); Potassium, Blood 3.5 mmol/L (3.5-5.5); Sodium, Blood 145 mmol/L (136-145); Total Protein, Blood 6.7 g/dL (6.4-8.2); Vancomycin, Random 22.4 ug/mL
[2022-06-07 11:51] LABS: CPK Creatine Kinase 93 U/L (39-308)
[2022-06-07 11:58] LABS: Bilirubin, Urine Neg (Neg); Blood, Urine 5+ (Neg); Glucose Qualitative, Urine Neg (Neg); Ketones, Urine 1+ (Neg); Leukocyte Esterase, Urine 3+ (Neg); Nitrite, Urine Pos (Neg); Protein, Urine 3+ (Neg); Urobilinogen, Urine NORM (Normal)
[2022-06-07 11:59] LABS: Appearance, Urine Cloudy (Clear); Color, Urine Pale Yellow (P-Yellow)
[2022-06-07 12:01] LABS: Bacteria Many /hpf; Squamous Epithelial Cells Few /hpf (Few); Triple Phosphate Crystals Mod /hpf
[2022-06-07 12:22] LABS: PCO2 Arterial 38.7 mmHg (35-45); PO2 Arterial 82.5 mmHg (80-100); pH Blood Arterial 7.21 (7.35-7.45)
[2022-06-07 21:07] LABS: CPK Creatine Kinase 147 U/L (39-308)
--- NOTE | 2022-06-08 05:33 | NUR ---
SHIFT SUMMARY: PT. DID WELL OVERNIGHT, HE IS MORE ALERT THAT LAST NIGHT AND IS STILL VERY SLEEPY BUT ABLE TO ANSWER QUESTIONS APPROPRIATELY AND FOLLOWS COMMANDS. PT. IS STILL SATTING WELL ON BIPAP AND HAS STABLE BPS AND HR THROUGHOUT THE NIGHT. RHYTHM CHANGES OCCURED OVERNIGHT WITH FREQUENT PVCS, BUT IT SEEMS PT. IS NO LONGER HAVING RUNS OF VTACH. PT'S UROSTOMY IS STILL PATENT AND DRAINING WELL. PT. PUT OUT 1150 OVERNIGHT. PT. IS SALINE LOCKED, HAS NO COMPLAINTS OF PAIN AND IS RESTING COMFORTABLY AT THIS TIME.
[2022-06-08 06:12] LABS: BASOPHILS ABSOLUTE AUTO 0.01 K/mm3 (0.00-0.23); BASOPHILS PERCENT AUTO 0 % (0-2); EOSINOPHILS PERCENT AUTO 0 % (0-6); Hemoglobin 11.3 g/dL (13.5-17.5); IMMATURE GRAN ABSOLUTE AUTO 0.08 K/mm3 (0.00-0.10); IMMATURE GRAN PERCENT AUTO 1 % (0-1); LYMPHOCYTES PERCENT AUTO 3 % (21-46); MONOCYTES ABSOLUTE AUTO 0.73 K/mm3 (0.16-1.47); MONOCYTES PERCENT AUTO 7 % (4-13); Mean Corpuscular HGB 27.4 pg (26.0-34.0); Mean Corpuscular HGB Conc 32.3 g/dL (31.5-36.5); Mean Corpuscular Volume 85 fL (80-100); Mean Platelet Volume 10.5 fL (9.1-12.4); NEUTROPHILS ABSOLUTE AUTO 8.91 K/mm3 (1.96-9.15); NEUTROPHILS PERCENT AUTO 89 % (41-73); Platelet Count 293 K/mm3 (150-400); RDW Coefficient Variation 15.5 % (11.7-14.2); RDW Standard Deviation 48.3 fL (35.1-46.3); Red Blood Cell Count 4.13 M/mm3 (4.30-5.90); White Blood Cell Count 10.03 K/mm3 (4.00-11.30)
[2022-06-08 06:16] LABS: Anion Gap 12 mmol/L (6-16); Blood Urea Nitrogen 90 mg/dL (8-24); Bun/Creatinine Ratio 22.9 (12.0-20.0); CO2, Blood 20 mmol/L (21-32); Calcium, Blood 7.6 mg/dL (8.5-10.1); Chloride, Blood 116 mmol/L (98-108); Creatinine, Blood 3.93 mg/dL (0.60-1.20); Glomerular Filtration Rate 15 (60-); Glucose, Blood 127 mg/dL (70-99); Phosphorus, Blood 4.5 mg/dL (2.5-4.9); Sodium, Blood 148 mmol/L (136-145); Vancomycin, Random 15.8 ug/mL
--- NOTE | 2022-06-08 08:02 | NUR ---
CARE OF PT ASSUMED AT 0700. PT SLEEPING ON BIPAP AT 18/10 30%, RESP RATE HIGH 20'S. PT AROSES TO VOICE AND ATTEMPTS TO OPEN EYES TO COMMAND. ANSWERS YES TO PAIN, MOANS WITH ANY CARE, ANSWERS "[place]" TO MOST QUESTIONS; PT VERY UNGA PER REPORT. BP STABLE, SINUS RHYTHM W FREQUESNT PAC/PVC'S. ECHO ORDERED. SORE TO BRIDGE OF NOSE FROM BIAP, GEL PAD PLACED. BIPAP REMOVED FOR ORAL CARE W 4L O2 VIA N/C; PT JERRICA BREAK WELL BUT IS NOT AWAKE/ALERT ENOUGH TO SAFELY TAKE PO. PT IMMEDIATELY FALLS BACK TO SLEEP AFTER CARE/QUESTIONS.
--- NOTE | 2022-06-08 12:25 | NUR ---
PT GIVEN FULL BED BATH. PT GIVEN BREAK DURING BATH AND DID NOT TOLERATE BEING OFF BIPAP. SEVERE DYSPNEA NOTED W ACC. MUSCLE USE. BIPAP REPLACED. BREAKDOWN TO BUTTOCKS NOTED UNDER MEPILEX PAD. AREA PURPLE, SOME OF THE PURPLE AREAS DID JORDAN. SMALL OPEN AREA RIGHT OVER COCCYX. PICTURES TAKEN. NEW MEPILEX PLACED, WILL CONTINUE TO TURN Q2HRS AND HAVE PT COMPLETELY OFF BOTTOM. UROSTOMY/STOMA LEAKING. BAG REINFORCED WE DO NOT CARRY THE BAG HE IS USING. MAY TRY AND FIT A FLEXISEAL BAG IT HAS THE HTDOCOLLIOD ADHESIVE. PT MOANED AND CRIED OUT DURING ENTIRE BATH, SKIN VERY FRAGILE. DR SALAS NOTIFIED. KURT WITH PALLIATIVE CARE CALLED AND UPDATED WELL. TYLENOL MA ORDERED FOR PAIN. DOBBHOFF TO BE PLACED FOR FEEDING.
--- NOTE | 2022-06-08 12:26 | NUR ---
Pt anxious and uncomfortable. Review of potential medications with physician and nursing. Judicous use of tylenol for pain. Will monitor for worsening air hunger. pt very deconditioned and frail. will be in tonight will review prognosis. kps score is 30%. Pt may be better served with hospice care.
--- NOTE | 2022-06-08 14:27 | NUR ---
DOBHOFF PLACED TO RIGHT NARE USING VISCOUS LIDOCAINE, TUBE PLACED W/O DIFFICULTY. PLACEMENT VARIFIED BY CHEST XRAY. TUBE FEEDS TO BE STARTED. TYLENOL MT GIVEN FOR PAIN. UROSTOMY BAG HAS NOT LEAKED SINCE IT WAS REINFORCED AT 1000.
[2022-06-08] MEDS ORDERED: BUDESONIDE0.5 MG/2 M INH (19:53)
[2022-06-08] MEDS ORDERED: PLAVIX75 MG PO (19:54)
[2022-06-08] MEDS ORDERED: DULCOLAX5 MG PO (19:56)
[2022-06-08] MEDS ORDERED: [UNRECOGNIZED DRUG - CODE] PO (19:57)
[2022-06-08] MEDS ORDERED: AMLODIPINE BESY10 MG PO (19:58)
[2022-06-08] MEDS ORDERED: ANORO ELLIPTA1 EAC1 (19:59)
[2022-06-08] MEDS ORDERED: [UNRECOGNIZED DRUG - CODE] PO (20:01)
[2022-06-08] MEDS ORDERED: Betamethasone V60 ML (20:01)
[2022-06-08] MEDS ORDERED: FUROSEMIDE20 MG PO (20:01)
[2022-06-08] MEDS ORDERED: BUPRENORPHINE HC2 M1 SL (20:02)
--- NOTE | 2022-06-08 22:20 | NUR ---
ASSUMED CARE AT 1900 PATIENT RESPONDS TO VERBAL STIMULI, VERY LETHARGIC. ORIENTED TO FOLLOWING CAMMANDS AND APPEARED TO RECOGNIZE HIS WHO WAS AT BEDSIDE AT START OF SHIFT. WHEN ASKED ANY OTHER QUESTIONS PATIENT KEPT REPEATING I DONT KNOW. 02 SATS 94% ON BIPAP 12/8 FI02 30%. RR 20-28. DOES NOT TOLERATE BREAKS FROM BIPAP WELL. HR SR 80s WITH FREQUENT PVCs/PACs. BP STABLE. DOBHOFF WITH TUBE FEED AT 20 MLS/HR WILL INCREASE TO GOAL RATE PER ORDERS, 30 MLS FLUSHES Q4 HOURS. UROSTOMY WITH YELLOW, CLOUDY, PURULENT OUTPUT, BAG DRAINING. TO BRING IN MORE UROSTOMY APPLIANCES. PATIENT REPOSITIONED. COMPLETED ADMIT HISTORY AND MEDICATIONS WITH . SEE SHIFT ASSESSMENT FOR MORE INFORMATION.
[2022-06-09 05:09] LABS: BASOPHILS ABSOLUTE AUTO 0.02 K/mm3 (0.00-0.23); BASOPHILS PERCENT AUTO 0 % (0-2); EOSINOPHILS PERCENT AUTO 0 % (0-6); Hematocrit 35.5 % (37.0-53.0); Hemoglobin 11.6 g/dL (13.5-17.5); IMMATURE GRAN ABSOLUTE AUTO 0.14 K/mm3 (0.00-0.10); IMMATURE GRAN PERCENT AUTO 1 % (0-1); LYMPHOCYTES ABSOLUTE AUTO 0.25 K/mm3 (0.84-5.20); LYMPHOCYTES PERCENT AUTO 1 % (21-46); MONOCYTES ABSOLUTE AUTO 1.04 K/mm3 (0.16-1.47); MONOCYTES PERCENT AUTO 6 % (4-13); Mean Corpuscular HGB 27.9 pg (26.0-34.0); Mean Corpuscular HGB Conc 32.7 g/dL (31.5-36.5); Mean Corpuscular Volume 85 fL (80-100); Mean Platelet Volume 10.3 fL (9.1-12.4); NEUTROPHILS ABSOLUTE AUTO 16.41 K/mm3 (1.96-9.15); NEUTROPHILS PERCENT AUTO 92 % (41-73); NRBC ABSOLUTE 0.02 K/mm3 (0.00-0.02); NRBC Auto 0.1 /100 WBC (0.0-0.2); Platelet Count 282 K/mm3 (150-400); RDW Coefficient Variation 15.9 % (11.7-14.2); RDW Standard Deviation 49.3 fL (35.1-46.3); Red Blood Cell Count 4.16 M/mm3 (4.30-5.90); White Blood Cell Count 17.86 K/mm3 (4.00-11.30)
[2022-06-09 05:34] LABS: Albumin, Blood 2.2 g/dL (3.4-5.0); Anion Gap 8 mmol/L (6-16); Blood Urea Nitrogen 86 mg/dL (8-24); Bun/Creatinine Ratio 23.6 (12.0-20.0); CO2, Blood 22 mmol/L (21-32); Calcium, Blood 7.6 mg/dL (8.5-10.1); Chloride, Blood 120 mmol/L (98-108); Creatinine, Blood 3.64 mg/dL (0.60-1.20); Glomerular Filtration Rate 17 (60-); Glucose, Blood 195 mg/dL (70-99); Magnesium, Blood 2.2 mg/dL (1.6-2.4); Phosphorus, Blood 2.9 mg/dL (2.5-4.9); Sodium, Blood 150 mmol/L (136-145); Vancomycin, Random 23.4 ug/mL
--- NOTE | 2022-06-09 06:04 | NUR ---
SHIFT SUMMARY PATIENT RESPONDS TO VERBAL STIMULI, REMAINS CONFUSED, YELLING OUT AT RANDOM. ABLE TO FOLLOW SOME SIMPLE COMMANDS. 02 SATS 94% ON BIPAP 09/24 FI02 30%. RR 20-26. HR SR 70-80s WITH PVCs AND A 10 BEAT RUN OF V-TACH THIS AM, SAVED TO CHART. BP STABLE. DOBHOFF WITH TF AT 40 MLS/HR, INCREASED AT APPROX 0000, PATIENT TOLERATING WELL. UROSTOMY OUTPUT 900 MLS, CLOUDY YELLOW, WITH WHITE PURULENT OUTPUT. CALLED DR. TERAN REGARDING AM, LABS, TO START D5W AT 100 MLS, GIVE 40 MEQ POTASSIUM AND REDRAW LABS AT NOON, TO CALL DR. TERAN WITH LABS BY 1300. PATIENT TURNED FROM SIDE TO SIDE Q2 HOURS. Q4 HOUR ORAL CARE DONE. PATIENT SLEPT MOST THE NIGHT. CALL LIGHT IN REACH.
--- NOTE | 2022-06-09 08:05 | NUR ---
CARE OF PT ASSUMED AT 0700. PT YELLING OUT WITH BIPAP ON, MOANING AND YELLING OW, OW, OW, OVER AND OVER AGAIN. PT STATES YES WHEN ASKED IF HES IN PAIN. WHEN ASKED WHERE HE SPEAKS GIBBERISH, WORDS ARE COMPLETELY INCOMPREHENSIBLE. PT UNABLE TO STATE NAME. BIPAP REMOVED FOR BREAK, 4L VIA N/C PLACED ON PT. PT DOING WELL ON BREAK SO FAR THIS AM. TUBE FEEDS INCREASED TO GOAL RATE OF 55CC/HR. K+ 60MEQ INFUSING. D5W STARTED AT 100CC/HR. TYLENOL GIVEN FOR PAIN. BRIDGE OF NOSE PURPLE FROM BIPAP, GEL PAD WAS IN PLACE. UROSTOMY DRAINING PURULENT URINE, NO LEAKING, BAG INTACT. TO BRING NEW BAG IN TODAY FROM HOME, WE DO NOT CARRY HIS APPLIANCE.
[2022-06-09 12:29] LABS: Potassium, Blood 3.4 mmol/L (3.5-5.5)
--- NOTE | 2022-06-09 13:48 | NUR ---
LABS CALLED TO DR TERAN AT 1245. D5W INCREASED TO 150CC/HR. FREE WATER INCREASED TO 200CC Q 4 VIA DOBHOFF. PT'S AT BEDSIDE, DR VELASQUEZ SPENT CLOSE TO ONE HR WITH HER AT BEDSIDE. UROSTOMY BAG CHANGED, WE DO CARRY THE SAME APPLIANCE. PT'S SUPPLIES SENT HOME WITH . PT GIVEN BEDBATH. CONTINUES TO DO WELL OFF BIPAP.
[2022-06-09 18:22] LABS: Potassium, Blood 3.3 mmol/L (3.5-5.5)
--- NOTE | 2022-06-09 18:34 | NUR ---
AURICULAR DETOXIFICATION SPECIALIST AT BEDSIDE NOW. PT CALLS OUT, PINEDA SUAREZ. PT DID ASK FOR HIS BY NAME, OTHERWISE STILL CONFUSED. TYLENOL GIVEN FOR PAIN. LABS CALLED TO DR TERAN. K+ IV/PT ORDERED; 40MEQ TOTAL. PT WITH INCREASED ECTOPY INCLUDING 8BEAT RUN OF VT; DR VELASQUEZ AND DR TERAN NOTIFIED.
--- NOTE | 2022-06-09 20:00 | NUR ---
ASSUMED CARE OF PT AT 1900. REPORT RECEIVED AT BEDSIDE. PT PRESENTS IN BED. YELLS OUT WITH SLIGHT TO MODERATE TACTILE STIMULI. WHEN SPEAKING WITH PT HE WILL MOAN OUT. DECREASES WITH DIMINISHED STIMULI. PT HAS BEEN MEDICATED WITH TYLENOL PREVIOUSLY. PT TURNED. DOES OPEN EYES WITH CARE. DOES NOT ANSWER QUESTIONS OR MAKE ANY VERBAL ATTEMPTS OTHER THAN MOANING OUT. WILL REVIEW CHART AND PLAN OF CARE FOR THIS PT.
--- NOTE | 2022-06-09 22:43 | NUR ---
PT HAS BEEN MEDICATED WITH 50 MCG'S FENTANYL FOR CHRONIC PAIN AND MOANING OUT. THIS DID SLOW "OH, OH.." YELLING OUT. PT AGAIN INCREASES WITH THIS WITH STIMULI. HAVE TURNED PT Q 2 HOURS TO PROTECT SKIN INTEGRITY AND TO FACILITATE MOVEMENT OF SECRETIONS. PT WILL COUGH IF CUED. HE SWALLOWS SECRETIONS SO UNABLE TO OBSERVE COLOR OR CONSISTENCY. ORAL CARE DONE WHICH PT DOES NOT TOLERATE. PT DOES NOT EXPECTORATE ANY SECRETIONS DURING THIS TIME. DEMONSTRATES GAG REFLEX WITH SUCTIONING. WILL CONTINUE TO MONITOR P T.
--- NOTE | 2022-06-09 23:05 | NUR ---
DR TERAN COMES IN TO SEE PT. RATE CHANGE FOR IVF RECEIVED.
[2022-06-10 04:04] LABS: BASOPHILS ABSOLUTE AUTO 0.04 K/mm3 (0.00-0.23); BASOPHILS PERCENT AUTO 0 % (0-2); EOSINOPHILS PERCENT AUTO 0 % (0-6); Hemoglobin 12.1 g/dL (13.5-17.5); IMMATURE GRAN ABSOLUTE AUTO 0.51 K/mm3 (0.00-0.10); IMMATURE GRAN PERCENT AUTO 2 % (0-1); LYMPHOCYTES ABSOLUTE AUTO 0.41 K/mm3 (0.84-5.20); LYMPHOCYTES PERCENT AUTO 2 % (21-46); MONOCYTES ABSOLUTE AUTO 1.36 K/mm3 (0.16-1.47); MONOCYTES PERCENT AUTO 6 % (4-13); Mean Corpuscular HGB 27.2 pg (26.0-34.0); Mean Corpuscular Volume 88 fL (80-100); Mean Platelet Volume 10.3 fL (9.1-12.4); NEUTROPHILS ABSOLUTE AUTO 18.88 K/mm3 (1.96-9.15); NEUTROPHILS PERCENT AUTO 89 % (41-73); NRBC ABSOLUTE 0.07 K/mm3 (0.00-0.02); NRBC Auto 0.3 /100 WBC (0.0-0.2); Platelet Count 267 K/mm3 (150-400); RDW Coefficient Variation 16.1 % (11.7-14.2); Red Blood Cell Count 4.45 M/mm3 (4.30-5.90)
[2022-06-10 04:23] LABS: Albumin, Blood 2.3 g/dL (3.4-5.0); Anion Gap 8 mmol/L (6-16); Blood Urea Nitrogen 71 mg/dL (8-24); CO2, Blood 21 mmol/L (21-32); Calcium, Blood 7.5 mg/dL (8.5-10.1); Chloride, Blood 114 mmol/L (98-108); Creatinine, Blood 2.84 mg/dL (0.60-1.20); Glomerular Filtration Rate 22 (60-); Glucose, Blood 177 mg/dL (70-99); Magnesium, Blood 1.8 mg/dL (1.6-2.4); Potassium, Blood 3.7 mmol/L (3.5-5.5); Sodium, Blood 143 mmol/L (136-145); Vancomycin, Random 18.9 ug/mL
--- NOTE | 2022-06-10 05:21 | NUR ---
PT HAS BEEN ABLE TO BE TITRATED DOWN TO 2 L/M OXYGEN PER NASAL CANNULA. PT MAINTAINS > 90 PERCENT SATURATIONS. PT HAS BEEN MEDICATED SEVERAL TIMES WITH FENTANYL FOR MOANING. SOME SUCCESS. PT HAS GIBBERISH TYPE WORDINGS. DOES SAY "NO" AND "OW" OR "OH" PT HAS NT SUCTIONING DONE ONCE BY RESPIRATORY THERAPY. PT TURNED Q 2 HOURS. RESISTANT TO ORAL CARE. WILL CONTINUE TO MONITOR PT, AND WILL REPORT OFF TO ONCOMING RN.
--- NOTE | 2022-06-10 07:15 | NUR ---
Assumed care of pt at 0700. Report received from Christofer DUNCAN. Pt alert. Provides first name but does not provide last name or date of . SpO2 90% or greater RA. SR per monitor with approx 11 PVCs per minute. Confused, but not reaching for dobhoff or central line, pt out of restraints.
--- NOTE | 2022-06-10 18:02 | NUR ---
SUMMARY Pt is PCU status. Alert. Able to state first name only. Routinely provides one-word answers to questions, most often stating "Ow!" or "No" with different inflections "No?" or "NO!" Occasionally says "What?". At one point, when inquiring about thirst, hunger, pain, toileting, pt states "No, I don't need anything". Cough and gag present. PERRL. Pt requires total care with all ADLs including Q2H left/right repositioning. Oral care provided, pt resistant, often reaching for oral care device. Pt does not attempt to pull dobhoff or central line. Pt moves all extremities with equal strength and range of motion. SpO2 90% or greater with room air. SR per monitor with multifocal PVCs. No VTach today. Excellent urine output through urostomy. NO BM this shift. Skin assessment unchanged. Pt's spouse in to visit today and received update from Dr Miller.
[2022-06-10 18:09] LABS: Vancomycin, Random 15.6 ug/mL
[2022-06-11 04:45] LABS: BASOPHILS ABSOLUTE AUTO 0.08 K/mm3 (0.00-0.23); BASOPHILS PERCENT AUTO 0 % (0-2); EOSINOPHILS PERCENT AUTO 0 % (0-6); Hematocrit 39.4 % (37.0-53.0); Hemoglobin 12.7 g/dL (13.5-17.5); IMMATURE GRAN ABSOLUTE AUTO 0.93 K/mm3 (0.00-0.10); IMMATURE GRAN PERCENT AUTO 4 % (0-1); LYMPHOCYTES ABSOLUTE AUTO 0.78 K/mm3 (0.84-5.20); LYMPHOCYTES PERCENT AUTO 4 % (21-46); MONOCYTES ABSOLUTE AUTO 1.46 K/mm3 (0.16-1.47); MONOCYTES PERCENT AUTO 7 % (4-13); Mean Corpuscular HGB 27.7 pg (26.0-34.0); Mean Corpuscular HGB Conc 32.2 g/dL (31.5-36.5); Mean Corpuscular Volume 86 fL (80-100); Mean Platelet Volume 10.9 fL (9.1-12.4); NEUTROPHILS ABSOLUTE AUTO 18.51 K/mm3 (1.96-9.15); NEUTROPHILS PERCENT AUTO 85 % (41-73); NRBC ABSOLUTE 0.06 K/mm3 (0.00-0.02); NRBC Auto 0.3 /100 WBC (0.0-0.2); Platelet Count 259 K/mm3 (150-400); RDW Coefficient Variation 15.9 % (11.7-14.2); RDW Standard Deviation 50.4 fL (35.1-46.3); Red Blood Cell Count 4.59 M/mm3 (4.30-5.90); White Blood Cell Count 21.76 K/mm3 (4.00-11.30)
[2022-06-11 05:08] LABS: Albumin, Blood 2.2 g/dL (3.4-5.0); Anion Gap 10 mmol/L (6-16); Blood Urea Nitrogen 60 mg/dL (8-24); Bun/Creatinine Ratio 27.3 (12.0-20.0); CO2, Blood 24 mmol/L (21-32); Calcium, Blood 7.9 mg/dL (8.5-10.1); Chloride, Blood 105 mmol/L (98-108); Glomerular Filtration Rate 30 (60-); Glucose, Blood 178 mg/dL (70-99); Magnesium, Blood 1.7 mg/dL (1.6-2.4); Phosphorus, Blood 2.1 mg/dL (2.5-4.9); Potassium, Blood 3.3 mmol/L (3.5-5.5); Sodium, Blood 139 mmol/L (136-145); Vancomycin, Random 25.3 ug/mL
--- NOTE | 2022-06-11 05:29 | NUR ---
PT. REMAINED STABLE OVERNIGHT, SATTING ABOVE 92% ON 2L NC WHICH IS HOME BASELINE. PT. HAS HAD SLIGHT HYPERTENSION THROUGHOUT THE NIGHT, AND IS IN NSR WITH FREQUENT PVCS. PT. IS ALERT, BUT UNABLE TO ANSWER ANY QUESTIONS OR FOLLOW COMMAND AT THIS TIME. WHEN PT. DOES RESPOND, THE ONLY TWO THINGS HE SAYS ARE "NO" AND "OW", WITH NO DISCERNMENT BETWEEN WORDS. UROSTOMY SITE IS WNL AND PATENT, DRAINING INTO PICHARDO URINE BAG. OUTPUT WAS 2L OVERNIGHT.
--- NOTE | 2022-06-11 07:30 | NUR ---
Call placed to hospitalist team, spoke to Dr Valladares, with concern that pt has not had BM in 5 days despite receiving docusate BID. Provider to enter new orders.
--- NOTE | 2022-06-11 18:52 | NUR ---
SUMMARY PCU patient. No acute changes to initial assessment. Pt lifted to recliner and sat there for approx 5 hours, tolerated well. OT visited patient, but patient did not participate. Pt currently on room air. Central line removed. Bowel care escalated. D5 stopped. NG flush changed to 50 mL/hr.
[2022-06-12 04:10] LABS: Hematocrit 41.9 % (37.0-53.0); Hemoglobin 13.3 g/dL (13.5-17.5); Mean Corpuscular HGB 27.3 pg (26.0-34.0); Mean Corpuscular HGB Conc 31.7 g/dL (31.5-36.5); Mean Corpuscular Volume 86 fL (80-100); Mean Platelet Volume 11.3 fL (9.1-12.4); Platelet Count 294 K/mm3 (150-400); RDW Coefficient Variation 15.7 % (11.7-14.2); RDW Standard Deviation 49.4 fL (35.1-46.3); Red Blood Cell Count 4.88 M/mm3 (4.30-5.90)
[2022-06-12 04:14] LABS: NRBC ABSOLUTE 0.14 K/mm3 (0.00-0.02); NRBC Auto 0.5 /100 WBC (0.0-0.2); White Blood Cell Count 26.98 K/mm3 (4.00-11.30)
[2022-06-12 04:48] LABS: BAND PERCENT MAN 1 % (0-8); BASOPHILS PERCENT MAN 0 % (0-2); EOSINOPHILS PERCENT MAN 0 % (0-6); LYMPHOCYTES PERCENT MAN 3 % (21-46); METAMYELOCYTE PERCENT MAN 3 % (0-0); MONOCYTES ABSOLUTE MAN 1.34 K/mm3 (0.16-1.47); MONOCYTES PERCENT MAN 5 % (4-13); MYELOCYTE ABSOLUTE MAN 0.53 K/mm3 (0.00-0.00); MYELOCYTE PERCENT MAN 2 % (0-0); NEUTROPHILS ABSOLUTE MAN 23.47 K/mm3 (1.96-9.15); SEG NEUTROPHILS PERCENT MAN 86 % (41-73); TOTAL CELLS COUNTED 100
[2022-06-12 04:53] LABS: Albumin, Blood 2.4 g/dL (3.4-5.0); Anion Gap 10 mmol/L (6-16); Blood Urea Nitrogen 69 mg/dL (8-24); Bun/Creatinine Ratio 30.1 (12.0-20.0); CO2, Blood 22 mmol/L (21-32); Calcium, Blood 8.7 mg/dL (8.5-10.1); Chloride, Blood 103 mmol/L (98-108); Creatinine, Blood 2.29 mg/dL (0.60-1.20); Glomerular Filtration Rate 29 (60-); Glucose, Blood 162 mg/dL (70-99); Phosphorus, Blood 3.2 mg/dL (2.5-4.9); Potassium, Blood 4.3 mmol/L (3.5-5.5); Sodium, Blood 135 mmol/L (136-145); Vancomycin, Random 21.6 ug/mL
--- NOTE | 2022-06-12 06:00 | NUR ---
SHIFT SUMMARY: PT. DID WELL OVERNIGHT, SATTED ABOVE 93% ON RA, BP STABLE AND WNL, HR SINUS TACH IN THE 90S. PT. IS ALERT AND MORE ORIENTED THAN THE BEGINNING OF THE SHIFT AND WAS ABLE TO TELL ME HE WANTED THE TV OFF. TF STILL GOING AT GOAL THROUGH THE DOBHOFF, UROSTOMY STILL DRAINING INTO PICHARDO DRAINAGE BAG, 700 UOP OVERNIGHT. PT. IS RESTING IN BED AT THIS TIME.
--- NOTE | 2022-06-12 17:40 | NUR ---
SUMMARY Pt changed from PCU status to medical floor status with telemetry this shift. Departed ICU 8 for room 352 at 1730 today. At time of transfer, assessment is as follows: Neuro: Remarkable improvement in mental status compared to previous shifts. Pt able to state name, date of , spouse's name, speak in complete sentences (4-5 words) and communicate needs. Pt is still confused and repetitve but continuing to improve. Pt medicated for pain during one episode where he was yelling repetitive phrases of praise in distressed voice. Pt much more comfortable after receiving one dose of tylenol and fentanyl. Musculoskeletal: He was able to follow directions and assist this RN with repositioning as well as work meaningfully with speech therapy, physical therapy, and occupational therapy. Pt sat up in recliner for 5 hours today. Respiratory: SpO2 90% or greater RA. Lungs clear. Congested cough, unproductive. Cardiac: ST. 100-110 at rest. Up to 130s with activity. Mutifocal PVCs, decreasing in frequency compared to previous shifts. GI: Pt passed continent void of liquid stool into bedpan. Afterwards, pt in distress yelling "Ow, ow, I can't poop, I need to poop, I can't poop". On wiping patient noticed tamara of extremely hard stool. Offered disimpaction to patient, which patient agreed to. Large bolus of hard stool present in rectum. Manually removed. Pt appeared more comfortable afterwards. TF per prescribed regimen. : Urostomy appliance changed. Good urine output. Skin: Unchanged from initial assessment. Psyschosocial: Pt's spouse at bedside, update given. Has calming presence for patient. Pt calm and cooperative for beginning of shift. Distressed in afternoon during episode of pain and bowel movement. Report given to Antony DUNCAN.
--- NOTE | 2022-06-12 19:28 | NUR ---
SHIFT SUMMARY PATIENT TRANSFERRED FROM ICU. ISOLATION FOR COVID +. A&O X1. PATIENT ABLE TO COMMUNICATE BETTER PER VB NET DEVELOPER SPEAKING 3-4 WORD SENTENCES. PATIENT FAILED SWALLOW EVAL THIS AM, NPO RECEIVING TUBE FEEDING VIA DUBHOFF AT 55ML/HR. TELE MONITOR READING ST 110S. Q6 CBG. UROSTOMY PRESENT AND DRAINGING TO GRAVITY. VSS. REPORT GIVEN TO ONCOMING RN.
--- NOTE | 2022-06-12 20:40 | NUR ---
FOR THE 2039 TELE ASSESSMENT, I USED THE 1827 RHYTHM STRIP ON 06/12 FOR MY RHYTHM.
--- NOTE | 2022-06-12 23:40 | NUR ---
TELE MONITOR BEEPING - SHOWS "NO CENTRAL MONITORING." CONTACED PCU FIFI LAM, AND SHE REPORTED SHE DIDN'T HAVE THE PATIENT ON THE MONITOR. WILL LOOK INTO FURTHER, REGARDING TELE.
--- NOTE | 2022-06-12 23:45 | NUR ---
NO ORDER FOR TELE - TELE REMOVED. LARGE LOOSE BM OUT. MEPILEX APPLIED TO COCCYX.
--- NOTE | 2022-06-13 00:49 | NUR ---
CHART CHECK DONE - PT DOES HAVE AN ORDER FOR TELE - SPOKE TO PERSONAL CARER - UPDATED ORDER FOR TELE - AWAITING TELE MONITOR TO PLACE BACDK ON PT.
--- NOTE | 2022-06-13 01:34 | NUR ---
RECEIVED A TELEPHONE CALL FROM MARISSA CALIX MT PT HAD A 5 BEAT RUN OF VTACH - REPORTED TO CALL DAKOTA VALLE COVERING DURING MY LUNCH.
--- NOTE | 2022-06-13 01:55 | NUR ---
PER TORI RN - HE CHECK ON PT, AND PT WAS ASYMPTOMATIC WITH VTACH.
--- NOTE | 2022-06-13 02:00 | NUR ---
UPDATED KENYA RUFF REGARDING TELE IN PLACE AT BEGINNING OF THE SHIFT, ALONG WITH PREVIOUS SHIFT REPORTING TELE IN PLACE. HOWEVER, AT 2340 TELE MONITOR ON PT SAYS "NO CENTRAL MONITORING". ALSO REPORTED I SPOKE TO FIFI U CAROLE AND SHE REPORTED PT WASN'T ON THE PCU TELE MONITOR AT 2345. SEE PAST RHYTHM STRIP ON CHART AT 1828 FROM TODAY. SPEEDY CHECKING INTO ABOVE ISSUE.
[2022-06-13 05:00] LABS: Hematocrit 35.5 % (37.0-53.0); Hemoglobin 11.3 g/dL (13.5-17.5)
[2022-06-13 05:50] LABS: Anion Gap 12 mmol/L (6-16); Blood Urea Nitrogen 104 mg/dL (8-24); Bun/Creatinine Ratio 32.1 (12.0-20.0); CO2, Blood 20 mmol/L (21-32); Calcium, Blood 8.8 mg/dL (8.5-10.1); Chloride, Blood 104 mmol/L (98-108); Creatinine, Blood 3.24 mg/dL (0.60-1.20); Glomerular Filtration Rate 19 (60-); Glucose, Blood 172 mg/dL (70-99); Magnesium, Blood 2.3 mg/dL (1.6-2.4); Phosphorus, Blood 5.1 mg/dL (2.5-4.9); Potassium, Blood 4.4 mmol/L (3.5-5.5); Sodium, Blood 136 mmol/L (136-145)
--- NOTE | 2022-06-13 06:38 | NUR ---
SHIFT SUMMARY - RECEIVED AN ORDER FROM DR. TERAN THIS AM FOR NORMAL SALINE 75 HOUR - CALL PLACED TO DR. TREAN WITH CURRENT TUBE FEEDS/WATER FLUSHES, LUNG SOUNDS THAT ARE COARSE THROUGHOUT - ORDER CHANGED TO NORMAL SALINE 50 HOUR AND STAT CHEST XRAY. KIDNEY FUNCTION IS DECLINING. PT IS NPO. WILL CONTINUE TO MONITOR UNTIL AM SHIFT CHANGE. PT REMAINED ON 2L 02 NC THROUGHOUT THE NIGHT - PT REPORTS HE WEARS 2L O2 AT NIGHT AT HOME. CALL LIGHT WITHIN REACH - PT HAS USED APPROPRIATELY.
--- NOTE | 2022-06-13 17:33 | NUR ---
SUMMARY- PT ALERT TO SELF. CANT REMEMBER WIFES NAME. COULDN'T REMEMBER THAT SHE HAD BEEN IN TO SEE HIM. DEPENDANT IN CARE. ROUTINE TURNING. BED BATH TODAY AND LINEN CHANGE. TUBE FEEDING CONT. TERAN ADDED IVF NS AT 50ML/HR IN LIGHT OF DECLINING GFR. UROSTOMY PATENT, DRAINING MED YELLOW WITH MUCOUS IN BAG. LUNGS DIM IN BASES, UPPER AIRWAY COARSE, ENC COUGH AND DEEP BREATH REGULARLY. STARTED FLUTTER VALVE. CLEARS SECRETIONS AND APPEARS TO SWALLOW. REG ORAL CARE AND MOUTH MOISTERIZER. SPEECH EVAL TODAY STATING HE ISNT READY TO START REGULAR FOOD YET. EXCORIATION R MED THIGH, REDNESS GROIN, APPLIED CALAZYME TO REDNESS AND EXCORIATION. TOOK MEPILEX OFF OF SACRUM, HEALING WITH PINHOLE LEFT SURR WITH PEALING SKIN. WILL REAPPLY SMALLER MEPILEX. PT MEDICATED X2 WITH FENT FOR PAIN. 1030 PT WAS CRYING OUT IN PAIN STATING HIS ABD HURT. MEDICATED AND PT WAS RESTING AT 1100. PT PASSED COPIOUS AMOUNTS OF GAS AND LATER STATED HIS PAIN HAD SUBSIDED. ALSO PLACED A HEAT PAD TO ABD AND THIS MAY HAVE AIDED IN PT'S ABD RELEIF. CHECKED RECTAL VAULT, NO IMPACTION.
--- NOTE | 2022-06-13 21:57 | NUR ---
1930 PT FOUND WITH BBBONNY PULLED OUT SOME. TUBE FED BACK. DR ALMAZAN CALLED AND A CXR WAS ORDERED. AWAITING RESULTS.
--- NOTE | 2022-06-14 02:06 | NUR ---
0130 TELETECH CALLS AND INFORMS OF 5 BEAT RUN OF V TACH. PT ASSESSED AND PT UNCHANGED. WCTM
--- NOTE | 2022-06-14 05:31 | NUR ---
SUMMARY PT DOBHOFF WAS FOUND TO BE DISLODGED. TUBE WAS ADVANCED AND CXR WAS COMPLETED. UNFORTUNATELY, CXR RESULTS ARE NOT AVAILABLE AND TUBE FEEDING HAS BEEN STOPPED SINCE TUBE WAS FOUND DISLODGED. PT STILL ON IV FLUIDS. PT VOIDING. CALL LIGHT IN REACH AND BED ALARM ON.
[2022-06-14 06:07] LABS: Hematocrit 30.8 % (37.0-53.0); Hemoglobin 9.8 g/dL (13.5-17.5); Mean Corpuscular HGB 28.1 pg (26.0-34.0); Mean Corpuscular HGB Conc 31.8 g/dL (31.5-36.5); Mean Corpuscular Volume 88 fL (80-100); Mean Platelet Volume 12.2 fL (9.1-12.4); NRBC ABSOLUTE 0.57 K/mm3 (0.00-0.02); NRBC Auto 1.5 /100 WBC (0.0-0.2); Platelet Count 271 K/mm3 (150-400); RDW Coefficient Variation 15.8 % (11.7-14.2); RDW Standard Deviation 50.6 fL (35.1-46.3); Red Blood Cell Count 3.49 M/mm3 (4.30-5.90); White Blood Cell Count 37.32 K/mm3 (4.00-11.30)
[2022-06-14 06:35] LABS: Albumin, Blood 1.8 g/dL (3.4-5.0); Anion Gap 13 mmol/L (6-16); Blood Urea Nitrogen 116 mg/dL (8-24); Bun/Creatinine Ratio 31.4 (12.0-20.0); CO2, Blood 18 mmol/L (21-32); Calcium, Blood 8.4 mg/dL (8.5-10.1); Chloride, Blood 105 mmol/L (98-108); Creatinine, Blood 3.69 mg/dL (0.60-1.20); Glomerular Filtration Rate 16 (60-); Glucose, Blood 118 mg/dL (70-99); Magnesium, Blood 2.1 mg/dL (1.6-2.4); Potassium, Blood 4.9 mmol/L (3.5-5.5); Sodium, Blood 136 mmol/L (136-145); Vancomycin, Random 16.1 ug/mL
[2022-06-14 07:49] LABS: BAND PERCENT MAN 1 % (0-8); BASOPHILS PERCENT MAN 0 % (0-2); EOSINOPHILS PERCENT MAN 0 % (0-6); LYMPHOCYTES ABSOLUTE MAN 1.11 K/mm3 (0.84-5.20); LYMPHOCYTES PERCENT MAN 3 % (21-46); METAMYELOCYTE ABSOLUTE MAN 1.49 K/mm3 (0.00-0.00); METAMYELOCYTE PERCENT MAN 4 % (0-0); MONOCYTES ABSOLUTE MAN 3.73 K/mm3 (0.16-1.47); MONOCYTES PERCENT MAN 10 % (4-13); NEUTROPHILS ABSOLUTE MAN 30.97 K/mm3 (1.96-9.15); SEG NEUTROPHILS PERCENT MAN 82 % (41-73); TOTAL CELLS COUNTED 100
--- NOTE | 2022-06-14 12:37 | NUR ---
1000 DR MURPHY HERE TO EVAL PT. 1100 DR FRASER AND PARUL BY TO EVAL PT. CALLED DR TERAN WITH CXR RESULTS 1235
--- NOTE | 2022-06-14 20:11 | NUR ---
SUMM- PT DEPENDANT IN CARE, TURNED Q2. CXR THIS AM ORDERED BY DR TERAN F/U LUNG STATUS- AWARE OF CRACKLES IN BASES AND UPPER RHONCHI. DR FRASER IN THIS AM AND AWARE OF PT'S STATUS AND LUNG STATUS. PT HAS A WEAK COUGH AND MINIMALLY ABLE TO CLEAR SECRETIONS. WORKING ON FLUTTER AND PULM TIOLET BUT PT HAS WEAK EFFORT. HAS ROUTINE NEBS AND PM DID NT SUCTION WITH LG AMOUNT ZHANG STRINGY SECRETIONS. PT BECOMES VERY DYSPNIC WITH RESP CARE AND NEEDS 3-5 MIN WITH INCREASED OX 8L TO RECOVER. PT RR WAS 26 THIS AM USING ABD MUSCLE TO AID IN BREATING. DAY PROGRESSED RR 36 BEFPRE NT SUCTION AND BACK DOWN TO AROUND 26-28 AFTER SUCEION. WELL AWARE OF PT'S DECLINING RESP STATUS AND INABILITY TO CLEAR SECRETIONS. DISCUSSED CODE STATUS AND SHE IS WANTING TO KEEP HIM FULL CODE AT THIS TIME. ENCOURAGED TO SPEAK WITH PALLIATIVE IN THE MORNING AND WITH THE DR TO DISCUSS CODE STATUS AND BEST PLAN FOR PT. VITO IS IS LIKELY THAT PT WILL NEED TO BE TRANSFERRED TO PCU FOR CPAP SEDATION IF THINGS KEEP TRENDING DOWN. SHE UNDERSTANDS, AND THIS IS WHAT SHE WANTS FOR NOW.
--- NOTE | 2022-06-15 01:29 | NUR ---
TOWER WATCHMAN REPORTS "A FLUTTER WITH PVC'S". UPON VISUAL ASSESSMENT. NO NOTED ACUTE DISTRESS. VSS. WILL CONTINUE TO MONITOR. CALL LIGHT IN REACH
--- NOTE | 2022-06-15 04:14 | NUR ---
SHIFT SUMMARY: PT IS ALERT AND CONFUSED. PT IS A LIFT, NOT OUT OF BED OVERNIGHT. PT HAS DOBHOFF WITH CONTINUOUS FEED RUNNING. LUNG SOUNDS COARSE AND CONGESTED SATS > 90% ON 3L. UROSTOMY PATENT AND DRAINING YELLOW URINE. FLUIDS RUNNING AT 100 ML/HR. PT SHOWS NO S/S FOR PAIN, NAUSEA, OR VOMITING. SOME SOB OBSERVABLE. BED IN LOW POSITION, CALL LIGHT WITHIN REACH. WILL CONTINUE TO MONITOR.
[2022-06-15 05:19] LABS: Hematocrit 25.1 % (37.0-53.0); Hemoglobin 7.7 g/dL (13.5-17.5)
[2022-06-15 06:03] LABS: Albumin, Blood 1.5 g/dL (3.4-5.0); Anion Gap 11 mmol/L (6-16); Blood Urea Nitrogen 111 mg/dL (8-24); Bun/Creatinine Ratio 33.5 (12.0-20.0); CO2, Blood 17 mmol/L (21-32); Calcium, Blood 7.9 mg/dL (8.5-10.1); Chloride, Blood 114 mmol/L (98-108); Creatinine, Blood 3.31 mg/dL (0.60-1.20); Glomerular Filtration Rate 19 (60-); Glucose, Blood 113 mg/dL (70-99); Phosphorus, Blood 5.8 mg/dL (2.5-4.9); Potassium, Blood 3.9 mmol/L (3.5-5.5); Sodium, Blood 142 mmol/L (136-145)
--- NOTE | 2022-06-15 13:08 | NUR ---
Spiritual care visit conducted. Pt is lying in bed and alert. Pt's spouse, Antonieta, is bedside. Pt is confused but says often that he loves Rahul and that he is ready to go home to be with him. Antonieta tells me that his dtr, who lives [id number], will be arriving on Wednesday and she is hoping that he will "hold-out" until she can visit. Both pt and Antonieta are very spiritual people and are very encouraged by quotes from the Bible and from prayer. I supply both with great results ( pt raises his hand and repeats "Yu Rahul, Thank you Rahul" with tears running down his checks. Antonieta talks at length about the many disappointments she has had in life (the of her son being one of them, as well as prior family unit complications). She states that she does have good family support but hesitates to ask for help. As I encourage self-care Antonieta seems to respond with a greater receptivity to having family step in. We talk about comfort care and the need for given pt's many statements about wanting to "be with Rahul." She indicates that comfort care is the way she is now leaning (I let pt's RN Dax know this). I will continue to remain available to pt and family.
--- NOTE | 2022-06-15 13:32 | NUR ---
[id number]- VISUALIZED PT ON START OF SHIFT, PT DYSPIC RR 36, SHALLOW ACCESSORY ABD MUSCLES, SHALLOW AND RATTLEY RHONCHI UPPER AIRWAY. PT HAS EYES OPEN, IS COMMUNICATIVE, TALKATIVE AND INTERACTIVE. CALLED GEORGE, PT'S AND NOTIFIED HER THAT PT'S RESP STATUS IN DECLINING AND SHE MAY WANT TO COME SEE PT. ALSO NEEDS TO ADRESS CODE STATUS PT IS DECLINING. CALLED DR Trisha MURPHY AND NOTIFIED HER ABOUT PT'S STATUS. CALLED PALLIATIVE TO COME MEET WITH WHEN SHE ARRIVES.
[2022-06-15 15:48] LABS: Hematocrit 25.1 % (37.0-53.0); Hemoglobin 7.5 g/dL (13.5-17.5); Mean Corpuscular HGB 27.1 pg (26.0-34.0); Mean Corpuscular HGB Conc 29.9 g/dL (31.5-36.5); Mean Corpuscular Volume 91 fL (80-100); Mean Platelet Volume 11.7 fL (9.1-12.4); NRBC ABSOLUTE 0.79 K/mm3 (0.00-0.02); NRBC Auto 3.4 /100 WBC (0.0-0.2); Platelet Count 247 K/mm3 (150-400); RDW Standard Deviation 52.7 fL (35.1-46.3); Red Blood Cell Count 2.77 M/mm3 (4.30-5.90); White Blood Cell Count 23.44 K/mm3 (4.00-11.30)
--- NOTE | 2022-06-15 18:01 | NUR ---
Multiple conversation with family regarding pt decline. More labored as day goes and increased secretions more delirium. struggling wants to wait til his dauhgther comes on . requested chaplian see her. Physicians spoke with her and advised may not make it til . order per Dr Trisha Vázquez hold tube feeds tonight, stop fentanyl and use a careful dose of roxinal for air hunger and stress from secretions. Advised nursing to give zofran looks like his may be having some GI symptoms. Atropine ordered for excessive drooling. Will suggest family zoom or face time tomorrow he is suffering.
--- NOTE | 2022-06-15 18:49 | NUR ---
SUMMARY- PT ALERT TO SELF AND FAMILY. PT'S RESP STATUS HAS CONT TO DECLINE AND UNABLE TO CLEAR SERETIONS HAVING LG AMOUNT OF ZHANG SECERTIONS. ASSIST WITH SUCTION APPROX 4 TIMES THIS SHIFT WITH LG AMOUNTS ZHANG SECRETIONS, BUT LEAVES PT SEVERELY DYDPNIC AND AIR HUNGRY. INCREASED OXYGEN DURING THESE SESSIONS AND TAKES ABOUT 10 MIN TO RECOVER BUT PT BREATHS BETTER AFTER SECRETION EVACUATED. PALLIATIVE, RN AND DR VAIL HAVE ASSISTED IN EDUCATION TO AID IN HER MAKING MEDICATL DECISIONS. PT IS NOT W DNR, BUT STILL NOT COMFORTABLE WITH MAKING PT COMFORT CARE. PT'S KIDS ARE COMING TO VISIT IN 2-3 DAYS FROM OUT OF STATE. PT HAD VISIT FROM STEP DAUGHTER AND GREAT GRAND DAUGHTER TODAY. PT WAS SITTING UP AND VERY TALKATIVE TODAY. VSS AND MAINTAINING SATS. HH LOW AND DROPPING. HAD BEEN RECEIVING INCREASE IN HYDRATION FROM IVF PAST FEW DAYS. TUBE FEEDS DC'D THIS PM WALL CBG. FENT DC'D AND STARTING ROXANOL q8. WILL REPORT TO NOC DAKOTA.
[2022-06-15 19:32] LABS: BAND PERCENT MAN 4 % (0-8); BASOPHILS PERCENT MAN 0 % (0-2); EOSINOPHILS PERCENT MAN 0 % (0-6); LYMPHOCYTES % ATYPICAL MANUAL 1 % (0-0); LYMPHOCYTES PERCENT MAN 5 % (21-46); METAMYELOCYTE ABSOLUTE MAN 0.46 K/mm3 (0.00-0.00); METAMYELOCYTE PERCENT MAN 2 % (0-0); MONOCYTES ABSOLUTE MAN 1.87 K/mm3 (0.16-1.47); MONOCYTES PERCENT MAN 8 % (4-13); MYELOCYTE ABSOLUTE MAN 0.46 K/mm3 (0.00-0.00); MYELOCYTE PERCENT MAN 2 % (0-0); NEUTROPHILS ABSOLUTE MAN 19.22 K/mm3 (1.96-9.15); SEG NEUTROPHILS PERCENT MAN 78 % (41-73); TOTAL CELLS COUNTED 100
[2022-06-16 05:54] LABS: Hemoglobin 7.1 g/dL (13.5-17.5); Mean Corpuscular HGB 28.3 pg (26.0-34.0); Mean Corpuscular HGB Conc 30.9 g/dL (31.5-36.5); Mean Corpuscular Volume 92 fL (80-100); Mean Platelet Volume 10.8 fL (9.1-12.4); NRBC ABSOLUTE 0.64 K/mm3 (0.00-0.02); NRBC Auto 3.2 /100 WBC (0.0-0.2); Platelet Count 232 K/mm3 (150-400); RDW Standard Deviation 53.3 fL (35.1-46.3); Red Blood Cell Count 2.51 M/mm3 (4.30-5.90)
--- NOTE | 2022-06-16 05:58 | NUR ---
SHIFT SUMMARY: PT IS ALERT AND CONFUSED. PT DOES NOT USE HIS CALL LIGHT. PT REQUIRES A LIFT, NOT OUT OF BED THIS SHIFT. UROSTOMY PATENT AND DRAINING YELLOW URINE. FLUIDS RUNNING ORDERED. DOBHOFF TUBE IN PLACE, FEEDING'S DC'D, CONTINUED USE FOR MEDICATION ADMINISTRATION. PT ON 4 L O2 KEEPING SATS > 90%. LUNGS COARSE AND CONGESTED, PT NPO FOR ASPIRATION RISK. PT SHOWS SIGNIFICANT SOB DURING SUCTION AND REPOSITIONING. PT SHOWS NO S/S FOR PAIN, NAUSEA OR VOMITING. BED IN LOW POSITION, CALL LIGHT WITHIN REACH. WILL CONTINUE TO MONITOR AND REPORT TO DAY NURSE.
[2022-06-16 06:14] LABS: Albumin, Blood 1.5 g/dL (3.4-5.0); Anion Gap 9 mmol/L (6-16); Blood Urea Nitrogen 98 mg/dL (8-24); Bun/Creatinine Ratio 30.7 (12.0-20.0); CO2, Blood 18 mmol/L (21-32); Calcium, Blood 7.7 mg/dL (8.5-10.1); Chloride, Blood 119 mmol/L (98-108); Creatinine, Blood 3.19 mg/dL (0.60-1.20); Glomerular Filtration Rate 20 (60-); Glucose, Blood 90 mg/dL (70-99); Phosphorus, Blood 6.5 mg/dL (2.5-4.9); Potassium, Blood 4.7 mmol/L (3.5-5.5); Sodium, Blood 146 mmol/L (136-145)
[2022-06-16 06:23] LABS: BAND PERCENT MAN 3 % (0-8); BASOPHILS PERCENT MAN 0 % (0-2); EOSINOPHILS ABSOLUTE MAN 0.19 K/mm3 (0.00-0.68); EOSINOPHILS PERCENT MAN 1 % (0-6); LYMPHOCYTES ABSOLUTE MAN 0.59 K/mm3 (0.84-5.20); LYMPHOCYTES PERCENT MAN 3 % (21-46); METAMYELOCYTE ABSOLUTE MAN 0.19 K/mm3 (0.00-0.00); METAMYELOCYTE PERCENT MAN 1 % (0-0); MONOCYTES ABSOLUTE MAN 1.59 K/mm3 (0.16-1.47); MONOCYTES PERCENT MAN 8 % (4-13); NEUTROPHILS ABSOLUTE MAN 17.31 K/mm3 (1.96-9.15); SEG NEUTROPHILS PERCENT MAN 84 % (41-73); TOTAL CELLS COUNTED 100
--- NOTE | 2022-06-16 15:51 | NUR ---
Spiritual care visit conducted. Pt is sitting up in bed and alert. Pt is confused at times and clear for a sentence or two. Pt seems to be in a spiritual state of saying that he is seeing Rahul, asking if he is and if he is in heaven. Most conversation centers around his Rahul and asking if his brother is on the TV. I speak at length with pt's spouse, Antonieta, about how she is coping and her personal struggles. I provide therapeutic listening, gentle corporate counselor, self-care encouragement and prayer. Pt responds well to the prayer and lifts his hand and repeats, "Thank you Rahul, thank you Rahul." Antonieta shows signs of being encouraged and having reduced stress.
--- NOTE | 2022-06-16 16:21 | NUR ---
pt with and chaplian at bedside. increased secretions and dyspnea. Review of meds with nursing. will not make him comfort untip pt daughter arrives. She is showing great caregiver stress.
--- NOTE | 2022-06-16 18:34 | NUR ---
SHIFT SUMMARY: PATIENT A&OX2. DENIES CP/CHEST DISCOMFORT. SOB BREATH WITH RR RANGES FROM HIGH 20'S TO LOW 30'S BREATH/MIN. RECIEVED 1 DOSE OF ROXANOL FOR AIR HUMGER AND HAS SIGNS OF RELEIVE RR WENT DOWN TO MID 20'S BREATH/MIN. NS INFUSING AT 50 MLS/HR. UROSTOMY PATENT AND DRAINING YELLOW URINE WITH MUCOUSY SEDIMENTS. ON O2 3L VIA NC WITH SPO2 OF HIGH 90'S. AT BEDSIDE PART OF THE DAY AND SPOKE TO DR. ROSALES TODAY. CONSIDERING CC MEASURES AWAITING FOR PATIENT'S DAUGHTER ARRIVAL TOMORROW 06/17 TO MAKE THE FINAL DECISION. DOBBHOFF WAS ACCESS FOR SCHEDULED MEDS AND FEEDING HAS BEEN ON HOLD THIS SHIFT. Q2 TURN. BED IN LOW POSITION, LOCKED AND BED ALARM ON FOR SAFETY. CALL LIGHT IN REACH. WILL HAVE REPORT TO FROYLAN VAN RN.
--- NOTE | 2022-06-17 01:22 | NUR ---
PT HAD AN EPISODE OF OXYGEN DESATURATION AROUND MIDNIGHT. PT OXYGEN LEVEL IN THE 60'S. RT IN ROOM, PT PLACED ON NON-REBREATHER MASK, OXYGEN ONLY WENT UP TO 70'S. PT THEN PLACED ON AIRVO, OXYGEN SATURATION NOW AT 96-100. PT STS THAT HE IS FEELING BETTER, BUT HOT. GIVEN AN ICE PACK FOR HIS NECK.
--- NOTE | 2022-06-17 04:04 | NUR ---
PT PULLED OUT DOBHOFF TUBE. PER DR DILLON IT IS OK TO HOLD OFF ON PUTTING ANOTHER ONE IN AT THIS TIME.
--- NOTE | 2022-06-17 04:19 | NUR ---
SHIFT SUMMARY SEE PREVIOUS NOTE FOR DESATTING INCIDENT. PT NOW A&O X 1-2, WHICH IS WHERE HE WAS AT BEFORE THE EVENT. PT PULLED OUT DOBHOFF, NOT REPLACING AT THIS TIME. (SEE PREVIOUS NOTE). PT CONTINUES TO BEG FOR WATER. HAVE BEEN GIVING PT GREEN SPONGES TO HELP WITH HIS DRY MOUTH AND THROAT. PT DID HAVE A HR OF 130'S-140'S EARLIER. DR DILLON ORDERED A DOSE OF 5 OF LABETOLOL. DID NOT GIVE PT HR HAS BEEN COMING DOWN ON IT'S OWN.
[2022-06-17 05:22] LABS: Hematocrit 22.1 % (37.0-53.0); Hemoglobin 6.5 g/dL (13.5-17.5); Mean Corpuscular HGB 27.1 pg (26.0-34.0); Mean Corpuscular HGB Conc 29.4 g/dL (31.5-36.5); Mean Corpuscular Volume 92 fL (80-100); Mean Platelet Volume 10.8 fL (9.1-12.4); NRBC ABSOLUTE 0.66 K/mm3 (0.00-0.02); NRBC Auto 3.2 /100 WBC (0.0-0.2); Platelet Count 269 K/mm3 (150-400); RDW Coefficient Variation 16.2 % (11.7-14.2); RDW Standard Deviation 52.4 fL (35.1-46.3); White Blood Cell Count 20.79 K/mm3 (4.00-11.30)
[2022-06-17 06:10] LABS: Magnesium, Blood 1.8 mg/dL (1.6-2.4)
[2022-06-17 06:11] LABS: Albumin, Blood 1.5 g/dL (3.4-5.0); Anion Gap 12 mmol/L (6-16); Blood Urea Nitrogen 86 mg/dL (8-24); Bun/Creatinine Ratio 27.9 (12.0-20.0); CO2, Blood 15 mmol/L (21-32); Calcium, Blood 7.6 mg/dL (8.5-10.1); Chloride, Blood 121 mmol/L (98-108); Creatinine, Blood 3.08 mg/dL (0.60-1.20); Glomerular Filtration Rate 20 (60-); Glucose, Blood 88 mg/dL (70-99); Potassium, Blood 4.5 mmol/L (3.5-5.5); Sodium, Blood 148 mmol/L (136-145)
[2022-06-17 06:25] LABS: BAND PERCENT MAN 1 % (0-8); BASOPHILS PERCENT MAN 0 % (0-2); EOSINOPHILS PERCENT MAN 0 % (0-6); LYMPHOCYTES ABSOLUTE MAN 0.41 K/mm3 (0.84-5.20); LYMPHOCYTES PERCENT MAN 2 % (21-46); METAMYELOCYTE ABSOLUTE MAN 0.41 K/mm3 (0.00-0.00); METAMYELOCYTE PERCENT MAN 2 % (0-0); MONOCYTES ABSOLUTE MAN 1.24 K/mm3 (0.16-1.47); MONOCYTES PERCENT MAN 6 % (4-13); MYELOCYTE ABSOLUTE MAN 0.41 K/mm3 (0.00-0.00); MYELOCYTE PERCENT MAN 2 % (0-0); NEUTROPHILS ABSOLUTE MAN 18.29 K/mm3 (1.96-9.15); SEG NEUTROPHILS PERCENT MAN 87 % (41-73); TOTAL CELLS COUNTED 100
--- NOTE | 2022-06-17 17:57 | NUR ---
SHIFT SUMMARY: PATIENT A&OX2. Hgb 6.5 THIS AM. RECIEVED 1 UNIT OF RBC. VSS, LUNGS MOIST AND COARSE THROUGHOUT. RR RANGES 20-28 BREATH/MIN. ON AIRVO 45LPM, FIO2 30% WITH SPO2 OF 97%. VSS. UROSTOMY PATENT AND DRAINING YELLOW URINE. SODIUM BICARB INFUSING AT 50 MLS/HR. ST REEVALUATE PATIENT SWALLOWING. DIET HAS BEEN UPDATED TO PUREE WITH SPOON FEED THIN LIQUID, AND MEDS CRUSHED WITH APPLE SAUCE. STILL WAITING FOR PATIENT'S DAUGHTER ARRIVAL TO MAKE PLAN OF CARE DECISIONS. PATIENT'S AT BEDSIDE. REPORT THAT SHE ALREADY MADE THE DECISIONS AND LEANING TOWARDS TO CC MEASURES SHE JUST NEED TO HAVE CONVERSATION WITH PATIENT'S DAUGHTER WHEN THEY ARRIVE. BED ALARM ON, LOCKED AND CALL LIGHT IN REACH. WILL GIVE REPORT TO ONCOMING CARLOTA RN.
[2022-06-18 05:31] LABS: Hematocrit 23.7 % (37.0-53.0); Hemoglobin 7.5 g/dL (13.5-17.5); Mean Corpuscular HGB 27.8 pg (26.0-34.0); Mean Corpuscular HGB Conc 31.6 g/dL (31.5-36.5); Mean Corpuscular Volume 88 fL (80-100); Mean Platelet Volume 10.6 fL (9.1-12.4); NRBC Auto 4.5 /100 WBC (0.0-0.2); Platelet Count 287 K/mm3 (150-400); RDW Coefficient Variation 16.4 % (11.7-14.2); RDW Standard Deviation 50.7 fL (35.1-46.3); White Blood Cell Count 15.59 K/mm3 (4.00-11.30)
[2022-06-18 06:01] LABS: Albumin, Blood 1.5 g/dL (3.4-5.0); Anion Gap 9 mmol/L (6-16); Blood Urea Nitrogen 83 mg/dL (8-24); Bun/Creatinine Ratio 30.9 (12.0-20.0); CO2, Blood 23 mmol/L (21-32); Calcium, Blood 7.9 mg/dL (8.5-10.1); Chloride, Blood 115 mmol/L (98-108); Creatinine, Blood 2.69 mg/dL (0.60-1.20); Glomerular Filtration Rate 24 (60-); Glucose, Blood 115 mg/dL (70-99); Magnesium, Blood 1.5 mg/dL (1.6-2.4); Phosphorus, Blood 4.7 mg/dL (2.5-4.9); Potassium, Blood 4.1 mmol/L (3.5-5.5); Sodium, Blood 147 mmol/L (136-145)
[2022-06-18 06:34] LABS: BAND PERCENT MAN 1 % (0-8); BASOPHILS PERCENT MAN 0 % (0-2); EOSINOPHILS ABSOLUTE MAN 0.31 K/mm3 (0.00-0.68); EOSINOPHILS PERCENT MAN 2 % (0-6); LYMPHOCYTES PERCENT MAN 9 % (21-46); METAMYELOCYTE ABSOLUTE MAN 0.46 K/mm3 (0.00-0.00); METAMYELOCYTE PERCENT MAN 3 % (0-0); MONOCYTES ABSOLUTE MAN 0.77 K/mm3 (0.16-1.47); MONOCYTES PERCENT MAN 5 % (4-13); MYELOCYTE ABSOLUTE MAN 0.15 K/mm3 (0.00-0.00); MYELOCYTE PERCENT MAN 1 % (0-0); NEUTROPHILS ABSOLUTE MAN 12.47 K/mm3 (1.96-9.15); SEG NEUTROPHILS PERCENT MAN 79 % (41-73); TOTAL CELLS COUNTED 100
--- NOTE | 2022-06-18 12:31 | NUR ---
Dr Hanna and this PC RN met with Pt's daughters and son in law at bedside. Current plan of care reviewed and discussed considering comfort care. Hospice also discussed. Educated family on comfort care and hospice philosophy. Family reports spouse has expressed concerns regarding her ability to care for Pt at home. Active listening and questions answered. Daughters are agreeable Pt's wishes are comfort care. Called and spoke with Pt's spouse Antonieta. Provided update and relayed daughters wishes. Educated on comfort care philosophy with V/U made by spouse. Spouse Antonieta also in agreement with moving forward with comfort care. Placed comfort care order, comfort care order set, and D/C maintenance medications per V/O from Dr Hanna. Palliative Care will remain available for symptom mangement and supportive visits.
--- NOTE | 2022-06-18 15:39 | NUR ---
Spiritual care visit conducted. Pt is lying in bed and not nearly as active today. Pt's spouse, Antonieta, states that his 2 dtr's and a son in law visited today from out of town. Pt was so excited to see them that he had to be reminded to breathe. Antonieta shares about the extreme tiredness she feels as well. The family arriving has boosted pt and antonieta's mood but that seems to only add to her weariness. I again encourage self-care and reinforced helpful perspectives and practices. I continue to bar attendant to the spiritual needs of pt and Antonieta by reciting inspirational scriptures and prayer. Pt repeats "God is good, Amen, God is good, Amen" after the prayer then settles back into resting. Antonieta states that the spiritual care visits are uplifting and encouraging. I will continue to remain available.
--- NOTE | 2022-06-18 18:37 | NUR ---
SHIFT SUMMARY: PATIENT IS NOW ON COMFORT CARE MEASURE. NO VITALS, IV SALINE LOCKED. GIVEN X2 ROXANOL SEE EMAR FOR DETAILS AND SCOPALAMINE PATCH APPLIED FOR SECRETION. AT BEDSIDE THROUGHOUT THE DAY. REPORT PATIENT HAS BEEN BREATHING EASILY, AND RESTING IN BED COMFORTABLY. STILL ON 3L OF O2 VIA NC WITH SPO2 OF MID 90'S. UROSTOMY PATENT AND DRAINING YELLOW URINE. PATIENT'S TWO DAUGHTER AND SON IN LAW AT BEDSIDE VISITING. PROVIDED WITH COMFORT CARE CART REFRESHMENT. CALL LIGHT IN REACH.
[2022-06-19 04:58] LABS: Hematocrit 25.4 % (37.0-53.0); Hemoglobin 7.8 g/dL (13.5-17.5)
[2022-06-19 05:14] LABS: Albumin, Blood 1.6 g/dL (3.4-5.0); Anion Gap 9 mmol/L (6-16); Blood Urea Nitrogen 80 mg/dL (8-24); CO2, Blood 21 mmol/L (21-32); Calcium, Blood 7.9 mg/dL (8.5-10.1); Chloride, Blood 114 mmol/L (98-108); Creatinine, Blood 2.67 mg/dL (0.60-1.20); Glomerular Filtration Rate 24 (60-); Glucose, Blood 98 mg/dL (70-99); Magnesium, Blood 1.9 mg/dL (1.6-2.4); Potassium, Blood 4.2 mmol/L (3.5-5.5); Sodium, Blood 144 mmol/L (136-145)
--- NOTE | 2022-06-19 05:18 | NUR ---
SHIFT SUMMARY 76 YR M ON COMFORT CARE. COVID POSITIVE. DNR. NO ACUTE CHANGES THIS SHIFT. PT HAD FAMILY BY HIS SIDE UNTIL LATE LAST NIGHT AND HAS A GREAT SUPPORT SYSTEM. FAMILY WILL BE BACK THIS A.M. HE CONTINUALLY ASKS FOR WATER AND IS BEING GIVEN SMALL AMOUNTS AT A TIME WHICH HE IS TOLERATING VERY WELL. HE APPEARS TO BE HALLUCINATING SOME HE IS TALKING TO PEOPLE WHO ARE NOT THERE. HE IS VERY PLEASANT LONG HE HAS WATER.
--- NOTE | 2022-06-19 08:14 | NUR ---
Comfort Care Visit Pt resting in bed and is pleasantly confused. Mild to moderate secrestions noted. Moderate work of breathing noted. Spoke with Primary RN Barbara and discussed case. Barbara recently offered comfort medications and will continue to monitor. Palliative Care will remain available.
--- NOTE | 2022-06-19 12:58 | NUR ---
Received report from Primary RN Barbara that family is requesting meeting to discuss goals of care further. Joint visit with Dr Hanna, Dr Vázquez, and this PC RN. Pt resting in bed with his eyes closed. Mild increase of work of breathing noted. Moderate secretions noted. Pt's spouse, 2 daughters, and son in law at bedside. Offered active listening and questions answered. Continued therapeutic listening and concerns validated. Family reports feeling more comfortable with their decision regarding comfort care. Palliative Care will remain available.
--- NOTE | 2022-06-19 18:27 | NUR ---
SHIFT SUMMARY: ON COMFORT CARE. CONTINUES TO USE ACCESORY MUSCLES FOR BREATHING. SLEPT AFTER ADMINISTRATION OF ROXANOL, ATIVAN. AT ONE POINT, FAMILY FELT THAT HE WOULD REBOUND AND QUESTIONED WHETHER COMFORT CARE WAS THE RIGHT THING. HAD LONG CONVERSATION WITH PC RN AND PROVIDERS AND PT REMAINS ON COMFORT CARE. REPOSITIONING [id number]. UROSTOMY WITH SMALL OUTPUT. FAMILY AT BEDSIDE ALL DAY.
--- NOTE | 2022-06-20 08:30 | NUR ---
pt has labored breathing that is wet, medicated for air hunger and repositioned, pt appears more comfortable after pain meds. call light in reach.
--- NOTE | 2022-06-20 10:00 | NUR ---
family called nurse into room states he took a deep breath and stopped breathing, no pulse or resp found, family present, offered to call chaplan, they declined. notified Dr. Hanna, and nurse charge rn, no other needs at this time.
== END 2022-06-20 10:00 | DRG 871 ==
LOC: ER 20:08 → ICUW 21:49 → MEDS 21:49 → ICUE 21:49 → MEDS 06-12 17:30
PROVIDERS: Emergency Medicine; Family Medicine; Internal Medicine Critical Care Medicine; Internal Medicine Nephrology; ADMIT Internal Medicine
PROC: 8E0ZXY6 Isolation (ICD-10-PCS; principal; 2022-06-06)
PROC: 3E033XZ Introduction of Vasopressor into Peripheral Vein, Percutaneous Approach (ICD-10-PCS; 2022-06-06)
PROC: 3E0333Z Introduction of Anti-inflammatory into Peripheral Vein, Percutaneous Approach (ICD-10-PCS; 2022-06-06)
PROC: XW033E5 Introduction of Remdesivir Anti-infective into Peripheral Vein, Percutaneous Approach, New Technology Group 5 (ICD-10-PCS; 2022-06-06)
PROC: 5A09457 Assistance with Respiratory Ventilation, 24-96 Consecutive Hours, Continuous Positive Airway Pressure (ICD-10-PCS; 2022-06-06)
PROC: 3E03329 Introduction of Other Anti-infective into Peripheral Vein, Percutaneous Approach (ICD-10-PCS; 2022-06-07)
DX: A41.9 Sepsis, unspecified organism (principal); G92.8 Other toxic encephalopathy; R65.21 Severe sepsis with septic shock; U07.1 COVID-19; I21.A1 Myocardial infarction type 2; J96.21 Acute and chronic respiratory failure with hypoxia; J12.82 Pneumonia due to coronavirus disease 2019; N39.0 Urinary tract infection, site not specified; N17.9 Acute kidney failure, unspecified; E87.0 Hyperosmolality and hypernatremia; J44.0 Chronic obstructive pulmonary disease with (acute) lower respiratory infection; I13.0 Hypertensive heart and chronic kidney disease with heart failure and stage 1 through stage 4 chronic kidney disease, or unspecified chronic kidney disease; I50.22 Chronic systolic (congestive) heart failure; J44.1 Chronic obstructive pulmonary disease with (acute) exacerbation; Z51.5 Encounter for palliative care; Z66 Do not resuscitate; E87.6 Hypokalemia; I25.10 Atherosclerotic heart disease of native coronary artery without angina pectoris; R13.10 Dysphagia, unspecified; I25.2 Old myocardial infarction; Z95.1 Presence of aortocoronary bypass graft; E86.9 Volume depletion, unspecified; G47.33 Obstructive sleep apnea (adult) (pediatric); G89.4 Chronic pain syndrome; E83.39 Other disorders of phosphorus metabolism; Z85.51 Personal history of malignant neoplasm of bladder; E83.42 Hypomagnesemia; N18.32 Chronic kidney disease, stage 3b; D63.1 Anemia in chronic kidney disease; Z85.05 Personal history of malignant neoplasm of liver; Z85.528 Personal history of other malignant neoplasm of kidney; Z95.0 Presence of cardiac pacemaker; Z87.891 Personal history of nicotine dependence; F17.220 Nicotine dependence, chewing tobacco, uncomplicated; Z78.1 Physical restraint status
CPT/HCPCS: 0241U; 36415; 36430; 36556; 36600; 70450; 71045; 71250; 74176; 76770; 78580; 80047; 80053; 80069; 80202; 81001; 82330; 82550; 82803; 82947; 83605; 83735; 83880; 84100; 84132; 84295; 84484; 85014; 85018; 85025; 86850; 86900; 86901; 86923; 87086; 92526; 92610; 93005; 93010; 93306; 94640; 94644; 94660; 94664; 94760; 94762; 96365; 96375; 97110; 97162; 97166; 97530; 99285-25; A9270; A9540; C1751; J0692; J1100; J1644; J1815; J2060; J2250; J2310; J2930; J3010; J3370; J3475; J3480; J7030; J7040; J7050; J7060; J7070; P9016